=== PATIENT | male | born 1955 | race Caucasian/White ===

== ENCOUNTER 2017-12-22 22:28 | Inpatient (IN) | payer MEDICARE ==
[~2017-12-22] VITALS: Ht 180.3 cm; Wt 85.3 kg
[2017-12-22] MEDS ORDERED: BUSPAR5 MG PO (22:49)
[2017-12-22] MEDS ORDERED: HUMULIN R100 U/ML SC (22:50)
[2017-12-22] MEDS ORDERED: ELIQUIS5 MG PO (22:50)
[2017-12-22] MEDS ORDERED: LASIX40 MG PO (22:50)
[2017-12-22] MEDS ORDERED: PRAVACHOL20 MG PO (22:51)
[2017-12-22] MEDS ORDERED: BETAPACE 80 MG80 MG PO (22:51)
[2017-12-22] MEDS ORDERED: GLUCOPHAGE1000 MG PO (22:51)
[2017-12-22] MEDS ORDERED: LEVOXYL75 MCG PO (22:51)
[2017-12-22] MEDS ORDERED: AMBIEN10 MG PO (22:52)
[2017-12-22] MEDS ORDERED: VITAMIN D250000 UNIT PO (22:52)
[2017-12-23] VITALS (16 sets, daily range): BP systolic 116–152; BP diastolic 49–69; BMI 26.2
[2017-12-23 00:30] LABS: BASOPHILS 0.4 % (0-2); HEMATOCRIT 33.9 % (42.0-54.0); HEMOGLOBIN 11.6 g/dL (13.5-17.5); IMMATURE GRANULOCYTES 0.1 % (0-5); LYMPHOCYTES 27.5 % (15-50); MCH 29.5 pg (26.0-34.0); MCHC 34.2 g/dL (31.0-37.0); MCV 86.3 fL (80.0-100.0); MEAN PLATELET VOLUME 8.5 fL (7.4-10.4); MONOCYTES 11.6 % (2-11); NEUTROPHILS 56.4 % (40-80); PLATELET COUNT 273 10x3/uL (130-400); RBC 3.93 10x6/uL (4.20-6.10); RDW 12.9 % (11.5-14.5); WBC 7.3 10x3/uL (4.8-10.8)
[2017-12-23 00:41] LABS: KETONE - SERUM NEGATIVE (NEGATIVE)
[2017-12-23 00:44] LABS: ALBUMIN 2.4 g/dL (3.4-5.0); ALKALINE PHOSPHATASE 92 U/L (46-116); ALT (SGPT) 18 U/L (10-68); BILIRUBIN - TOTAL 0.17 mg/dL (0.2-1.3); CALC OSMOLALITY 279 mosm/kg (275-300); CALCIUM 8.5 mg/dL (8.5-10.1); CARBON DIOXIDE 25.3 mmol/L (21.0-32.0); CHLORIDE - SERUM 100 mmol/L (98-107); CREATININE - SERUM 1.3 mg/dL (0.6-1.3); GLUCOSE 336 mg/dL (74-106); PROTEIN - SERUM 7.7 g/dL (6.4-8.2); SODIUM 130 mmol/L (136-145); UREA NITROGEN 30 mg/dL (7-18); eGFR NON AFRICAN AMERICAN 60 mL/min (90-120)
[2017-12-23 00:57] LABS: COLOR YELLOW (YELLOW)
[2017-12-23 00:58] LABS: APPEARANCE CLEAR (CLEAR); BILIRUBIN NEGATIVE (NEGATIVE); GLUCOSE 500 mg/dL (NEGATIVE); KETONE NEGATIVE (NEGATIVE); NITRITE NEGATIVE (NEGATIVE); PROTEIN NEGATIVE (NEGATIVE); UROBILINOGEN NORMAL (NORMAL)
[2017-12-23 17:08] LABS: ERYTHROCYTE SEDIMENTATION RATE 114 mm/hr (0-20)
[2017-12-24 01:12] VITALS: BP 112/42
[2017-12-24 05:42] LABS: BASOPHILS 0.5 % (0-2); EOSINOPHILS 5.6 % (0-7); HEMATOCRIT 30.8 % (42.0-54.0); HEMOGLOBIN 10.5 g/dL (13.5-17.5); IMMATURE GRANULOCYTES 0.3 % (0-5); LYMPHOCYTES 31.6 % (15-50); MCH 29.2 pg (26.0-34.0); MCHC 34.1 g/dL (31.0-37.0); MCV 85.6 fL (80.0-100.0); MEAN PLATELET VOLUME 8.5 fL (7.4-10.4); MONOCYTES 8.6 % (2-11); NEUTROPHILS 53.4 % (40-80); PLATELET COUNT 291 10x3/uL (130-400); RDW 12.8 % (11.5-14.5)
[2017-12-24 05:57] VITALS: BP 121/39
[2017-12-24 06:04] LABS: ANION GAP 11.6 mmol/L (8-16); CALCIUM 8.1 mg/dL (8.5-10.1); CARBON DIOXIDE 24.4 mmol/L (21.0-32.0); CREATININE - SERUM 1.1 mg/dL (0.6-1.3)
[2017-12-24 08:58] VITALS: BP 136/68
[2017-12-24 13:01] VITALS: Ht 180.3 cm; Wt 85.3 kg
[2017-12-24 16:16] VITALS: BP 134/68
[2017-12-24 19:58] VITALS: BP 136/64
[2017-12-25 00:39] VITALS: BP 115/64
[2017-12-25 05:20] VITALS: BP 134/64
[2017-12-25 05:54] LABS: BASOPHILS 0.5 % (0-2); HEMATOCRIT 30.6 % (42.0-54.0); HEMOGLOBIN 10.6 g/dL (13.5-17.5); IMMATURE GRANULOCYTES 0.2 % (0-5); LYMPHOCYTES 35.6 % (15-50); MCH 29.2 pg (26.0-34.0); MCHC 34.6 g/dL (31.0-37.0); MCV 84.3 fL (80.0-100.0); MEAN PLATELET VOLUME 8.6 fL (7.4-10.4); MONOCYTES 7.9 % (2-11); NEUTROPHILS 51.8 % (40-80); PLATELET COUNT 267 10x3/uL (130-400); RBC 3.63 10x6/uL (4.20-6.10); RDW 12.8 % (11.5-14.5); WBC 6.2 10x3/uL (4.8-10.8)
[2017-12-25 06:19] LABS: ALBUMIN 1.8 g/dL (3.4-5.0); ALKALINE PHOSPHATASE 85 U/L (46-116); ALT (SGPT) 16 U/L (10-68); BILIRUBIN - TOTAL 0.26 mg/dL (0.2-1.3); CALC OSMOLALITY 277 mosm/kg (275-300); CALCIUM 7.9 mg/dL (8.5-10.1); CARBON DIOXIDE 22.5 mmol/L (21.0-32.0); CHLORIDE - SERUM 104 mmol/L (98-107); CREATININE - SERUM 0.9 mg/dL (0.6-1.3); GLUCOSE 269 mg/dL (74-106); POTASSIUM - SERUM 4.4 mmol/L (3.5-5.1); PROTEIN - SERUM 6.8 g/dL (6.4-8.2); SODIUM 134 mmol/L (136-145); UREA NITROGEN 15 mg/dL (7-18); eGFR NON AFRICAN AMERICAN > 90 mL/min (90-120)
[2017-12-25 12:53] VITALS: BP 129/60
[2017-12-25 16:13] VITALS: BP 135/58
[2017-12-25 20:46] VITALS: BP 150/64
[2017-12-26 01:19] VITALS: BP 132/61
[2017-12-26 05:05] VITALS: BP 122/58
[2017-12-26 05:23] LABS: BASOPHILS 0.1 % (0-2); EOSINOPHILS 1.9 % (0-7); HEMATOCRIT 30.1 % (42.0-54.0); HEMOGLOBIN 10.5 g/dL (13.5-17.5); IMMATURE GRANULOCYTES 0.3 % (0-5); LYMPHOCYTES 23.9 % (15-50); MCH 29.5 pg (26.0-34.0); MCHC 34.9 g/dL (31.0-37.0); MCV 84.6 fL (80.0-100.0); MEAN PLATELET VOLUME 8.3 fL (7.4-10.4); MONOCYTES 8.3 % (2-11); NEUTROPHILS 65.5 % (40-80); PLATELET COUNT 289 10x3/uL (130-400); RBC 3.56 10x6/uL (4.20-6.10); RDW 12.6 % (11.5-14.5); WBC 7.4 10x3/uL (4.8-10.8)
[2017-12-26 05:56] LABS: ALBUMIN 1.9 g/dL (3.4-5.0); BILIRUBIN - TOTAL 0.29 mg/dL (0.2-1.3); CREATININE - SERUM 1.1 mg/dL (0.6-1.3)
[2017-12-26 06:06] LABS: ANION GAP 11.6 mmol/L (8-16); POTASSIUM - SERUM 3.6 mmol/L (3.5-5.1)
[2017-12-26 07:35] VITALS: BP 138/55
[2017-12-26 11:41] VITALS: BP 123/67
[2017-12-26 15:53] VITALS: BP 145/55
[2017-12-26 21:28] VITALS: BP 132/57
[2017-12-27 05:29] VITALS: BP 124/47
[2017-12-27 07:07] LABS: ALBUMIN 1.6 g/dL (3.4-5.0); ALKALINE PHOSPHATASE 80 U/L (46-116); BILIRUBIN - TOTAL 0.21 mg/dL (0.2-1.3); CALC OSMOLALITY 271 mosm/kg (275-300); CALCIUM 8.1 mg/dL (8.5-10.1); CARBON DIOXIDE 23.5 mmol/L (21.0-32.0); CHLORIDE - SERUM 103 mmol/L (98-107); GLUCOSE 197 mg/dL (74-106); POTASSIUM - SERUM 3.3 mmol/L (3.5-5.1); PROTEIN - SERUM 6.2 g/dL (6.4-8.2); SODIUM 133 mmol/L (136-145); UREA NITROGEN 16 mg/dL (7-18); eGFR NON AFRICAN AMERICAN 81 mL/min (90-120)
[2017-12-27 07:08] LABS: ALT (SGPT) 7 U/L (10-68)
[2017-12-27 07:10] LABS: BASOPHILS 0.3 % (0-2); EOSINOPHILS 2.5 % (0-7); HEMATOCRIT 28.2 % (42.0-54.0); HEMOGLOBIN 9.7 g/dL (13.5-17.5); IMMATURE GRANULOCYTES 0.1 % (0-5); LYMPHOCYTES 22.1 % (15-50); MCH 28.7 pg (26.0-34.0); MCHC 34.4 g/dL (31.0-37.0); MCV 83.4 fL (80.0-100.0); MEAN PLATELET VOLUME 8.3 fL (7.4-10.4); MONOCYTES 10.2 % (2-11); NEUTROPHILS 64.8 % (40-80); PLATELET COUNT 271 10x3/uL (130-400); RBC 3.38 10x6/uL (4.20-6.10); RDW 12.6 % (11.5-14.5); WBC 7.6 10x3/uL (4.8-10.8)
[2017-12-27 13:06] VITALS: BP 129/54
[2017-12-27 20:33] VITALS: BP 137/54
[2017-12-28 05:28] LABS: BASOPHILS 0.2 % (0-2); EOSINOPHILS 3.6 % (0-7); HEMATOCRIT 28.7 % (42.0-54.0); IMMATURE GRANULOCYTES 0.3 % (0-5); LYMPHOCYTES 23.5 % (15-50); MCHC 34.8 g/dL (31.0-37.0); MCV 83.2 fL (80.0-100.0); MEAN PLATELET VOLUME 8.3 fL (7.4-10.4); MONOCYTES 9.3 % (2-11); NEUTROPHILS 63.1 % (40-80); PLATELET COUNT 282 10x3/uL (130-400); RBC 3.45 10x6/uL (4.20-6.10); RDW 12.6 % (11.5-14.5); WBC 5.8 10x3/uL (4.8-10.8)
[2017-12-28 05:38] VITALS: BP 145/50
[2017-12-28 05:49] LABS: ALBUMIN 1.6 g/dL (3.4-5.0); ALKALINE PHOSPHATASE 87 U/L (46-116); BILIRUBIN - TOTAL 0.18 mg/dL (0.2-1.3); CALC OSMOLALITY 278 mosm/kg (275-300); CALCIUM 8.2 mg/dL (8.5-10.1); CARBON DIOXIDE 24.4 mmol/L (21.0-32.0); CHLORIDE - SERUM 105 mmol/L (98-107); GLUCOSE 208 mg/dL (74-106); POTASSIUM - SERUM 3.8 mmol/L (3.5-5.1); PROTEIN - SERUM 6.5 g/dL (6.4-8.2); SODIUM 136 mmol/L (136-145); UREA NITROGEN 14 mg/dL (7-18); eGFR NON AFRICAN AMERICAN 81 mL/min (90-120)
[2017-12-28 05:54] LABS: ALT (SGPT) 12 U/L (10-68)
[2017-12-28 21:17] VITALS: BP 134/103
[2017-12-29 05:31] LABS: BASOPHILS 0.2 % (0-2); EOSINOPHILS 2.1 % (0-7); HEMATOCRIT 26.9 % (42.0-54.0); HEMOGLOBIN 9.7 g/dL (13.5-17.5); IMMATURE GRANULOCYTES 0.2 % (0-5); LYMPHOCYTES 24.8 % (15-50); MCH 29.8 pg (26.0-34.0); MCHC 36.1 g/dL (31.0-37.0); MCV 82.8 fL (80.0-100.0); MEAN PLATELET VOLUME 8.2 fL (7.4-10.4); NEUTROPHILS 64.7 % (40-80); PLATELET COUNT 310 10x3/uL (130-400); RBC 3.25 10x6/uL (4.20-6.10); RDW 12.6 % (11.5-14.5); WBC 6.5 10x3/uL (4.8-10.8)
[2017-12-29 05:53] LABS: ALBUMIN 1.6 g/dL (3.4-5.0); ANION GAP 13.1 mmol/L (8-16); BILIRUBIN - TOTAL 0.17 mg/dL (0.2-1.3); CARBON DIOXIDE 23.6 mmol/L (21.0-32.0); CREATININE - SERUM 1.1 mg/dL (0.6-1.3); POTASSIUM - SERUM 3.7 mmol/L (3.5-5.1); PROTEIN - SERUM 6.4 g/dL (6.4-8.2)
[2017-12-29 06:35] VITALS: BP 133/64
[2017-12-29 09:03] VITALS: BP 116/41
[2017-12-29 12:11] VITALS: BP 124/87
[2017-12-29 20:08] LABS: AEROBE ID Final report (())
[2017-12-29 20:40] VITALS: BP 142/75
[2017-12-30 00:05] VITALS: BP 136/58
[2017-12-30 04:40] LABS: BASOPHILS 0.4 % (0-2); EOSINOPHILS 4.9 % (0-7); HEMATOCRIT 30.2 % (42.0-54.0); HEMOGLOBIN 10.4 g/dL (13.5-17.5); IMMATURE GRANULOCYTES 0.4 % (0-5); LYMPHOCYTES 35.7 % (15-50); MCH 29.1 pg (26.0-34.0); MCHC 34.4 g/dL (31.0-37.0); MCV 84.4 fL (80.0-100.0); MEAN PLATELET VOLUME 8.3 fL (7.4-10.4); MONOCYTES 8.5 % (2-11); NEUTROPHILS 50.1 % (40-80); PLATELET COUNT 359 10x3/uL (130-400); RBC 3.58 10x6/uL (4.20-6.10); RDW 12.6 % (11.5-14.5); WBC 5.5 10x3/uL (4.8-10.8)
[2017-12-30 04:52] VITALS: BP 136/65
[2017-12-30 04:56] LABS: CALCIUM 8.1 mg/dL (8.5-10.1); CARBON DIOXIDE 27.7 mmol/L (21.0-32.0); CREATININE - SERUM 1.2 mg/dL (0.6-1.3); POTASSIUM - SERUM 3.7 mmol/L (3.5-5.1)
[2017-12-30] MEDS ORDERED: FLAGYL500 MG PO (12:20)
[2017-12-30] MEDS ORDERED: PROTONIX40 MG PO (12:20)
[2017-12-30] MEDS ORDERED: LEVAQUIN750 MG PO (12:21)
[2017-12-30 12:53] VITALS: BP 116/56
== END 2017-12-30 18:02 | disposition home or self-care (01) | DRG 628 ==
LOC: D.ER 22:28 → D.M2 12-23 01:39 → D.EDHOLD 12-23 01:39 → D.M2 12-23 11:29
PROVIDERS: Family Medicine; Internal Medicine Nephrology; Podiatrist Foot & Ankle Surgery
PROC: 0QBN0ZZ Excision of Right Metatarsal, Open Approach (ICD-10-PCS; principal; 2017-12-25 07:30)
PROC: 0H9MXZZ Drainage of Right Foot Skin, External Approach (ICD-10-PCS; 2017-12-25 07:30)
PROC: 0HQMXZZ Repair Right Foot Skin, External Approach (ICD-10-PCS; 2017-12-28)
DX: E11.69 Type 2 diabetes mellitus with other specified complication (principal); A48.0 Gas gangrene; E43 Unspecified severe protein-calorie malnutrition; E11.52 Type 2 diabetes mellitus with diabetic peripheral angiopathy with gangrene; M86.171 Other acute osteomyelitis, right ankle and foot; E87.1 Hypo-osmolality and hyponatremia; E11.65 Type 2 diabetes mellitus with hyperglycemia; Z79.4 Long term (current) use of insulin; E03.9 Hypothyroidism, unspecified; I10 Essential (primary) hypertension; F41.9 Anxiety disorder, unspecified; I48.91 Unspecified atrial fibrillation; G47.00 Insomnia, unspecified; D64.9 Anemia, unspecified; Z68.26 Body mass index [BMI] 26.0-26.9, adult; G62.9 Polyneuropathy, unspecified

== ENCOUNTER → 2018-02-22 17:26 | Outpatient (CLI) | payer MEDICARE ==
[2017-12-24 13:01] VITALS: BMI 26.2
[~2018-02-22 17:26] MED LIST: AMBIEN10 MG PO; BETAPACE 80 MG80 MG PO; BUSPAR5 MG PO; ELIQUIS5 MG PO; FLAGYL500 MG PO; GLUCOPHAGE1000 MG PO; HUMULIN R100 U/ML SC; LASIX40 MG PO; LEVAQUIN750 MG PO; LEVEMIR IN100 UNITS/ SC; LEVOXYL75 MCG PO; PRAVACHOL20 MG PO; PROTONIX40 MG PO; VITAMIN D250000 UNIT PO
== END | disposition home or self-care (01) ==
LOC: D.LABREF 17:26
DX: L03.115 Cellulitis of right lower limb (principal)

== ENCOUNTER 2018-03-08 10:42 | Inpatient (IN) | payer MEDICARE ==
[~2018-03-08] VITALS: Ht 180.3 cm; Wt 79.4 kg
--- NOTE | ~2018-03-08 | MORECARE ---
CASE MANAGEMENT DISCHARGE SUMMARY PATIENT: CAROLE MCKENNA UNIT: [id number] ADM DATE: 03/08/18 AGE: 63 : 57 SEX: M ROOM/BED: D.2233 AUTHOR: STACI,DOC PHYSICIAN: REFERRING PHYSICIAN: ELEN VIDES DPM DATE OF SERVICE: 03/14/18 Discharge Plan Patient Name: CAROLE MCKENNA Facility: [facility]:[place] : 1955 Planned Disposition: Home with Home Health Anticipated Discharge Date: Discharge Date: 03/13/2018 Expected LOS: Initial Reviewer: [email or web address] Initial Review Date: 03/10/2018 Generated: 03/14/18 9:59 am Comments DCP- Discharge Planning Updated by [email or web address]: Maliha Flores on 03/14/18 7:[address] LATE ENTRY: PATIENT WAS DISCHARGED YESTERDAY EVENING. I CALLED AND SPOKE TO LARA WITH [facility] IN [place] AND SENT CLINICAL. SHE STATES THEY WILL SEE HIM TOMORROW. DCP- Discharge Planning Updated by [email or web address]: Maliha Flores on 03/13/18 11:[address] Patient states he does not want to use Dr. Easley for his PCP. States since he has moved to [place] that [place] or [place] is too far to drive. He would like to be established with Dr. Graham if possible. I called and spoke to Claire at Dr. Graham's office and clinical faxed to her per patient request to try and get him established with a PCP. Faxed clinical to [phone]. Patient states he would like to use [facility] in [place] if possible for dressing changes post hospitalization. CM will continue to follow and assist with discharge planning/needs. DCP- Discharge Planning Updated by [email or web address]: Maliha Flores on 03/10/18 1:[address] Patient Name: CAROLE MCKENNA Admission Status: ER Accout number: [id number] Admission Date: 03-08-2018 : 1955 Admission Diagnosis: Attending: ELEN VIDES Current LOS: 2 Anticipated DC Date: Planned Disposition: Home with Home Health Primary Insurance: MEDICARE A & B Discharge Planning Comments: CM met with patient to discuss discharge planning, he is alone in the room. States he lives alone, is independent with all ADL's and IADL's. States he ambulates with a cane. States he checks his blood sugar twice a day. States he has had [facility] in the past and may need home health again, JENNYFER for [facility] in [place] signed. I did tell the patient he would need a PCP for home health and he does not have a PCP at this time, he has seen Dr. Easley in the past prior to moving to [place]. He states he has no civil engineering design draftsperson and plans on driving himself home on discharge. He denies further need for DME. CM will continue to follow and assist with discharge planning/needs. Service Writer: Maliha Flores [facility] - Discharge Planning Initial Assessment Updated by [id number]: Maliha Flores on 03/10/18 2:15 pm * Is the patient Alert and Oriented? Yes * How many steps to enter\exit or inside your home? 0/0 * PCP No PCP * Pharmacy [facility] in [place] * Preadmission Environment Home Alone * ADLs Partial Dependent * Partial ADLs (Assistance needed) Ambulation * Equipment Cane Glucometer * List name and contact numbers for known caregivers / representatives who currently or will assist patient after discharge: No civil engineering design draftsperson * Verbal permission to speak to the caregivers and representatives has been obtained from the patient. N/A * Community resources currently utilized None * Additional services required to return to the preadmission environment? No * Can the patient safely return to the preadmission environment? Yes * Has this patient been hospitalized within the prior 30 days at any hospital? No Coverage Notice Reviewer: [id number] - Maliha Flores Notice Issued Date-Time: 03/13/2018 12:00 Notice Type: IM Discharge Notice Notice Delivered To: Patient Relationship to Patient: Self Supervisor [employer] Name: Delivery Method: HAND - Hand Delivered Racheal Days: Prior Verbal Notification: Recipient Understood Notice: Yes Recipient Signature: Yes Med Rec Note Co-signed by Attending: Coverage Notice Comment: IMM explained, signed, copy given, original placed in MR Last DP export: 03/14/18 7:52 Patient Name: CAROLE MCKENNA Page [id number] at 0859 All edits/amendments must be made on the electronic document DICTATION DATE: 03/14/18857 WOOD TURNER: ALEJANDRA 03/14/18857 RPT#: [id number] DC DATE:03/13/18 STATUS: DIS IN [facility] [address] [place] [address] END OF REPORT
--- NOTE | ~2018-03-08 | MORECARE ---
CASE MANAGEMENT DISCHARGE SUMMARY PATIENT: CAROLE MCKENNA UNIT: [id number] ADM DATE: 03/08/18 AGE: 63 : 57 SEX: M ROOM/BED: D.2233 AUTHOR: MEGHAN SMALL PHYSICIAN: REFERRING PHYSICIAN: ELEN VIDES DPM DATE OF SERVICE: 03/10/18 Discharge Plan Patient Name: CAROLE MCKENNA [facility] [facility] 1955 Planned Disposition: Home with Home Health Anticipated Discharge Date: Discharge Date: Expected LOS: Initial Reviewer: [id number] Initial Review Date: 03/10/2018 Generated: 03/10/18 3:11 pm Patient Name: CAROLE MCKENNA Page [id number] at 1411 All edits/amendments must be made on the electronic document DICTATION DATE: 03/10/18 1411 DEBT AND BUDGET COUNSELOR: ALEJANDRA 03/10/18 1411 RPT#: [id number] DC DATE: STATUS: ADM IN [facility] [address] [place] [address] END OF REPORT
--- NOTE | ~2018-03-08 | MORECARE ---
CASE MANAGEMENT DISCHARGE SUMMARY PATIENT: CAROLE MCKENNA UNIT: [id number] ADM DATE: 03/08/18 AGE: 63 : 57 SEX: M ROOM/BED: D.2233 AUTHOR: STACI,DOC PHYSICIAN: REFERRING PHYSICIAN: ELEN VIDES DPM DATE OF SERVICE: 03/14/18 Discharge Plan Patient Name: CAROLE MCKENNA Facility: [facility]:[place] : 1955 Planned Disposition: Home with Home Health Anticipated Discharge Date: Discharge Date: 03/13/2018 Expected LOS: Initial Reviewer: [email or web address] Initial Review Date: 03/10/2018 Generated: 03/14/18 9:52 am Comments DCP- Discharge Planning Updated by [email or web address]: Maliha Sandra on 03/13/18 11:[address] Patient states he does not want to use Dr. Easley for his PCP. States since he has moved to [place] that [place] or [place] is too far to drive. He would like to be established with Dr. Graham if possible. I called and spoke to Claire at Dr. Graham's office and clinical faxed to her per patient request to try and get him established with a PCP. Faxed clinical to [phone]. Patient states he would like to use [facility] in [place] if possible for dressing changes post hospitalization. CM will continue to follow and assist with discharge planning/needs. DCP- Discharge Planning Updated by [id number]: Maliha Flores on 03/10/18 1:[address] Patient Name: CAROLE MCKENNA Admission Status: ER Accout number: [id number] Admission Date: 03-08-2018 : 1955 Admission Diagnosis: Attending: ELEN VIDES Current LOS: 2 Anticipated DC Date: Planned Disposition: Home with Home Health Primary Insurance: MEDICARE A & B Discharge Planning Comments: CM met with patient to discuss discharge planning, he is alone in the room. States he lives alone, is independent with all ADL's and IADL's. States he ambulates with a cane. States he checks his blood sugar twice a day. States he has had [facility] in the past and may need home health again, JENNYFER for [facility] in [place] signed. I did tell the patient he would need a PCP for home health and he does not have a PCP at this time, he has seen Dr. Easley in the past prior to moving to [place]. He states he has no contact lens curve grinder and plans on driving himself home on discharge. He denies further need for DME. CM will continue to follow and assist with discharge planning/needs. Sportspersons: Maliha Flores [facility] - Discharge Planning Initial Assessment Updated by [email or web address]: Maliha Flores on 03/10/18 2:15 pm * Is the patient Alert and Oriented? Yes * How many steps to enter\exit or inside your home? 0/0 * PCP No PCP * Pharmacy [facility] in [place] * Preadmission Environment Home Alone * ADLs Partial Dependent * Partial ADLs (Assistance needed) Ambulation * Equipment Cane Glucometer * List name and contact numbers for known caregivers / representatives who currently or will assist patient after discharge: No contact lens curve grinder * Verbal permission to speak to the caregivers and representatives has been obtained from the patient. N/A * Community resources currently utilized None * Additional services required to return to the preadmission environment? No * Can the patient safely return to the preadmission environment? Yes * Has this patient been hospitalized within the prior 30 days at any hospital? No External Providers External Provider: [facility] [facility] Next Contact Date: Service Request Date: Service Type: Resolution: Reviewer: Comments: Coverage Notice Reviewer: [id number] - Maliha Flores Notice Issued Date-Time: 03/13/2018 12:00 Notice Type: IM Discharge Notice Notice Delivered To: Patient Relationship to Patient: Self Pole Tester Name: Delivery Method: HAND - Hand Delivered Racheal Days: Prior Verbal Notification: Recipient Understood Notice: Yes Recipient Signature: Yes Med Rec Note Co-signed by Attending: Coverage Notice Comment: IMM explained, signed, copy given, original placed in MR Last DP export: 03/13/18 11:07 Patient Name: CAROLE MCKENNA Page [id number] at 0852 All edits/amendments must be made on the electronic document DICTATION DATE: 03/14/18 0851 PATENT SEARCHER: ALEJANDRA 03/14/18 0851 RPT#: [id number] DC DATE:03/13/18 STATUS: DIS IN [facility] [address] [place] [address] END OF REPORT
--- NOTE | ~2018-03-08 | MORECARE ---
CASE MANAGEMENT DISCHARGE SUMMARY PATIENT: CAROLE MCKENNA UNIT: [id number] ADM DATE: 03/08/18 AGE: 63 : 57 SEX: M ROOM/BED: D.2233 AUTHOR: STACI,DOC PHYSICIAN: REFERRING PHYSICIAN: ELEN VIDES DPM DATE OF SERVICE: 03/13/18 Discharge Plan Patient Name: CAROLE MCKENNA Facility: [facility]:[place] : 1955 Planned Disposition: Home with Home Health Anticipated Discharge Date: Discharge Date: Expected LOS: Initial Reviewer: [email or web address] Initial Review Date: 03/10/2018 Generated: 03/13/18 1:00 pm Comments DCP- Discharge Planning Updated by [id number]: Maliha Flores on 03/10/18 1:[address] Patient Name: CAROLE MCKENNA Admission Status: ER Accout number: [id number] Admission Date: 03-08-2018 : 1955 Admission Diagnosis: Attending: ELEN VIDES Current LOS: 2 Anticipated DC Date: Planned Disposition: Home with Home Health Primary Insurance: MEDICARE A & B Discharge Planning Comments: CM met with patient to discuss discharge planning, he is alone in the room. States he lives alone, is independent with all ADL's and IADL's. States he ambulates with a cane. States he checks his blood sugar twice a day. States he has had [facility] in the past and may need home health again, JENNYFER for [facility] in [place] signed. I did tell the patient he would need a PCP for home health and he does not have a PCP at this time, he has seen Dr. Easley in the past prior to moving to [place]. He states he has no auto parts counter person and plans on driving himself home on discharge. He denies further need for DME. CM will continue to follow and assist with discharge planning/needs. Automotive Parts Specialist: Maliha Flores [facility] - Discharge Planning Initial Assessment Updated by [id number]: Maliha Flores on 03/10/18 2:15 pm * Is the patient Alert and Oriented? Yes * How many steps to enter\exit or inside your home? 0/0 * PCP No PCP * Pharmacy [facility] in [place] * Preadmission Environment Home Alone * ADLs Partial Dependent * Partial ADLs (Assistance needed) Ambulation * Equipment Cane Glucometer * List name and contact numbers for known caregivers / representatives who currently or will assist patient after discharge: No auto parts counter person * Verbal permission to speak to the caregivers and representatives has been obtained from the patient. N/A * Community resources currently utilized None * Additional services required to return to the preadmission environment? No * Can the patient safely return to the preadmission environment? Yes * Has this patient been hospitalized within the prior 30 days at any hospital? No External Providers External Provider: OTHER-OTHER Next Contact Date: Service Request Date: Service Type: Resolution: Reviewer: Comments: Last DP export: 03/10/18 1:35 p Patient Name: CAROLE MCKENNA Page 84056 at 1200 All edits/amendments must be made on the electronic document DICTATION DATE: 03/13/18 1200 SENIOR BIOSTATISTICIAN/GROUP LEADER: ALEJANDRA 03/13/18 1200 RPT#: [id number] DC DATE: STATUS: ADM IN [facility] [address] [place] [address] END OF REPORT
--- NOTE | ~2018-03-08 | MORECARE ---
CASE MANAGEMENT DISCHARGE SUMMARY PATIENT: CAROLE MCKENNA UNIT: [id number] ADM DATE: 03/08/18 AGE: 63 : 57 SEX: M ROOM/BED: D.2233 AUTHOR: STACI,DOC PHYSICIAN: REFERRING PHYSICIAN: ELEN VIDES DPM DATE OF SERVICE: 03/13/18 Discharge Plan Patient Name: CAROLE MCKENNA Facility: [facility]:[place] : 1955 Planned Disposition: Home with Home Health Anticipated Discharge Date: Discharge Date: Expected LOS: Initial Reviewer: [id number] Initial Review Date: 03/10/2018 Generated: 03/13/18 1:07 pm Comments DCP- Discharge Planning Updated by [email or web address]: Maliha Sandra on 03/13/18 11:[address] Patient states he does not want to use Dr. Easley for his PCP. States since he has moved to [place] that [place] or [place] is too far to drive. He would like to be established with Dr. Graham if possible. I called and spoke to Claire at Dr. Graham's office and clinical faxed to her per patient request to try and get him established with a PCP. Faxed clinical to [phone]. Patient states he would like to use [facility] in [place] if possible for dressing changes post hospitalization. CM will continue to follow and assist with discharge planning/needs. DCP- Discharge Planning Updated by [email or web address]: Maliha Ayalamorgan on 03/10/18 1:[address] Patient Name: CAROLE MCKENNA Admission Status: ER Accout number: [id number] Admission Date: 03-08-2018 : 1955 Admission Diagnosis: Attending: ELEN VIDES Current LOS: 2 Anticipated DC Date: Planned Disposition: Home with Home Health Primary Insurance: MEDICARE A & B Discharge Planning Comments: CM met with patient to discuss discharge planning, he is alone in the room. States he lives alone, is independent with all ADL's and IADL's. States he ambulates with a cane. States he checks his blood sugar twice a day. States he has had [facility] in the past and may need home health again, JENNYFER for [facility] in [place] signed. I did tell the patient he would need a PCP for home health and he does not have a PCP at this time, he has seen Dr. Easley in the past prior to moving to [place]. He states he has no jewelry salesperson and plans on driving himself home on discharge. He denies further need for DME. CM will continue to follow and assist with discharge planning/needs. First Aid Attendant: Maliha Flores [facility] - Discharge Planning Initial Assessment Updated by [email or web address]: Maliha Flores on 03/10/18 2:15 pm * Is the patient Alert and Oriented? Yes * How many steps to enter\exit or inside your home? 0/0 * PCP No PCP * Pharmacy [facility] in [place] * Preadmission Environment Home Alone * ADLs Partial Dependent * Partial ADLs (Assistance needed) Ambulation * Equipment Cane Glucometer * List name and contact numbers for known caregivers / representatives who currently or will assist patient after discharge: No jewelry salesperson * Verbal permission to speak to the caregivers and representatives has been obtained from the patient. N/A * Community resources currently utilized None * Additional services required to return to the preadmission environment? No * Can the patient safely return to the preadmission environment? Yes * Has this patient been hospitalized within the prior 30 days at any hospital? No Coverage Notice Reviewer: [id number] - Maliha Flores Notice Issued Date-Time: 03/13/2018 12:00 Notice Type: IM Discharge Notice Notice Delivered To: Patient Relationship to Patient: Self Pocket Closer Name: Delivery Method: HAND - Hand Delivered Racheal Days: Prior Verbal Notification: Recipient Understood Notice: Yes Recipient Signature: Yes Med Rec Note Co-signed by Attending: Coverage Notice Comment: IMM explained, signed, copy given, original placed in MR Last DP export: 03/13/18 11:00 Patient Name: CAROLE MCKENNA Page 09535 at 1207 All edits/amendments must be made on the electronic document DICTATION DATE: 03/13/187 INSOLE AND OUTSOLE PREPARER: ALEJANDRA 03/13/181206 RPT#: [id number] DC DATE: STATUS: ADM IN [facility] [address] [place] [address] END OF REPORT
--- NOTE | ~2018-03-08 | MORECARE ---
CASE MANAGEMENT DISCHARGE SUMMARY PATIENT: CAROLE MCKENNA UNIT: [id number] ADM DATE: 03/08/18 AGE: 63 : 57 SEX: M ROOM/BED: D.2233 AUTHOR: STACI,DOC PHYSICIAN: REFERRING PHYSICIAN: ELEN VIDES DPM DATE OF SERVICE: 03/14/18 Discharge Plan Patient Name: CAROLE MCKENNA Facility: [facility]:[place] : 1955 Planned Disposition: Home with Home Health Anticipated Discharge Date: Discharge Date: 03/13/2018 Expected LOS: 0 Initial Reviewer: [email or web address] Initial Review Date: 03/10/2018 Generated: 03/14/18 10:27 am Comments DCP- Discharge Planning Updated by [email or web address]: Maliha Flores on 03/14/18 7:[address] LATE ENTRY: PATIENT WAS DISCHARGED YESTERDAY EVENING. I CALLED AND SPOKE TO LARA WITH [facility] IN [place] AND SENT CLINICAL. SHE STATES THEY WILL SEE HIM TOMORROW. DCP- Discharge Planning Updated by [id number]: Maliha Flores on 03/13/18 11:[address] Patient states he does not want to use Dr. Easley for his PCP. States since he has moved to [place] that [place] or [place] is too far to drive. He would like to be established with Dr. Graham if possible. I called and spoke to Claire at Dr. Graham's office and clinical faxed to her per patient request to try and get him established with a PCP. Faxed clinical to [phone]. Patient states he would like to use [facility] in [place] if possible for dressing changes post hospitalization. CM will continue to follow and assist with discharge planning/needs. DCP- Discharge Planning Updated by [email or web address]: Maliha Sandra on 03/10/18 1:[address] Patient Name: CAROLE MCKENNA Admission Status: ER Accout number: [id number] Admission Date: 03-08-2018 : 1955 Admission Diagnosis: Attending: ELEN VIDES Current LOS: 2 Anticipated DC Date: Planned Disposition: Home with Home Health Primary Insurance: MEDICARE A & B Discharge Planning Comments: CM met with patient to discuss discharge planning, he is alone in the room. States he lives alone, is independent with all ADL's and IADL's. States he ambulates with a cane. States he checks his blood sugar twice a day. States he has had [facility] in the past and may need home health again, JENNYFRE for [facility] in [place] signed. I did tell the patient he would need a PCP for home health and he does not have a PCP at this time, he has seen Dr. Easley in the past prior to moving to [place]. He states he has no sales person and plans on driving himself home on discharge. He denies further need for DME. CM will continue to follow and assist with discharge planning/needs. Teller Manager: Maliha Flores [facility] - Discharge Planning Initial Assessment Updated by [id number]: Maliha Flores on 03/10/18 2:15 pm * Is the patient Alert and Oriented? Yes * How many steps to enter\exit or inside your home? 0/0 * PCP No PCP * Pharmacy [facility] in [place] * Preadmission Environment Home Alone * ADLs Partial Dependent * Partial ADLs (Assistance needed) Ambulation * Equipment Cane Glucometer * List name and contact numbers for known caregivers / representatives who currently or will assist patient after discharge: No sales person * Verbal permission to speak to the caregivers and representatives has been obtained from the patient. N/A * Community resources currently utilized None * Additional services required to return to the preadmission environment? No * Can the patient safely return to the preadmission environment? Yes * Has this patient been hospitalized within the prior 30 days at any hospital? No Coverage Notice Reviewer: [id number] - Maliha Flores Notice Issued Date-Time: 03/13/2018 12:00 Notice Type: IM Discharge Notice Notice Delivered To: Patient Relationship to Patient: Self Butter Melter Name: Delivery Method: HAND - Hand Delivered Racheal Days: Prior Verbal Notification: Recipient Understood Notice: Yes Recipient Signature: Yes Med Rec Note Co-signed by Attending: Coverage Notice Comment: IMM explained, signed, copy given, original placed in MR Last DP export: 03/14/18 7:59 Patient Name: CAROLE MCKENNA Page 96686 at 0927 All edits/amendments must be made on the electronic document DICTATION DATE: 03/14/18925 POOL NURSE: ALEJANDRA 03/14/18925 RPT#: [id number] DC DATE:03/13/18 STATUS: DIS IN [facility] [address] [facility] [place] [address] END OF REPORT
--- NOTE | ~2018-03-08 | MORECARE ---
CASE MANAGEMENT DISCHARGE SUMMARY PATIENT: CAROLE MCKENNA UNIT: [id number] ADM DATE: 03/08/18 AGE: 63 : 57 SEX: M ROOM/BED: D.2233 AUTHOR: MEGHAN SMALL PHYSICIAN: REFERRING PHYSICIAN: ELEN VIDES DPM DATE OF SERVICE: 03/10/18 Discharge Plan Patient Name: CAROLE MCKENNA [facility] : 1955 Planned Disposition: Home with Home Health Anticipated Discharge Date: Discharge Date: Expected LOS: Initial Reviewer: [email or web address] Initial Review Date: 03/10/2018 Generated: 03/10/18 3:22 pm [facility] - Discharge Planning Initial Assessment Updated by [email or web address]: Maliha Flores on 03/10/18 2:15 pm * Is the patient Alert and Oriented? Yes * How many steps to enter\exit or inside your home? 0/0 * PCP No PCP * Pharmacy [facility] in [place] * Preadmission Environment Home Alone * ADLs Partial Dependent * Partial ADLs (Assistance needed) Ambulation * Equipment Cane Glucometer * List name and contact numbers for known caregivers / representatives who currently or will assist patient after discharge: No contact center specialist * Verbal permission to speak to the caregivers and representatives has been obtained from the patient. N/A * Community resources currently utilized None * Additional services required to return to the preadmission environment? No * Can the patient safely return to the preadmission environment? Yes * Has this patient been hospitalized within the prior 30 days at any hospital? No Last DP export: 03/10/18 1:11 p Patient Name: CAROLE MCKENNA Page 48907 at 1422 All edits/amendments must be made on the electronic document DICTATION DATE: 03/10/181420 PRODUCTION TESTER: ALEJANDRA 03/10/18 142 RPT#: [id number] DC DATE: STATUS: ADM IN [facility] [address] [place] [address] END OF REPORT
--- NOTE | ~2018-03-08 | MORECARE ---
CASE MANAGEMENT DISCHARGE SUMMARY PATIENT: CAROLE MCKENNA UNIT: [id number] ADM DATE: 03/08/18 AGE: 63 : 57 SEX: M ROOM/BED: D.2233 AUTHOR: TSACI,DOC PHYSICIAN: REFERRING PHYSICIAN: ELEN VIDES DPM DATE OF SERVICE: 03/10/18 Discharge Plan Patient Name: CAROLE MCKENNA Facility: [facility]:[place] : 1955 Planned Disposition: Home with Home Health Anticipated Discharge Date: Discharge Date: Expected LOS: Initial Reviewer: [email or web address] Initial Review Date: 03/10/2018 Generated: 03/10/18 3:35 pm Comments DCP- Discharge Planning Updated by [email or web address]: Maliha Flores on 03/10/18 1:[address] Patient Name: CAROLE MCKENNA Admission Status: ER Accout number: [id number] Admission Date: 03-08-2018 : 1955 Admission Diagnosis: Attending: ELEN VIDES Current LOS: 2 Anticipated DC Date: Planned Disposition: Home with Home Health Primary Insurance: MEDICARE A & B Discharge Planning Comments: CM met with patient to discuss discharge planning, he is alone in the room. States he lives alone, is independent with all ADL's and IADL's. States he ambulates with a cane. States he checks his blood sugar twice a day. States he has had [facility] in the past and may need home health again, JENNYFER for [facility] in [place] signed. I did tell the patient he would need a PCP for home health and he does not have a PCP at this time, he has seen Dr. Easley in the past prior to moving to [place]. He states he has no contact clerk and plans on driving himself home on discharge. He denies further need for DME. CM will continue to follow and assist with discharge planning/needs. Bryologist: Maliha Flores DCPIA - Discharge Planning Initial Assessment Updated by [email or web address]: Maliha Flores on 03/10/18 2:15 pm * Is the patient Alert and Oriented? Yes * How many steps to enter\exit or inside your home? 0/0 * PCP No PCP * Pharmacy [facility] in [place] * Preadmission Environment Home Alone * ADLs Partial Dependent * Partial ADLs (Assistance needed) Ambulation * Equipment Cane Glucometer * List name and contact numbers for known caregivers / representatives who currently or will assist patient after discharge: No contact clerk * Verbal permission to speak to the caregivers and representatives has been obtained from the patient. N/A * Community resources currently utilized None * Additional services required to return to the preadmission environment? No * Can the patient safely return to the preadmission environment? Yes * Has this patient been hospitalized within the prior 30 days at any hospital? No Last DP export: 03/10/18 1:22 p Patient Name: CAROLE MCKENNA Page [id number] at 1435 All edits/amendments must be made on the electronic document DICTATION DATE: 03/10/18 1435 PATIENT RELATIONS LIAISON: ALEJANDRA 03/10/18 143 RPT#: [id number] DC DATE: STATUS: ADM IN [facility] [address] [place] [address] END OF REPORT
[~2018-03-08 10:42] MED LIST changes: -LEVEMIR IN100 UNITS/ SC
[2018-03-08 11:51] LABS: ALBUMIN 1.5 g/dL (3.4-5.0); ALKALINE PHOSPHATASE 107 U/L (46-116); ALT (SGPT) 11 U/L (10-68); BILIRUBIN - TOTAL 0.14 mg/dL (0.2-1.3); CALC OSMOLALITY 278 mosm/kg (275-300); CALCIUM 8.6 mg/dL (8.5-10.1); CARBON DIOXIDE 27.3 mmol/L (21.0-32.0); CHLORIDE - SERUM 103 mmol/L (98-107); POTASSIUM - SERUM 4.1 mmol/L (3.5-5.1); PROTEIN - SERUM 7.4 g/dL (6.4-8.2); SODIUM 136 mmol/L (136-145); UREA NITROGEN 20 mg/dL (7-18); eGFR NON AFRICAN AMERICAN 80 mL/min (90-120)
[2018-03-08 11:53] LABS: GLUCOSE 164 mg/dL (74-106)
[2018-03-08 12:05] LABS: BASOPHILS 0.1 % (0-2); EOSINOPHILS 1.6 % (0-7); HEMATOCRIT 30.2 % (42.0-54.0); HEMOGLOBIN 10.3 g/dL (13.5-17.5); IMMATURE GRANULOCYTES 0.2 % (0-5); LYMPHOCYTES 19.3 % (15-50); MCH 28.5 pg (26.0-34.0); MCHC 34.1 g/dL (31.0-37.0); MCV 83.4 fL (80.0-100.0); MEAN PLATELET VOLUME 8.1 fL (7.4-10.4); MONOCYTES 6.5 % (2-11); NEUTROPHILS 72.3 % (40-80); PLATELET COUNT 426 10x3/uL (130-400); RBC 3.62 10x6/uL (4.20-6.10); RDW 13.1 % (11.5-14.5); WBC 8.6 10x3/uL (4.8-10.8)
[2018-03-08 19:36] VITALS: BP 142/56
[2018-03-08] MEDS ORDERED: LEVEMIR IN100 UNITS/ SC (21:10)
[2018-03-08 23:54] VITALS: BP 144/50; BMI 24.4
[2018-03-09 05:00] VITALS: BP 147/52
[2018-03-09 05:09] LABS: BASOPHILS 0.2 % (0-2); EOSINOPHILS 3.9 % (0-7); HEMATOCRIT 30.6 % (42.0-54.0); HEMOGLOBIN 10.3 g/dL (13.5-17.5); IMMATURE GRANULOCYTES 0.2 % (0-5); LYMPHOCYTES 24.3 % (15-50); MCH 27.9 pg (26.0-34.0); MCHC 33.7 g/dL (31.0-37.0); MCV 82.9 fL (80.0-100.0); MONOCYTES 10.1 % (2-11); NEUTROPHILS 61.3 % (40-80); PLATELET COUNT 399 10x3/uL (130-400); RBC 3.69 10x6/uL (4.20-6.10); RDW 13.1 % (11.5-14.5)
[2018-03-09 05:14] LABS: WBC 5.3 10x3/uL (4.8-10.8)
[2018-03-09 05:18] LABS: CALC OSMOLALITY 277 mosm/kg (275-300); CALCIUM 8.6 mg/dL (8.5-10.1); CARBON DIOXIDE 24.9 mmol/L (21.0-32.0); CHLORIDE - SERUM 102 mmol/L (98-107); CREATININE - SERUM 0.8 mg/dL (0.6-1.3); POTASSIUM - SERUM 4.1 mmol/L (3.5-5.1); SODIUM 134 mmol/L (136-145); UREA NITROGEN 16 mg/dL (7-18); eGFR NON AFRICAN AMERICAN > 90 mL/min (90-120)
[2018-03-09 05:28] LABS: GLUCOSE 266 mg/dL (74-106)
[2018-03-09 08:35] VITALS: BP 149/53
[2018-03-09 11:41] VITALS: Ht 180.3 cm; Wt 79.4 kg
[2018-03-09 13:48] VITALS: BP 150/55
[2018-03-09 17:04] LABS: % SATURATION 19 % (15-55); IRON 27 ug/dl (35-150); TOTAL IRON BIND CAPACITY 140 ug/dl (260-445); UNSAT IRON BIND CAPACITY 113 ug/dl (150-375)
[2018-03-09 17:53] VITALS: BP 161/65
[2018-03-09 20:00] VITALS: BP 123/48
[2018-03-10 04:00] VITALS: BP 146/62
[2018-03-10 07:31] LABS: FOLATE (FOLIC ACID) - SERUM 8.6 ng/mL (>3.0)
[2018-03-10 08:34] VITALS: BP 160/67
[2018-03-10 10:01] LABS: CREATININE - URINE 77.4 mg/dL (30-125)
[2018-03-10 10:02] LABS: PROTEIN - URINE 481.1 mg/dL (0.0-11.9)
[2018-03-10 10:09] LABS: APPEARANCE CLEAR (CLEAR); BILIRUBIN NEGATIVE (NEGATIVE); COLOR YELLOW (YELLOW); GLUCOSE 250 mg/dL (NEGATIVE); KETONE NEGATIVE (NEGATIVE); NITRITE NEGATIVE (NEGATIVE); PROTEIN 3+ mg/dL (NEGATIVE); SPECIFIC GRAVITY 1.015 (1.005-1.020); UROBILINOGEN NORMAL (NORMAL)
[2018-03-10 10:10] LABS: BACTERIA FEW /hpf (NONE SEEN); EPITHELIAL CELLS NSEEN /hpf (0-5); RED CELLS - URINE 0-5 /hpf (0-5); WHITE CELLS - URINE RARE /hpf (0-5)
[2018-03-10 10:13] LABS: BASOPHILS 0.2 % (0-2); EOSINOPHILS 3.6 % (0-7); HEMATOCRIT 27.8 % (42.0-54.0); HEMOGLOBIN 9.5 g/dL (13.5-17.5); MCH 28.1 pg (26.0-34.0); MCHC 34.2 g/dL (31.0-37.0); MCV 82.2 fL (80.0-100.0); MEAN PLATELET VOLUME 7.7 fL (7.4-10.4); MONOCYTES 6.5 % (2-11); NEUTROPHILS 60.7 % (40-80); RBC 3.38 10x6/uL (4.20-6.10); RDW 12.9 % (11.5-14.5); WBC 4.5 10x3/uL (4.8-10.8)
[2018-03-10 10:14] LABS: PLATELET COUNT 302 10x3/uL (130-400)
[2018-03-10 10:22] LABS: CALC OSMOLALITY 281 mosm/kg (275-300); CALCIUM 7.8 mg/dL (8.5-10.1); CARBON DIOXIDE 22.5 mmol/L (21.0-32.0); CHLORIDE - SERUM 103 mmol/L (98-107); POTASSIUM - SERUM 4.2 mmol/L (3.5-5.1); SODIUM 134 mmol/L (136-145); UREA NITROGEN 14 mg/dL (7-18); eGFR NON AFRICAN AMERICAN 80 mL/min (90-120)
[2018-03-10 10:25] LABS: GLUCOSE 330 mg/dL (74-106)
[2018-03-10 12:22] VITALS: BP 111/97
[2018-03-10 16:35] VITALS: BP 158/77
[2018-03-10 21:16] VITALS: BP 147/47
[2018-03-11 04:17] VITALS: BP 162/71
[2018-03-11 06:44] LABS: BASOPHILS 0.2 % (0-2); EOSINOPHILS 2.9 % (0-7); HEMATOCRIT 28.5 % (42.0-54.0); HEMOGLOBIN 9.5 g/dL (13.5-17.5); IMMATURE GRANULOCYTES 0.2 % (0-5); LYMPHOCYTES 22.8 % (15-50); MCH 27.5 pg (26.0-34.0); MCHC 33.3 g/dL (31.0-37.0); MCV 82.4 fL (80.0-100.0); MEAN PLATELET VOLUME 8.1 fL (7.4-10.4); MONOCYTES 6.8 % (2-11); NEUTROPHILS 67.1 % (40-80); RBC 3.46 10x6/uL (4.20-6.10); RDW 13.1 % (11.5-14.5)
[2018-03-11 06:48] LABS: PLATELET COUNT 392 10x3/uL (130-400); WBC 6.6 10x3/uL (4.8-10.8)
[2018-03-11 07:03] LABS: CALC OSMOLALITY 285 mosm/kg (275-300); CALCIUM 7.8 mg/dL (8.5-10.1); CARBON DIOXIDE 23.9 mmol/L (21.0-32.0); CHLORIDE - SERUM 106 mmol/L (98-107); CREATININE - SERUM 0.8 mg/dL (0.6-1.3); POTASSIUM - SERUM 3.9 mmol/L (3.5-5.1); SODIUM 139 mmol/L (136-145); UREA NITROGEN 16 mg/dL (7-18); eGFR NON AFRICAN AMERICAN > 90 mL/min (90-120)
[2018-03-11 07:07] LABS: GLUCOSE 219 mg/dL (74-106)
[2018-03-11 08:43] VITALS: BP 160/67
[2018-03-11 12:00] VITALS: BP 153/66
[2018-03-11 15:00] VITALS: BP 140/67
[2018-03-11 21:31] VITALS: BP 130/48
[2018-03-12 05:59] LABS: BASOPHILS 0.1 % (0-2); EOSINOPHILS 3.9 % (0-7); HEMATOCRIT 28.4 % (42.0-54.0); HEMOGLOBIN 9.8 g/dL (13.5-17.5); IMMATURE GRANULOCYTES 0.1 % (0-5); LYMPHOCYTES 24.1 % (15-50); MCH 28.2 pg (26.0-34.0); MCHC 34.5 g/dL (31.0-37.0); MCV 81.6 fL (80.0-100.0); MEAN PLATELET VOLUME 8.1 fL (7.4-10.4); MONOCYTES 8.6 % (2-11); NEUTROPHILS 63.2 % (40-80); PLATELET COUNT 388 10x3/uL (130-400); RBC 3.48 10x6/uL (4.20-6.10); RDW 13.2 % (11.5-14.5)
[2018-03-12 06:03] VITALS: BP 149/62
[2018-03-12 06:11] LABS: CALC OSMOLALITY 279 mosm/kg (275-300); CALCIUM 8.1 mg/dL (8.5-10.1); CARBON DIOXIDE 23.5 mmol/L (21.0-32.0); CHLORIDE - SERUM 106 mmol/L (98-107); CREATININE - SERUM 0.7 mg/dL (0.6-1.3); GLUCOSE 202 mg/dL (74-106); POTASSIUM - SERUM 3.7 mmol/L (3.5-5.1); SODIUM 137 mmol/L (136-145); UREA NITROGEN 13 mg/dL (7-18); eGFR NON AFRICAN AMERICAN > 90 mL/min (90-120)
[2018-03-12 14:11] VITALS: BP 166/69
[2018-03-12 20:00] VITALS: BP 159/65
[2018-03-13 05:00] VITALS: BP 172/67
[2018-03-13 06:05] LABS: BASOPHILS 0.2 % (0-2); EOSINOPHILS 4.7 % (0-7); HEMATOCRIT 27.1 % (42.0-54.0); HEMOGLOBIN 9.2 g/dL (13.5-17.5); IMMATURE GRANULOCYTES 0.2 % (0-5); LYMPHOCYTES 23.9 % (15-50); MCH 27.7 pg (26.0-34.0); MCHC 33.9 g/dL (31.0-37.0); MCV 81.6 fL (80.0-100.0); MEAN PLATELET VOLUME 7.9 fL (7.4-10.4); MONOCYTES 8.6 % (2-11); NEUTROPHILS 62.4 % (40-80); PLATELET COUNT 365 10x3/uL (130-400); RBC 3.32 10x6/uL (4.20-6.10); RDW 13.2 % (11.5-14.5); WBC 5.9 10x3/uL (4.8-10.8)
[2018-03-13 06:26] LABS: CALC OSMOLALITY 281 mosm/kg (275-300); CALCIUM 7.5 mg/dL (8.5-10.1); CARBON DIOXIDE 23.1 mmol/L (21.0-32.0); CHLORIDE - SERUM 107 mmol/L (98-107); CREATININE - SERUM 0.7 mg/dL (0.6-1.3); GLUCOSE 176 mg/dL (74-106); POTASSIUM - SERUM 3.8 mmol/L (3.5-5.1); SODIUM 139 mmol/L (136-145); UREA NITROGEN 13 mg/dL (7-18); eGFR NON AFRICAN AMERICAN > 90 mL/min (90-120)
[2018-03-13 08:21] VITALS: BP 163/72
[2018-03-13 12:38] VITALS: BP 159/65
[2018-03-13] MEDS ORDERED: CIPRO500 MG PO (17:26)
== END 2018-03-13 18:30 | disposition home or self-care (01) | DRG 540 ==
LOC: D.ER 10:42 → D.MS 17:22
PROVIDERS: Family Medicine; Internal Medicine Nephrology
DX: M86.271 Subacute osteomyelitis, right ankle and foot (principal); E44.0 Moderate protein-calorie malnutrition; E11.9 Type 2 diabetes mellitus without complications; I10 Essential (primary) hypertension; I48.91 Unspecified atrial fibrillation; E10.21 Type 1 diabetes mellitus with diabetic nephropathy

== ENCOUNTER 2018-09-14 20:23 | Inpatient (IN) | payer MEDICARE ==
--- NOTE | ~2018-09-14 | HEMODYNAMI ---
PATIENT:CAROLE MCKENNA MEDICAL RECORD: [id number] : 57 LOCATION:[facility] D.2112 ADMISSION DATE: 09/15/18 Generatedon:09/28/201815:05 Patient name: CAROLE MCKENNA Patient #: [id number] SSN: : 1 Date of study: 09/28/2018 Page: Of Hemodynamic Procedure Report Patient Data Patient Demographics Procedure consent was obtained First Name: CAROLE Gender: Male Last Name: CLARISA : 1955 Middle Initial: YAMINI Age: 63 year(s) Patient #: [id number] Race: Unknown Additional ID: [id number] Contact details Address: [place] [address] State: [place] City: [place] Zip code: [address] Past Medical History Allergies Allergen Reaction Date Comments Reported Penicillins 09/28/2018 Admission Admission Data Admission Date: 09/15/2018 Admission Time: 1:12 Room #: [facility] Procedure Procedure Types Cath Procedure Peripheral Cath Diagnostic Procedure Abscess Abcess Abdomen Drain Procedure Description Procedure Date Procedure Date: 09/28/2018 Procedure Start Time: 14:49 Procedure Staff Name Function Hector Waller MD Performing Physician Pratik Witt RT Monitor Mone Barbour RN Nurse MARINA ARREGUIN RT Scrub Procedure Medications Medication Administration Route Dosage Lidocaine 1% added to field 20 Heparin Flush Bag added to field 1 bags (1000units/500ml NS) Hemodynamics Rest Heart Rate: 60 (bpm) Snapshots Pre Cath Intra NCS Post Cath Vital Signs Time Heart Resp SPO2 etCO2 NIBP (mmHg) Rhythm Pain Sedation Rate (ipm) (%) (mmHg) Status Level (bpm) 14:36:22 60 2 98 0 168/81(139) NSR 0 (11) 10(A) , No pain 14:40:48 59 19 99 0 171/75(136) NSR 0 (11) 10(A) , No pain 14:45:16 61 19 99 0 174/74(142) NSR 0 (11) 10(A) , No pain 14:49:46 59 15 99 0 171/74(143) NSR 0 (11) 10(A) , No pain 14:54:13 59 19 99 0 171/76(134) NSR 0 (11) 10(A) , No pain 14:58:41 60 17 98 0 173/73(141) NSR 0 (11) 10(A) , No pain 15:03:09 60 15 98 0 170/75(136) NSR 0 (11) 10(A) , No pain Medications Time Medication Route Dose Verified Delivered Reason Notes Effec tiveness by by 14:31:16 Lidocaine 1% added 20ml M J Long M J Long used for to vial MD WRIGHT procedure field 14:31:28 Heparin Flush added 1 M J Long M J Long used for Bag to bags MD WRIGHT procedure (1000units/500ml field NS) Procedure Log Time Note 14:17:56 Pratik Witt RT (R) (CV) sent for patient. Start room use. 14:17:58 Time tracking: Regular hours (M-F 7:00 - 5:00) 14:18:17 Patient received from [employer] to IR Alert and oriented. Tansferred to table in Supine position. 14:18:20 Warm blankets applied, and geovanna hugger turned on for patient comfort. 14:18:25 Correct patient and procedure confirmed by team. 14:18:28 Signed procedure consent form obtained from patient. 14:19:05 - 14:19:10 Pre-procedure instructions explained to patient. 14:21:11 Patient allergic to Penicillins 14:21:20 Is the patient allergic to Iodine/contrast media? No. 14:22:39 Was the patient premedicated? No 14:23:17 If diabetic: On Metformin? Yes 14:23:20 If on Metformin: Last Dose? 09/28/2018 14:23:40 Patient diabetic? Yes. 14:25:08 Is patient on blood thinner?No 14:28:59 Snore? Yes 14:29:02 Sleep apnea? No 14:29:04 Deviated septum? No 14:29:07 Opens mouth fully? Yes 14:29:10 Sticks out tongue? Yes 14:29:21 Airway obstruction? No ? 14:29:50 Patient pain scale 0/10 ?. 14:30:05 Patient pain scale 0/10 none at this time. 14:30:51 IV patent on arrival in Right upper arm with 0.45%NaCl at [facility]. 14:31:16 Lidocaine 1% 20ml vial added to field was administered by Hector Waller MD; used for procedure; 14:31:28 Heparin Flush Bag (1000units/500ml NS) 1 bags added to field was administered by Hector Waller MD; used for procedure; 14:35:06 Vital chart was started 14:35:11 ECG and BP/O2 sat monitors applied to patient. 14:35:14 Baseline sample Acquired. 14:40:11 H&P Date Dictated: 09/28/2018 Within 30 days and on chart.. 14:40:14 Alarms reviewed by R. N. 14:40:14 Sharps counted by scrub and verified by R.N. 14:40:24 Right groin area was prepped with chlora-prep and draped in sterile fashion 14:48:15 Physician arrived 14:48:15 --------ALL STOP TIME OUT------ 14:48:16 Final Timeout: patient, procedure, and site verified with staff and physician. All members of the team are in agreement. 14:48:18 Right groin site verified by team. 14:48:25 Fire Safety Assessment: A--An alcohol-based skin anteseptic being used preoperatively., C--Open oxygen or nitrous oxide is being used. 14:48:29 Sedation plan: Local Anesthetic Medication:Lidocaine 14:48:52 Procedure started. 14:48:52 Full Disclosure recording started 14:49:04 Local anesthetic to right groin with Lidocaine 1% by Hector Waller MD.INITIAL ACCESS ONLY 14:50:09 YUCH needle opened to sterile field. 14:50:48 DOC .035 wire ([id number]) opened to sterile field. 14:51:31 Abscession 8Fr drainage catheter ([id number]) opened to sterile field. 14:51:31 BAG, DRAINAGE EMPTY 600ML W/TATIANA (MOP015) opened to sterile field. 14:53:59 STOPCOCK 3-Way Large Bore ([id number]) opened to sterile field. 15:00:45 SUTURE ETHILON 2-0 BLK MONO FS opened to sterile field. 15:01:38 Tegaderm 6 x 8 (1628) opened to sterile field. 15:03:46 Procedure ended.(Physican Out) 15:04:11 Sharps counted by scrub and verified by R.N. 15:04:13 Insertion/operative site no bleeding no hematoma. 15:04:24 Post-op/insertion site Right groin dressed using a 4 x 4 ,statlock and Tegaderm. 15:04:55 Post groin :stable 15:05:19 Post procedure instruction explained to patient.Patient verbalizes understanding. 15:05:21 Procedure and supply charges have been captured, reviewed, submitted an d are correct. 15:05:26 Report given to [facility] II. 15:05:30 Patient transfered to [facility] II with Bed. 15:05:56 Vital chart was stopped Device Usage Item Name Manufacture Quantity Catalog Hospital Part Current Minimal Lo t# / Number Charge Number Stock Stock Serial# Code [facility] [id number] [id number] 5 82 22955 needle DOC .035 Ponder Medical 1 [id number] 209396 [id number] 5 wire (D75318) Abscession Angiodynamics 1 [id number] 577625 522740 504336 5 8Fr drainage catheter (07144538) BAG, [facility] 1 [id number] 455808 917749 197869 5 DRAINAGE EMPTY 600ML W/TATIANA (MNL724) [facility] D58091 856880 5653 026060 5 [address] Large Bore (Q72920) SUTURE Ethicon 1 664H 426040 372952 5 ETHILON 2-0 BLK MONO FS Tegaderm 6 3M 1 1628 [id number] 093323 5 x 8 (1628) Signature Audit [place] Stage Time Signature Unsigned Intra-Procedure 09/28/2018 Pratik 3:05:51 PM Shuffield RT (R) (CV) Signatures Monitor : Pratik Signature : Shuffield RT Date : Time : [address] [place] [address]
--- NOTE | ~2018-09-14 | HEMODYNAMI ---
PATIENT:CAROLE MCKENNA MEDICAL RECORD: [id number] : 57 LOCATION:[facility] D.2 ADMISSION DATE: 09/15/18 Generatedon:10/19/201810:17 Patient name: CAROLE MCKENNA Patient #: [id number] SSN: : 1 Date of study: 10/19/2018 Page: Of Hemodynamic Procedure Report Patient Data Patient Demographics Procedure consent was obtained First Name: CAROLE Gender: Male Last Name: CLARISA : 1955 [facility] Initial: YAMINI Age: 63 year(s) Patient #: [id number] Race: Unknown Additional ID: [id number] Contact details Address: [place] [address] State: [place] City: [place] Zip code: [address] Past Medical History Allergies Allergen Reaction Date Comments Reported Penicillins 09/28/2018 Penicillins 10/03/2018 Penicillins 10/10/2018 Penicillins 10/16/2018 Penicillins 10/19/2018 Admission Admission Data Admission Date: 09/15/2018 Admission Time: 1:12 Room #: D.2112 Height (in.): 71 BSA: 2.08 (m2) Height (cm.): 180.34 BMI: 26.92 (kg/m2) Weight (lbs.): 193 Weight (kg.): 87.54 Procedure Procedure Types Cath Procedure Peripheral Cath Diagnostic Procedure Appraiser Land Peripheral Procedures Abscess Abscess Drain Injection Sclerotherapy w/Imaging Procedure Description Procedure Date Procedure Date: 10/19/2018 Procedure Start Time: 9:58 Procedure Staff Name Function Kiko Silveira MD Performing Physician Sofiya Mckeon RT Display Fabricator Mone Barbour RN Nurse MARINA ARREGUIN RT Scrub Procedure Data Cath Procedure Fluoroscopy Diagnostic fluoroscopy Total fluoroscopy Time: 0.6 time: 0.6 min min Diagnostic fluoroscopy Total fluoroscopy dose: 4 dose: 4 mGy mGy Contrast Material Contrast Material Type Amount (ml) Isovue 300 5 Procedure Medications Medication Administration Route Dosage Heparin Flush Bag added to field 1 bags (1000units/500ml NS) Hemodynamics Rest BSA: 2.08 (m2) O2 Consumption: Estimated: 242.08 (ml/min) O2 Consumption indexed : Estimated:116.38 (ml/min/m) Heart Rate: 68 (bpm) Snapshots Pre Cath Intra NCS Post Cath Vital Signs Time Heart Resp SPO2 etCO2 NIBP (mmHg) Rhythm Pain Sedation Rate (ipm) (%) (mmHg) Status Level (bpm) 9:44:44 74 10 100 0 159/72(130) NSR 0 (11) 10(A) , No pain 9:49:10 66 14 100 0 166/72(134) NSR 0 (11) 10(A) , No pain 9:53:40 63 12 100 0 171/69(126) NSR 0 (11) 10(A) , No pain 9:58:13 63 13 100 0 166/66(119) NSR 0 (11) 10(A) , No pain 10:02:33 69 12 100 0 119/103(112) NSR 0 (11) 10(A) , No pain 10:07:32 64 11 99 0 Measuring NSR 0 (11) 10(A) , No pain 10:07:44 62 9 100 0 164/68(119) NSR 0 (11) 10(A) , No pain 10:12:11 62 14 99 0 175/71(124) NSR 0 (11) 10(A) , No pain 10:16:47 65 13 99 0 166/62(126) NSR 0 (11) 10(A) , No pain Medications Time Medication Route Dose Verified Delivered Reason Notes Effect iveness by by 9:58:21 Heparin Flush added 1 Kiko Hoover used for Bag to bags Silveira Silveira procedure (1000units/500ml field MD WRIGHT NS) Procedure Log Time Note 9:25:11 Patient Height : 71 inches 9:25:11 Patient Weight : 193 lbs 9:26:08 Use device set IR Diagnostic 9:26:12 Tegaderm 4 x 4 (1626W) opened to sterile field. 9:26:13 Sterile Angiographic Pack opened to sterile field. 9:26:14 Bag Decanter () opened to sterile field. 9:29:53 - 9:41:47 Time tracking: Regular hours (M-F 7:00 - 5:00) 9:42:13 Patient received from [employer] to IR Alert and oriented. Tansferred to table in Supine position. 9:42:25 Signed procedure consent form obtained from patient. 9:42:30 H&P Date Dictated: 10/19/2018 Within 30 days and on chart.. 9:42:34 Pre-procedure instructions explained to patient. 9:42:35 Pre-op teaching completed and patient verbalized understanding. 9:42:47 Family unavailable. 9:42:52 Patient NPO since Midnight. 9:43:04 Patient allergic to Penicillins 9:43:20 Is the patient allergic to Iodine/contrast media? No. 9:43:24 - 9:43:31 ECG and BP/O2 sat monitors applied to patient. 9:43:32 Vital chart was started 9:44:32 Baseline sample Acquired. 9:44:40 - 9:44:56 ----Pre-sedation anethsthesia assessment.---- 9:45:03 Previous problem with sedation/anesthesia? No ? 9:45:06 Snore? Yes 9:45:09 Sleep apnea? No 9:45:15 Deviated septum? No 9:45:19 Opens mouth fully? Yes 9:45:22 Sticks out tongue? Yes 9:45:35 Airway obstruction? No ? 9:45:42 Dentures? No ? 9:45:54 IV patent on arrival in right forearm with D5/.45%NaCl at KVO. 9:46:24 Right thigh was prepped with chlora-prep and draped in sterile fashion. 9:57:58 Physician arrived 9:58:00 --------ALL STOP TIME OUT------ 9:58:01 Final Timeout: patient, procedure, and site verified with staff and physician. All members of the team are in agreement. 9:58:16 Procedure started. 9:58:16 Full Disclosure recording started 9:58:21 Heparin Flush Bag (1000units/500ml NS) 1 bags added to field was administered by Kiko Silveira MD; used for procedure; 10:01:13 5cc'sof contrast injected into abscess then followed with dehydrated alcohol 10:15:06 Tegaderm 6 x 8 (3284) opened to sterile field. 10:15:22 Procedure ended.(Physican Out) 10:15:59 Fluoroscopy time 00.60 minutes. 10:16:03 Fluoroscopy dose: 4 mGy 10:16:03 Flurop Dose total: 4 10:16:08 Contrast amount:Isovue 300 5ml. 10:17:07 Procedure and supply charges have been captured, reviewed, submitted an d are correct. 10:17:13 Report given to Med II. 10:17:46 Vital chart was stopped Device Usage Item Name Manufacture Quantity Catalog Hospital Part Current Minimal Lot# / Number Charge Number Stock Stock Serial# Code Tegaderm 4 x 3M 1 [id number] 5 4 (1626W) Sterile Cardinal 1 [id number] 5 Angiographic Health Pack Bag Decanter Microtek 1 2001S 637514 30909 545907 5 (2001S) Medical Inc[employer] Tegaderm 6 x 3M 1 1628 [id number] 723068 5 8 (1628) Signature Audit [place] Stage Time Signature Unsigned Intra-Procedure 10/19/2018 Sofiya Mckeon 10:17:42 AM RT(R) [facility] [address] [place] [address]
--- NOTE | ~2018-09-14 | HEMODYNAMI ---
PATIENT:CAROLE MCKENNA MEDICAL RECORD: [id number] : 57 LOCATION:[facility] D.2 ADMISSION DATE: 09/15/18 Generatedon:10/16/201811:26 Patient name: CAROLE MCKENNA Patient #: [id number] SSN: : 1 Date of study: 10/16/2018 Page: Of Hemodynamic Procedure Report Patient Data Patient Demographics Procedure consent was obtained First Name: CAROLE Gender: Male Last Name: CLARISA : 1955 [facility] Initial: YAMINI Age: 63 year(s) Patient #: [id number] Race: Unknown Additional ID: [id number] Contact details Address: [place] [address] State: [place] City: [place] Zip code: [address] Past Medical History Allergies Allergen Reaction Date Comments Reported Penicillins 09/28/2018 Penicillins 10/03/2018 Penicillins 10/10/2018 Penicillins 10/16/2018 Admission Admission Data Admission Date: 09/15/2018 Admission Time: 1:12 Room #: D.2112 Height (in.): 71 BSA: 2.08 (m2) Height (cm.): 180.34 BMI: 26.92 (kg/m2) Weight (lbs.): 193 Weight (kg.): 87.54 Procedure Procedure Types Cath Procedure Peripheral Cath Diagnostic Procedure Vc++ Developer Peripheral Procedures Abscess Abscessogram W Exchange Procedure Description Procedure Date Procedure Date: 10/16/2018 Procedure Start Time: 11:11 Procedure Staff Name Function Kiko Silveira MD Performing Physician Sofiya Mckeon RT Sueding And Buffing Machine Operator Blanca Shroe RN Nurse Mone Barbour RN Nurse MARINA ARREGUIN RT Scrub Procedure Data Cath Procedure Fluoroscopy Diagnostic fluoroscopy Total fluoroscopy Time: 0.1 time: 0.1 min min Diagnostic fluoroscopy Total fluoroscopy dose: 1 dose: 1 mGy mGy Contrast Material Contrast Material Type Amount (ml) Isovue 300 5 Procedure Medications Medication Administration Route Dosage Heparin Flush Bag added to field 1 bags (1000units/500ml NS) Lidocaine 1% added to field 20 Hemodynamics Rest BSA: 2.08 (m2) O2 Consumption: Estimated: 234.84 (ml/min) O2 Consumption indexed : Estimated:112.9 (ml/min/m) Heart Rate: 59 (bpm) Snapshots Pre Cath Intra NCS Post Cath Vital Signs Time Heart Resp SPO2 etCO2 NIBP (mmHg) Rhythm Pain Sedation Rate (ipm) (%) (mmHg) Status Level (bpm) 11:06:11 61 13 100 0 134/67(117) NSR 0 (11) 10(A) , No pain 11:10:23 62 9 98 0 144/74(119) NSR 0 (11) 10(A) , No pain 11:14:39 57 9 100 0 151/70(124) NSR 0 (11) 10(A) , No pain 11:18:59 58 10 99 0 150/69(124) NSR 0 (11) 10(A) , No pain 11:23:17 58 14 99 0 140/70(124) NSR 0 (11) 10(A) , No pain Medications Time Medication Route Dose Verified Delivered Reason Notes Effec tiveness by by 11:09:40 Heparin Flush added 1 Kiko Hoover used for Bag to bags Silveira Silveira procedure (1000units/500ml field MD WRIGHT NS) 11:09:54 Lidocaine 1% added 20ml Kiko Hoover used for to vial Silveira Silveira procedure field MD WRIGHT Procedure Log Time Note 11:03:38 Patient Height : 71 inches 11:03:44 Patient Weight : 193 lbs 11:04:16 Time tracking: Regular hours (M-F 7:00 - 5:00) 11:04:58 Patient received from [employer] to IR Alert and oriented. Tansferred to table in Supine position. 11:05:01 Signed procedure consent form obtained from patient. 11:05:03 ECG and BP/O2 sat monitors applied to patient. 11:05:13 Vital chart was started 11:05:16 Baseline sample Acquired. 11:05:17 Baseline sample Acquired. 11:05:20 Full Disclosure recording started 11:05:21 - 11:05:26 H&P Date Dictated: 10/16/2018 Within 30 days and on chart.. 11:05:28 Pre-procedure instructions explained to patient. 11:05:29 Pre-op teaching completed and patient verbalized understanding. 11:05:38 Family unavailable. 11:05:41 Patient NPO since Midnight. 11:05:52 Patient allergic to Penicillins 11:05:56 Is the patient allergic to Iodine/contrast media? No. 11:06:00 - 11:06:02 ----Pre-sedation anethsthesia assessment.----no sedation given, local anesthetic only 11:06:25 - 11:06:37 IV patent on arrival in right forearm with D5/.45%NaCl at KVO. 11:07:01 Right Hip/thigh area was prepped with chlora-prep and draped in sterile fashion. 11:08:32 Use device set IR Diagnostic 11:08:34 Sterile Angiographic Pack opened to sterile field. 11:08:34 Bag Decanter () opened to sterile field. 11:09:40 Heparin Flush Bag (1000units/500ml NS) 1 bags added to field was administered by Kiko Silveira MD; used for procedure; 11:09:54 Lidocaine 1% 20ml vial added to field was administered by Kiko Silveira MD; used for procedure; 11:10:28 Physician arrived 11:10:48 --------ALL STOP TIME OUT------ 11:10:49 Final Timeout: patient, procedure, and site verified with staff and physician. All members of the team are in agreement. 11:11:05 Procedure started. 11:21:43 Tegaderm 6 x 8 (7968) opened to sterile field. 11:21:53 abscess injected with 5ml of dehydrated alcohol 11:22:01 Procedure ended.(Physican Out) 11:22:12 Fluoroscopy time 00.10 minutes. 11:22:18 Flurop Dose total: 1 11:22:18 Fluoroscopy dose: 1 mGy 11:22:23 Contrast amount:Isovue 300 5ml. 11:24:52 Procedure and supply charges have been captured, reviewed, submitted an d are correct. 11:25:06 Report given to [facility] II. 11:25:15 Vital chart was stopped 11:25:21 Patient transfered to [facility] II with Bed. Device Usage Item Name Manufacture Quantity Catalog Hospital Part Current Minimal Lot# / Number Charge Number Stock Stock Serial# Code Sterile Cardinal 1 [id number] 5 Angiographic Health Pack Bag Decanter Microtek 1 [id number] [id number] 5 () Medical Inc. Tegaderm 6 x 3M 1 1628 067595 [id number] 5 8 (1628) Signature Audit [place] Stage Time Signature Unsigned Intra-Procedure 10/16/2018 Sofiya Mckeon 11:25:59 AM RT(R) [facility] [address] [place] [address]
--- NOTE | ~2018-09-14 | HEMODYNAMI ---
PATIENT:CAROLE MCKENNA MEDICAL RECORD: [id number] : 57 [facility] AD[facility]ION DATE: 09/15/18 Generatedon:10/03/20189:20 Patient name: CAROLE MCKENNA Patient #: [id number] SSN: : 1 Date of study: 10/03/2018 Page: Of Hemodynamic Procedure Report Patient Data Patient Demographics Procedure consent was obtained First Name: CAROLE Gender: Male Last Name: CLARISA : 1955 [facility] Initial: YAMINI Age: 63 year(s) Patient #: [id number] Race: Unknown Additional ID: [id number] Contact details Address: [place] [address] State: [place] City: [place] Zip code: [address] Past Medical History Allergies Allergen Reaction Date Comments Reported Penicillins 09/28/2018 Penicillins 10/03/2018 Admission Admission Data Admission Date: 09/15/2018 Admission Time: 1:12 Room #: [facility] Procedure Procedure Types Cath Procedure Peripheral Cath Diagnostic Procedure Abscess Sclerotherapy w/Imaging Procedure Description Procedure Date Procedure Date: 10/03/2018 Procedure Start Time: 9:07 Procedure Staff Name Function Kiko Silveira MD Performing Physician Pratik Witt RT Monitor MARINA ARREGUIN RT Scrub Blanca Shore RN Nurse Procedure Data Cath Procedure Fluoroscopy Diagnostic fluoroscopy Total fluoroscopy Time: 0.7 time: 0.7 min min Diagnostic fluoroscopy Total fluoroscopy dose: 2 dose: 2 mGy mGy Contrast Material Contrast Material Type Amount (ml) Isovue 300 20 Procedure Medications Medication Administration Route Dosage Heparin Flush Bag added to field 1 bags (1000units/500ml NS) Lidocaine 1% added to field 20 Hemodynamics Rest Heart Rate: 60 (bpm) Snapshots Pre Cath Intra NCS Post Cath Vital Signs Time Heart Resp SPO2 etCO2 NIBP (mmHg) Rhythm Pain Sedation Rate (ipm) (%) (mmHg) Status Level (bpm) 8:58:29 62 19 98 26.2 175/71(137) NSR 0 (11) 10(A) , No pain 9:02:55 59 24 23.2 177/70(134) NSR 0 (11) 10(A) , No pain 9:07:22 60 22 99 25.5 174/73(135) NSR 0 (11) 10(A) , No pain 9:11:48 60 22 99 24.8 173/72(134) NSR 0 (11) 10(A) , No pain 9:16:14 58 19 99 24.7 173/72(130) NSR 0 (11) 10(A) , No pain Medications Time Medication Route Dose Verified Delivered Reason Notes Effect iveness by by 9:04:20 Heparin Flush added 1 Kiko Hoover used for Bag to bags Silveira Silveira procedure (1000units/500ml field MD WRIGHT NS) 9:04:36 Lidocaine 1% added 20ml Kiko Hoover used for to vial Silveira Silveira procedure field MD WRIGHT Procedure Log Time Note 8:49:31 Pratik Witt RT (R) (CV) sent for patient. Start room use. 8:49:32 Time tracking: Regular hours (M-F 7:00 - 5:00) 8:49:37 Plan of Care:Hemodynamics will remain stable., Cardiac rhythm will remain stable., Comfort level will be maintained., Respiratory function will remain adequate., Patient/ family verbilizes understanding of procedure., Procedure tolerated without complication., Recovers from procedure without complications.. 8:49:57 Patient received from Med II to IR Alert and oriented. Tansferred to table in Supine position. 8:49:58 Correct patient and procedure confirmed by team. 8:50:00 Signed procedure consent form obtained from patient. 8:50:01 ECG and BP/O2 sat monitors applied to patient. 8:50:02 Full Disclosure recording started 8:50:04 8:50:11 H&P Date Dictated: 10/03/2018 Greater than 30 days; new H&P dictated by physician. Or brief H&P completed., Emergent; H&P N/A, Within 30 days and on chart., H&P Addendum completed by physician on day of procedure. (MUST COMPLETE FOR ALL OUTPATIENTS), ER History on chart., New H&P dictated by physician.. 8:50:12 Pre-procedure instructions explained to patient. 8:50:12 Pre-op teaching completed and patient verbalized understanding. 8:52:49 Family in waiting room. 8:52:51 Patient NPO since Midnight. 8:52:57 Is patient on blood thinner?No 8:52:58 Patient diabetic? Yes. 8:52:59 If diabetic: On Metformin? No 8:53:01 8:53:02 ----Pre-sedation anethsthesia assessment.---- 8:53:58 Previous problem with sedation/anesthesia? No no 8:53:59 Snore? Yes 8:54:00 Sleep apnea? No 8:54:02 Deviated septum? No 8:54:03 Opens mouth fully? Yes 8:54:05 Sticks out tongue? Yes 8:54:09 Airway obstruction? No ? 8:54:30 Dentures? Yes out 8:56:19 Patient pain scale 0/10 no pain. 8:56:26 IV patent on arrival in right forearm with 0.9% NaCl at O. 8:56:30 Use device set IR Diagnostic 8:56:33 Bag Decanter (2002S) opened to sterile field. 8:56:47 Sterile Angiographic Pack opened to sterile field. 8:56:48 Tegaderm 4 x 4 (1626W) opened to sterile field. 8:57:01 Sharps counted by scrub and verified by R.N. 8:57:02 Alarms reviewed by R. N. 8:57:08 Right groin area was prepped with chlora-prep and draped in sterile fashion 8:57:14 Vital chart was started 8:57:15 Baseline sample Acquired. 9:04:20 Heparin Flush Bag (1000units/500ml NS) 1 bags added to field was administered by Kiko Silveira MD; used for procedure; 9::25 Patient allergic to Penicillins 9::36 Lidocaine 1% 20ml vial added to field was administered by Kiko Silveira MD; used for procedure; :: Physician arrived 9:: --------ALL STOP TIME OUT------ ::32 Final Timeout: patient, procedure, and site verified with staff and physician. All members of the team are in agreement. 9:06:34 Right groin site verified by team. 9:06:38 Maximum allowable Isovue 300 dose 300ml. Physician notified. (300ml for normal creatinines. For patients with creatinine of 1.7 or higher multiply weight(kg) x 5 divided by creatinine.) 9:06:42 Fire Safety Assessment: A--An alcohol-based skin anteseptic being used preoperatively., C--Open oxygen or nitrous oxide is being used. 9:06:46 Sedation plan: IV Moderate Sedation Medication:Versed, Fentanyl 9:06:57 Procedure started. 9:07:02 Local anesthetic to right groin with Lidocaine 1% by Kiko Silveira MD.INITIAL ACCESS ONLY 9:13:04 Procedure ended.(Physican Out) 9:14:15 BAG, DRAINAGE EMPTY 600ML W/TATIANA ([id number]) opened to sterile field. 9:14:28 Fluoroscopy time 00.70 minutes. 9:14:32 Fluoroscopy dose: 2 mGy 9:14:32 Flurop Dose total: 2 9:14:48 Contrast amount:Isovue 300 20ml. 9:14:49 Sharps counted by scrub and verified by R.N. 9:14:51 Insertion/operative site no bleeding no hematoma. 9:14:58 Post-op/insertion site Right groin dressed using a 4 x 4 and Tegaderm and statlock 9:17:45 Post right groin stable 9:18:20 Post procedure instruction explained to patient.Patient verbalizes understanding. 9:18:21 Procedure and supply charges have been captured, reviewed, submitted and are correct. 9:18:24 Report given to [facility]. 9:18:27 Patient transfered to Med II with Bed. 9:20:38 Vital chart was stopped Device Usage Item Name Manufacture Quantity Catalog Hospital Part Current Minimal Lot# / Number Charge Number Stock Stock Serial# Code Bag Decanter Microtek 1 [id number] 5 () Medical Inc. Sterile Cardinal 1 [id number] 5 Angiographic Health Pack Tegaderm 4 x 3M 1 [id number] 370686 [id number] 5 4 (1626W) BAG, Merit 1 [id number] 5 DRAINAGE Medical EMPTY 600ML W/TATIANA ([id number]) Signature Audit [place] Stage Time Signature Unsigned Intra-Procedure 10/03/2018 Pratik 9:20:32 AM Eduar RT (R) (CV) Signatures Monitor : Pratki Signature : Eduar RT Date : Time : [address] [address]
--- NOTE | ~2018-09-14 | HEMODYNAMI ---
PATIENT:CAROLE MCKENNA MEDICAL RECORD: [id number] : 57 LOCATION:[facility] D.2112 ADMISSION DATE: 09/15/18 Generatedon:10/06/20189:45 Patient name: CAROLE MCKENNA Patient #: [id number] SSN: : 1 Date of study: 10/06/2018 Page: Of Hemodynamic Procedure Report Patient Data Patient Demographics Procedure consent was obtained First Name: CAROLE Gender: Male Last Name: CLARISA : 1955 [facility] Initial: YAMINI Age: 63 year(s) Patient #: [id number] Race: Unknown Additional ID: [id number] Contact details Address: [place] [address] State: [place] City: [place] Zip code: [address] Past Medical History Allergies Allergen Reaction Date Comments Reported Penicillins 09/28/2018 Penicillins 10/03/2018 Admission Admission Data Admission Date: 09/15/2018 Admission Time: 1:12 Room #: [facility] Procedure Procedure Types Cath Procedure Peripheral Cath Diagnostic Procedure Abscess Sclerotherapy w/Imaging Procedure Description Procedure Date Procedure Date: 10/06/2018 Procedure Start Time: 9:30 Procedure Staff Name Function Kiko Silveira MD Performing Physician Pratik Witt RT Monitor MARINA ARREGUIN RT Scrub Blanca Shore RN Nurse Procedure Data Cath Procedure Fluoroscopy Diagnostic fluoroscopy Total fluoroscopy Time: 0.2 time: 0.2 min min Diagnostic fluoroscopy Total fluoroscopy dose: 2 dose: 2 mGy mGy Contrast Material Contrast Material Type Amount (ml) Isovue 300 10 Procedure Medications Medication Administration Route Dosage Heparin Flush Bag added to field 1 bags (1000units/500ml NS) Lidocaine 1% added to field 20 Fentanyl I.V. 25 mcg Versed I.V. 0.5 mg Hemodynamics Rest Heart Rate: 67 (bpm) Snapshots Pre Cath Intra NCS Post Cath Vital Signs Time Heart Resp SPO2 etCO2 NIBP (mmHg) Rhythm Pain Sedation Rate (ipm) (%) (mmHg) Status Level (bpm) 9:24:07 67 8 99 27.5 172/86(143) NSR 0 (11) 10(A) , No pain 9:29:02 69 14 85 28.2 164/75(137) NSR 0 (11) 10(A) , No pain 9:33:20 63 11 99 29 167/78(138) NSR 0 (11) 10(A) , No pain 9:37:41 63 17 99 28.2 164/74(139) NSR 0 (11) 10(A) , No pain 9:41:59 64 15 99 21.5 171/76(135) NSR 0 (11) 10(A) , No pain Medications Time Medication Route Dose Verified Delivered Reason Notes Effect iveness by by 9:23:27 Heparin Flush added 1 Kiko Hoover used for Bag to bags Silveira Silveira procedure (1000units/500ml field MD WRIGHT NS) 9:23:42 Lidocaine 1% added 20ml Kiko Hoover used for to vial Silveira Silveira procedure field MD WRIGHT 9:32:13 Fentanyl I.V. 25 Kiko Rios for mcg Silveiraroberta Shore RN sedation 9:32:24 Versed I.V. 0.5 Kiko Rios for mg Jordana Shore RN sedation Procedure Log Time Note 9:11:03 Blanca Shore RN sent for patient. Start room use. 9:11:09 Time tracking: Regular hours (M-F 7:00 - 5:00) 9:11:15 Plan of Care:Hemodynamics will remain stable., Cardiac rhythm will remain stable., Comfort level will be maintained., Respiratory function will remain adequate., Patient/ family verbilizes understanding of procedure., Procedure tolerated without complication., Recovers from procedure without complications.. 9:11:21 Patient received from [employer] II to IR Alert and oriented. Tansferred to table in Supine position. 9:11:24 Signed procedure consent form obtained from patient. 9:11:24 Correct patient and procedure confirmed by team. 9:11:25 ECG and BP/O2 sat monitors applied to patient. 9:11:27 9:11:30 H&P Date Dictated: 10/06/2018 Within 30 days and on chart.. 9:11:31 Pre-procedure instructions explained to patient. 9:11:31 Pre-op teaching completed and patient verbalized understanding. 9:11:33 Family in waiting room. 9:11:34 Patient NPO since Midnight. 9:12:19 Is the patient allergic to Iodine/contrast media? No. 9:12:21 Is patient on blood thinner?No 9:12:23 Patient diabetic? Yes. 9:12:25 If diabetic: On Metformin? No 9:12:26 9:12:27 9:12:27 ----Pre-sedation anethsthesia assessment.---- 9:12:36 Previous problem with sedation/anesthesia? No ? 9:12:37 Snore? Yes 9:12:39 Sleep apnea? No 9:12:42 Deviated septum? No 9:12:44 Opens mouth fully? Yes 9:12:46 Sticks out tongue? Yes 9:12:50 Airway obstruction? No ? 9:12:56 Dentures? Yes ? 9:13:05 Use device set IR Diagnostic 9:13:06 Bag Decanter (2002) opened to sterile field. 9:13:06 Sterile Angiographic Pack opened to sterile field. 9:13:07 Tegaderm 4 x 4 (1626W) opened to sterile field. 9:18:52 Patient pain scale 0/10 no pain. 9:19:11 Sharps counted by scrub and verified by R.N. 9:19: Alarms reviewed by R. N. 9:: Right groin area was prepped with chlora-prep and draped in sterile fashion 9:: Heparin Flush Bag (1000units/500ml NS) 1 bags added to field was administered by Kiko Silveira MD; used for procedure; :: Lidocaine 1% 20ml vial added to field was administered by Kiko Silveira MD; used for procedure; : Baseline sample Acquired. :: Vital chart was started 9:: Physician arrived 9:: --------ALL STOP TIME OUT------ :: Final Timeout: patient, procedure, and site verified with staff and physician. All members of the team are in agreement. 9:: Right groin site verified by team. 9:29:16 Maximum allowable Isovue 300 dose 300ml. Physician notified. (300ml for normal creatinines. For patients with creatinine of 1.7 or higher multiply weight(kg) x 5 divided by creatinine.) 9:29:21 Fire Safety Assessment: A--An alcohol-based skin anteseptic being used preoperatively., C--Open oxygen or nitrous oxide is being used. 9:29:32 Sedation plan: IV Moderate Sedation Medication:Versed, Fentanyl 9:30:05 Procedure started. 9:30:06 Full Disclosure recording started 9:32:13 Fentanyl 25 mcg I.V. was administered by Blanca Shore RN; for sedation; 9:32:24 Versed 0.5 mg I.V. was administered by Blanca Shore RN; for sedation; 9:34:09 STOPCOCK 3-Way Large Bore ([id number]) opened to sterile field. 9:40:02 BAG, DRAINAGE EMPTY 600ML W/TATIANA (KFI274) opened to sterile field. 9:40:30 Procedure ended.(Physican Out) 9:40:54 Fluoroscopy time 00.20 minutes. 9:40:57 Fluoroscopy dose: 2 mGy 9:40:57 Flurop Dose total: 2 9:41:00 Contrast amount:Isovue 300 10ml. 9:41:02 Sharps counted by scrub and verified by R.N. 9:41:03 Insertion/operative site no bleeding no hematoma. 9:41:38 Post-op/insertion site Right groin dressed using a 4 x 4 and Tegaderm and statlock 9:42:18 Post right groin stable 9:43:33 Post procedure instruction explained to patient.Patient verbalizes understanding. 9:43:43 Procedure and supply charges have been captured, reviewed, submitted and are correct. 9:44:56 Report given to [facility] II. 9:45:00 Patient transfered to [facility] with Bed. 9:45:26 Vital chart was stopped Device Usage Item Name Manufacture Quantity Catalog Hospital Part Current Minimal Lot# / Number Charge Number Stock Stock Serial# Code Bag Decanter Microtek 1 [id number] 5 (2001S) Medical Inc. Sterile Cardinal 1 [id number] 405654 5 Angiographic Health Pack Tegaderm 4 x 3M 1 1626W [id number] [id number] [id number] 5 4 (1626W) STOPCOCK [employer] 1 [id number] [id number] 3-Way Large Bore ([id number]) BAG, Merit 1 [id number] 5 DRAINAGE Medical EMPTY 600ML W/TATIANA ([id number]) Signature Audit [place] Stage Time Signature Unsigned Intra-Procedure 10/06/2018 Pratik 9:45:22 AM Eduar RT (R) (CV) Signatures Monitor : Pratik Signature : Eduar RT Date : Time : [address] [address]
--- NOTE | ~2018-09-14 | HEMODYNAMI ---
PATIENT:CAROLE MCKENNA MEDICAL RECORD: [id number] : 57 [facility] AD[facility] DATE: 09/15/18 Generatedon:10/10/201812:15 Patient name: CAROLE MCKENNA Patient #: [id number] SSN: : 1 Date of study: 10/10/2018 Page: Of Hemodynamic Procedure Report Patient Data Patient Demographics Procedure consent was obtained First Name: CAROLE Gender: Male Last Name: CLARISA : 1955 [facility] Initial: YAMINI Age: 63 year(s) Patient #: [id number] Race: Unknown Additional ID: [id number] Contact details Address: [place] [address] State: [place] City: [place] Zip code: [address] Past Medical History Allergies Allergen Reaction Date Comments Reported Penicillins 09/28/2018 Penicillins 10/03/2018 Penicillins 10/10/2018 Admission Admission Data Admission Date: 09/15/2018 Admission Time: 1:12 Room #: D.2112 Procedure Procedure Types Cath Procedure Peripheral Cath Diagnostic Procedure Abscess Procedure Description Procedure Date Procedure Date: 10/10/2018 Procedure Start Time: 11:55 Procedure Staff Name Function Giovanni Tamayo MD Performing Physician Pratik Witt RT Monitor MARINA ARREGUIN RT Scrub Blanca Shore RN Nurse Procedure Data Cath Procedure Fluoroscopy Diagnostic fluoroscopy Total fluoroscopy Time: 0.3 time: 0.3 min min Diagnostic fluoroscopy Total fluoroscopy dose: 2 dose: 2 mGy mGy Contrast Material Contrast Material Type Amount (ml) Isovue 300 5 Procedure Medications Medication Administration Route Dosage Heparin Flush Bag added to field 1 bags (1000units/500ml NS) Lidocaine 1% added to field 20 Fentanyl I.V. 25 mcg Hemodynamics Rest Heart Rate: 51 (bpm) Snapshots Pre Cath Intra NCS Post Cath Vital Signs Time Heart Resp SPO2 etCO2 NIBP (mmHg) Rhythm Pain Sedation Rate (ipm) (%) (mmHg) Status Level (bpm) 11:22:04 61 22 95 25.6 166/68(138) NSR 0 (11) 10(A) , No pain 11:26:28 63 19 93 25.6 157/74(128) NSR 0 (11) 10(A) , No pain 11:30:48 61 13 98 26.4 161/72(99) NSR 0 (11) 10(A) , No pain 11:35:12 61 24 98 27.9 164/68(133) NSR 0 (11) 10(A) , No pain 11:39:41 57 13 98 28.7 153/69(126) NSR 0 (11) 10(A) , No pain 11:44:01 60 13 98 27.2 170/73(138) NSR 0 (11) 10(A) , No pain 11:48:26 61 9 98 27.9 160/78(139) NSR 0 (11) 10(A) , No pain 11:52:49 60 24 98 27.2 163/66(134) NSR 0 (11) 10(A) , No pain 11:57:11 60 17 98 24.9 156/72(137) NSR 0 (11) 10(A) , No pain 12:01:31 98 27.9 142/71(131) NSR 0 (11) 10(A) , No pain 12:06:31 59 12 98 30.9 Measuring NSR 0 (11) 10(A) , No pain 12:06:57 61 17 97 27.9 170/76(91) NSR 0 (11) 10(A) , No pain 12:11:21 58 15 98 19.6 163/73(146) NSR 0 (11) 10(A) , No pain Medications Time Medication Route Dose Verified Delivered Reason Notes Effec tiveness by by 11:30:13 Lidocaine 1% added 20ml Giovanni Davila used for to vial Roni Tamayo procedure field MD WRIGHT 11:30:27 Heparin Flush added 1 Giovanni Davila used for Bag to bags Roni Tamayo procedure (1000units/500ml field MD WRIGHT NS) 12:13:52 Fentanyl I.V. 25 Giovanni Rios for [facility] Roni Shore RN sedation Procedure Log Time Note 10:59:05 Pratik Witt RT (R) (CV) sent for patient. Start room use. 10:59:07 Time tracking: Regular hours (M-F 7:00 - 5:00) 11:05:22 Plan of Care:Hemodynamics will remain stable., Cardiac rhythm will remain stable., Comfort level will be maintained., Respiratory function will remain adequate., Patient/ family verbilizes understanding of procedure., Procedure tolerated without complication., Recovers from procedure without complications.. 11:05:29 Patient received from Med II to IR Alert and oriented. Tansferred to table in Supine position. 11:05:32 Correct patient and procedure confirmed by team. 11:05:34 Signed procedure consent form obtained from patient. 11:05:36 ECG and BP/O2 sat monitors applied to patient. 11:05:41 Full Disclosure recording started 11:05:42 - 11:05:45 H&P Date Dictated: 10/10/2018 Within 30 days and on chart.. 11:05:46 Pre-procedure instructions explained to patient. 11:05:47 Pre-op teaching completed and patient verbalized understanding. 11:05:54 Use device set IR Diagnostic 11:05:56 Sterile Angiographic Pack opened to sterile field. 11:05:58 Bag Decanter (2002S) opened to sterile field. 11:05:59 Tegaderm 4 x 4 (1626W) opened to sterile field. 11:10:14 Family unavailable. 11:10:34 Patient allergic to Penicillins 11:10:37 Is the patient allergic to Iodine/contrast media? No. 11:10:38 Is patient on blood thinner?No 11:10:48 Patient diabetic? Yes. 11:10:51 If diabetic: On Metformin? No 11:10:52 - 11:10:53 ----Pre-sedation anethsthesia assessment.---- 11:10:56 Previous problem with sedation/anesthesia? No ? 11:11:00 Snore? Yes 11:11:03 Sleep apnea? No 11:11:07 Deviated septum? No 11:11:09 Opens mouth fully? Yes 11:11:13 Sticks out tongue? Yes 11:11:16 Airway obstruction? No ? 11:11:32 Dentures? Yes out 11:11:38 Patient pain scale 0/10 no. 11:11:44 IV patent on arrival in right hand with 0.9% NaCl at [facility]. 11:20:45 Vital chart was started 11:20:48 Baseline sample Acquired. 11:30:13 Lidocaine 1% 20ml vial added to field was administered by Giovanni saul MD; used for procedure; 11:30:27 Heparin Flush Bag (1000units/500ml NS) 1 bags added to field was administered by Giovanni Tamayo MD; used for procedure; 11:53:26 Right groin area was prepped with chlora-prep and draped in sterile fashion 11:53:28 Alarms reviewed by R. N. 11:53:28 Sharps counted by scrub and verified by R.N. 11:53:30 Physician arrived 11:53:30 --------ALL STOP TIME OUT------ 11:53:31 Final Timeout: patient, procedure, and site verified with staff and physician. All members of the team are in agreement. 11:53:37 Right groin site verified by team. 11:53:42 Fire Safety Assessment: A--An alcohol-based skin anteseptic being used preoperatively., C--Open oxygen or nitrous oxide is being used. 11:53:50 Sedation plan: Local Anesthetic Medication:Lidocaine 11:54:41 Maximum allowable Isovue 300 dose 300ml. Physician notified. (300ml for normal creatinines. For patients with creatinine of 1.7 or higher multiply weight(kg) x 5 divided by creatinine.) 11:55:22 Procedure started. 11:55:24 BAG, DRAINAGE EMPTY 600ML W/TATIANA ([id number]) opened to sterile field. 12:06:58 Tegaderm 6 x 8 (1628) opened to sterile field. 12:10:41 Procedure ended.(Physican Out) 12:11:19 Fluoroscopy time 00.30 minutes. 12:11:21 Fluoroscopy dose: 2 mGy 12:11:21 Flurop Dose total: 2 12:11:29 Sharps counted by scrub and verified by R.N. 12:11:37 Contrast amount:Isovue 300 5ml. 12:11:39 Insertion/operative site no bleeding no hematoma. 12:11:46 Post-op/insertion site Right groin dressed using a 4 x 4,statlock and tegaderm. 12:12:29 Procedure and supply charges have been captured, reviewed, submitted an d are correct. 12:13:52 Fentanyl 25 mcg I.V. was administered by Blanca Shore RN; for sedation; 12:15:02 Report given to Med II. 12:15:05 Patient transfered to Med II with Bed. 12:15:33 Vital chart was stopped Device Usage Item Name Manufacture Quantity Catalog Hospital Part Current Minimal Lot# / Number Charge Number Stock Stock Serial# Code Sterile Cardinal 1 [id number] 5 Angiographic Health Pack Bag Decanter Microtek 1 2002S [id number] 5 (2002S) Medical Inc. Tegaderm 4 x 3M 1 1626W [id number] [id number] [id number] 5 4 (1626W) BAG, Merit 1 [id number] [id number] [id number] 5 DRAINAGE Medical EMPTY 600ML W/TATIANA ([id number]) Tegaderm 6 x 3M 1 1628 [id number] 5 8 (1628) Signature Audit [place] Stage Time Signature Unsigned Intra-Procedure 10/10/2018 Pratik 12:15:28 PM Eduar RT (R) (CV) Signatures Monitor : Pratik Signature : Eduar RT Date : Time : [facility] [address] [place] [address]
[~2018-09-14 20:23] MED LIST changes: +CIPRO500 MG PO; +LEVEMIR IN100 UNITS/ SC
[2018-09-14 20:41] LABS: BASOPHILS 0.5 % (0-2); EOSINOPHILS 2.7 % (0-7); HEMATOCRIT 34.1 % (42.0-54.0); HEMOGLOBIN 11.7 g/dL (13.5-17.5); IMMATURE GRANULOCYTES 0.2 % (0-5); LYMPHOCYTES 34.9 % (15-50); MCH 29.6 pg (26.0-34.0); MCHC 34.3 g/dL (31.0-37.0); MCV 86.3 fL (80.0-100.0); MEAN PLATELET VOLUME 8.1 fL (7.4-10.4); MONOCYTES 7.3 % (2-11); NEUTROPHILS 54.4 % (40-80); RBC 3.95 10x6/uL (4.20-6.10); RDW 14.5 % (11.5-14.5); WBC 6.6 10x3/uL (4.8-10.8)
[2018-09-14 20:49] LABS: PLATELET COUNT 258 10x3/uL (130-400)
[2018-09-14 20:58] LABS: APTT 25.4 SECONDS (22.8-39.4); PROTIME 12.7 SECONDS (11.6-15.0)
[2018-09-14 21:18] LABS: ALBUMIN 1.1 g/dL (3.4-5.0); ALKALINE PHOSPHATASE 92 U/L (46-116); ALT (SGPT) 19 U/L (10-68); CALC OSMOLALITY 285 mosm/kg (275-300); CALCIUM 7.5 mg/dL (8.5-10.1); CARBON DIOXIDE 20.2 mmol/L (21.0-32.0); CHLORIDE - SERUM 110 mmol/L (98-107); CREATININE - SERUM 1.3 mg/dL (0.6-1.3); GLUCOSE 193 mg/dL (74-106); PROTEIN - SERUM 5.2 g/dL (6.4-8.2); SODIUM 140 mmol/L (136-145); UREA NITROGEN 19 mg/dL (7-18); eGFR NON AFRICAN AMERICAN 59 mL/min (90-120)
[2018-09-14 21:19] LABS: BILIRUBIN - TOTAL 0.08 mg/dL (0.2-1.3)
[2018-09-14 21:34] LABS: AMYLASE - SERUM 31 U/L (25-115); CKMB 2.7 U/L (0.0-3.6); CREATINE KINASE 481 UL (21-232); LIPASE 65 U/L (73-393)
[2018-09-14 21:35] LABS: TROPONIN-I < 0.017 ng/mL (0.000-0.060)
[2018-09-14 22:02] LABS: APPEARANCE CLEAR (CLEAR); BILIRUBIN NEGATIVE (NEGATIVE); COLOR YELLOW (YELLOW); GLUCOSE 100 mg/dL (NEGATIVE); KETONE NEGATIVE (NEGATIVE); NITRITE NEGATIVE (NEGATIVE); PROTEIN 3+ mg/dL (NEGATIVE); UROBILINOGEN NORMAL (NORMAL)
[2018-09-14 22:03] LABS: BACTERIA FEW /hpf (NONE SEEN); EPITHELIAL CELLS NSEEN /hpf (0-5); RED CELLS - URINE 0-5 /hpf (0-5); WHITE CELLS - URINE 0-5 /hpf (0-5)
--- NOTE | 2018-09-15 01:50 | NUR ---
RECIEVED TO ROOM 2111 FROM ER VIA . PT A&O. RESPERATIONS EVEN ON RA. IV TO [facility], SITE CLEAN AND DRY. ABD DISTENDED BUT SOFT. 2+ PITTING EDMA NOTED TO BILATERAL LOWER EXTREMITIES. PT STATES THAT HE USUALLY TAKES LASIX AT HOME BUT THOUGHT THAT HE WAS TAKING TOO MUCH AND HASNT TAKEN IT IN A WHILE. RIGHT GREAT TOE AMPUTEE. PT CURRENTLY MICHELLE PAIN OR NEEDS. HISTORY AND MED REC OBTAINED. BED LOW, CL IN REACH.
[2018-09-15] MEDS ORDERED: MAGNESIUM OXID250 MG PO (01:53)
[2018-09-15 04:00] VITALS: BP 153/81
[2018-09-15 04:47] VITALS: BP 153/81; BMI 28.8
[2018-09-15 07:46] VITALS: BP 147/78
--- NOTE | 2018-09-15 09:52 | NUR ---
PT LAYING FLAT IN BED ALERT AND ORIENTED. PT DENIES AND NEEDS OR PAIN AT THIS TIME. BED LOW CALL LIGHT WITHIN REACH. WILL CONTINUE TO MONITOR.
[2018-09-15 10:22] VITALS: BMI 28.7
[2018-09-15 11:33] VITALS: BP 146/76
[2018-09-15 13:33] LABS: COMPLEMENT C4 29.9 mg/dL (17.4-52.2)
[2018-09-15 13:35] VITALS: BMI 28.7
[2018-09-15 13:37] LABS: T4 THYROXIN - FREE 0.91 ng/dL (0.76-1.46); THYROID STIMULATING HORMONE 6.75 uIU/mL (0.36-3.74)
[2018-09-15 15:10] VITALS: BP 148/69
--- NOTE | 2018-09-15 15:11 | NUR ---
OFFERED SCDS. PT REFUSED.
[2018-09-15 15:58] LABS: CREATININE - URINE 83.5 mg/dL (30-125)
[2018-09-15 16:30] LABS: PROTEIN - URINE 4955.8 mg/dL (0.0-11.9)
--- NOTE | 2018-09-15 19:27 | NUR ---
PT IN BED. PROVIDED BLACK COFFEE PER REQUEST. EDUCATED PT ON 24HR URINE COLLECTION. PT BVERBALIZED UNDERSTANDING. DENIES NEEDS AT THIS TIME.
[2018-09-15 20:00] VITALS: BP 142/60
[2018-09-16 00:30] VITALS: BP 148/69
[2018-09-16 04:25] VITALS: BP 137/56
[2018-09-16 04:52] LABS: BASOPHILS 0.5 % (0-2); EOSINOPHILS 4.7 % (0-7); HEMOGLOBIN 10.7 g/dL (13.5-17.5); IMMATURE GRANULOCYTES 0.2 % (0-5); MCH 29.5 pg (26.0-34.0); MCHC 34.5 g/dL (31.0-37.0); MCV 85.4 fL (80.0-100.0); MONOCYTES 10.4 % (2-11); NEUTROPHILS 47.2 % (40-80); PLATELET COUNT 243 10x3/uL (130-400); RBC 3.63 10x6/uL (4.20-6.10); WBC 5.6 10x3/uL (4.8-10.8)
[2018-09-16 05:34] LABS: ALBUMIN 0.9 g/dL (3.4-5.0); ALKALINE PHOSPHATASE 79 U/L (46-116); BILIRUBIN - TOTAL 0.14 mg/dL (0.2-1.3); CALCIUM 7.5 mg/dL (8.5-10.1); CARBON DIOXIDE 23.9 mmol/L (21.0-32.0); CHLORIDE - SERUM 111 mmol/L (98-107); PHOSPHOROUS 3.7 mg/dL (2.5-4.9); POTASSIUM - SERUM 3.4 mmol/L (3.5-5.1); PROTEIN - SERUM 4.6 g/dL (6.4-8.2); SODIUM 142 mmol/L (136-145); UREA NITROGEN 17 mg/dL (7-18); eGFR NON AFRICAN AMERICAN 80 mL/min (90-120)
[2018-09-16 05:36] LABS: ALT (SGPT) 14 U/L (10-68); CALC OSMOLALITY 285 mosm/kg (275-300); GLUCOSE 109 mg/dL (74-106)
--- NOTE | 2018-09-16 07:00 | NUR ---
RECEIVED REPORT. ASSUMED CARE OF PATIENT. PATIENT RESTING IN BED WITH EYES OPEN. REPORTS NO BOWEL MOVEMENT FOR 2 DAYS. ABD DISTENDED. PATIENT REPORTS DISCOMFORT TO ABDOMEN. CALL LIGHT WITHIN REACH. NO DISTRESS.
[2018-09-16 08:53] VITALS: BP 141/68
--- NOTE | 2018-09-16 10:00 | NUR ---
PATIENT AMBULATING IN HALLWAY. NO DISTRESS.
--- NOTE | 2018-09-16 12:14 | NUR ---
SITTING AT BEDSIDE CONSUMING NOON MEAL. NO DISTRESS.
--- NOTE | 2018-09-16 12:26 | NUR ---
ICE REPLACED ON 24 HOUR URINE COLLECTION.
[2018-09-16 13:11] VITALS: BP 151/65
[2018-09-16 16:45] VITALS: BP 140/59
[2018-09-16 18:06] LABS: HEPATITIS C ANTIBODY <0.1 S/CO RAT (0.0-0.9)
--- NOTE | 2018-09-16 18:22 | NUR ---
PATIENT LYING IN BED WITH ATTENTION TOWARD TELEVISION. NO DISTRESS. CALL LIGHT WITHIN REACH.
--- NOTE | 2018-09-16 19:25 | NUR ---
PT IN BED RESTING WITH EYES CLOSED. EVEN AND UNALBORED RESPIRATIONS NOTED AT TIHS TIME.
[2018-09-16 20:00] VITALS: BP 153/71
[2018-09-17 00:30] VITALS: BP 129/54
[2018-09-17 04:30] VITALS: BP 132/60
--- NOTE | 2018-09-17 07:00 | NUR ---
RECEIVED REPORT. ASSUMED CARE OF PATIENT. PATIENT RESTING ON LEFT LATERAL SIDE WITHE EYES CLOSED. RESP EVEN AND UNLABORED. NO DISTRESS. CALL LIGHT WITHIN REACH.
[2018-09-17 08:07] VITALS: BP 146/73
[2018-09-17 10:31] LABS: BASOPHILS 0.3 % (0-2); EOSINOPHILS 3.1 % (0-7); HEMATOCRIT 33.1 % (42.0-54.0); HEMOGLOBIN 11.6 g/dL (13.5-17.5); IMMATURE GRANULOCYTES 0.2 % (0-5); MCH 29.9 pg (26.0-34.0); MCV 85.3 fL (80.0-100.0); MEAN PLATELET VOLUME 8.1 fL (7.4-10.4); MONOCYTES 5.9 % (2-11); NEUTROPHILS 61.5 % (40-80); PLATELET COUNT 257 10x3/uL (130-400); RBC 3.88 10x6/uL (4.20-6.10); WBC 5.7 10x3/uL (4.8-10.8)
[2018-09-17 10:42] LABS: % SATURATION 46 % (15-55); IRON 59 ug/dl (35-150); TOTAL IRON BIND CAPACITY 127 ug/dl (260-445); UNSAT IRON BIND CAPACITY 68 ug/dl (150-375)
[2018-09-17 10:58] LABS: ANION GAP 6.9 mmol/L (8-16); BILIRUBIN - TOTAL 0.11 mg/dL (0.2-1.3); CALCIUM 7.4 mg/dL (8.5-10.1); CARBON DIOXIDE 27.7 mmol/L (21.0-32.0); CREATININE - SERUM 1.1 mg/dL (0.6-1.3); POTASSIUM - SERUM 3.6 mmol/L (3.5-5.1); PROTEIN - SERUM 5.1 g/dL (6.4-8.2)
--- NOTE | 2018-09-17 11:15 | NUR ---
SITTING TO SIDE OF BED. BETAPACE INITIATED AT THIS TIME. NO DISTRESS. CALL LIGHT WITHIN REACH.
[2018-09-17 11:24] LABS: PROTEIN - URINE 1471.8 mg/dL (0.0-11.9)
[2018-09-17 11:47] VITALS: BP 134/77
--- NOTE | 2018-09-17 14:00 | NUR ---
PATIENT LYING IN BED WITH ATTENTION TOWARD TELEVISION. HOT CHOCOLATE PROVIDED UPON REQUEST. CALL LIGHT WITHIN REACH. NO DISTRESS.
[2018-09-17 15:42] VITALS: BP 135/66
--- NOTE | 2018-09-17 16:45 | NUR ---
SPOKE WITH ABOUT THE ORDERS TO D/C THE BIOPSIES WITH IR AND INFORMED HIM THERE WERE 2 BIOPSIES, ONE FOR THE KIDNEY AND ONE FOR THE LYMPH NODE. STATES GO AHEAD AND DO THE BIOPSY RENAL ORDERED ON THE KIDNEY.
--- NOTE | 2018-09-17 17:15 | NUR ---
AT BEDSIDE FOR ROUNDS. RECIEVED ORDER TO RESTART PRIMIDONE FOR TREMORS. ORDER INPUTTED INTO SYSTEM
--- NOTE | 2018-09-17 17:42 | NUR ---
CONSENTS SIGNED AND ON THE CHART FOR INGUINAL LYMPH NODE BIOPSY ON 09/18/18
--- NOTE | 2018-09-17 19:50 | NUR ---
PT LAYING IN BED ALERT AND ORIENTED X4. LAYING IN BED WATCHING TV. PT DENIES ANY PAIN OR NEEDS AT THIS TIME. VITALS STABLE. PT DENIES ANY PAIN OR NEEDS AT THIS TIME. BED LOW CALL LIGHT WITHIN REACH. WILL CONTINUE TO MONITOR.
[2018-09-17 20:00] VITALS: BP 146/67
--- NOTE | 2018-09-17 20:54 | NUR ---
CALLED TEJAL MARIEE TO PULL NEW MED MYSOLINE.
[2018-09-18] VITALS: BP 145/58
--- NOTE | 2018-09-18 01:55 | NUR ---
PT RESING IN BED ALERT AND ORIENTED X4. PT DENIES ANY NEEDS OR PAIN AT THIS TIME. VITALS STABLE. BED LOW CALL LIGHT WITHIN REACH. WILL CONTINUE TO MONITOR.
--- NOTE | 2018-09-18 02:59 | NUR ---
I have reviewed this patient and I concur with the Shift Assessment completed by the Licensed Practical Nurse today this shift.
[2018-09-18 04:00] VITALS: BP 158/70
[2018-09-18 04:46] LABS: BASOPHILS 0.4 % (0-2); EOSINOPHILS 3.3 % (0-7); HEMATOCRIT 32.7 % (42.0-54.0); HEMOGLOBIN 11.3 g/dL (13.5-17.5); IMMATURE GRANULOCYTES 0.1 % (0-5); LYMPHOCYTES 35.1 % (15-50); MCH 29.7 pg (26.0-34.0); MCHC 34.6 g/dL (31.0-37.0); MCV 86.1 fL (80.0-100.0); MEAN PLATELET VOLUME 8.2 fL (7.4-10.4); MONOCYTES 10.4 % (2-11); NEUTROPHILS 50.7 % (40-80); PLATELET COUNT 266 10x3/uL (130-400); RDW 14.3 % (11.5-14.5); WBC 6.7 10x3/uL (4.8-10.8)
[2018-09-18 04:54] LABS: INR 0.96 (0.85-1.17); PROTIME 12.3 SECONDS (11.6-15.0)
[2018-09-18 05:05] LABS: ANION GAP 6.7 mmol/L (8-16); BILIRUBIN - TOTAL 0.13 mg/dL (0.2-1.3); CALCIUM 7.6 mg/dL (8.5-10.1); CARBON DIOXIDE 27.5 mmol/L (21.0-32.0); CREATININE - SERUM 1.2 mg/dL (0.6-1.3); POTASSIUM - SERUM 3.2 mmol/L (3.5-5.1); PROTEIN - SERUM 5.1 g/dL (6.4-8.2)
[2018-09-18 08:01] VITALS: BP 133/68
--- NOTE | 2018-09-18 09:09 | NUR ---
PATIENT SIGNED CONSENTS AND WILL BE GOING TO ULTRASOUND AND TO HAVE BIOPSY THIS MORNING. HE HAS BEEN NOP SINCE MIDNIGHT. WILL HOLD THE METFORMIN AND GIVE HIS OTHER MORNING MEDICATIONS WITH A SIP OF WATER. PATIENT IS AWAKE AND ALERT. DENIES ANY OTHER NEEDS AT THIS TIME.
[2018-09-18 11:35] VITALS: BP 156/71
--- NOTE | 2018-09-18 13:43 | NUR ---
PATIENT HAS BEEN PREOPED AND IS GOING TO IR. TELEMETRY IS OFF , HE IS WEARING A GOWN AND HAS BEEN NPO SINCE MIDNIGHT. CONSENTS ARE SIGNED AND IN THE CHART. EKG HAS BEEN DONE.
--- NOTE | 2018-09-18 16:21 | NUR ---
PATIENT HAS RETURNED FROM IR, HIS VITAL SIGNS ARE STABLE. B/P IS 142/68 HIS TEMP IS 97.2, HEART RATE IS 96 AND RESPIRATIONS ARE 16. HE IS VERY LETHARGIC AT THIS TIME. CONNECTED TELEMETRY BACK UP. HE HAS A INCISION ON HIS RIGHT GROIN AND HAD A BIOPSY TAKEN. HE REPORTS THAT IT HURT MORE THEN HE THOUGH IT WOULD BUT DENIES ANY NEEDS AT THIS TIME. THERE ARE 6 STERI STRIPS OVER THE INCISION SITE AND IT IS CLEAN DRY AND INTACT. THERE IS A IRON DRAIN IN PLACE AND HAS 20 ML OF SEROSANGUNINOUS FLUID IN IT. PATIENT IS RESTING QUIETLY AT THIS TIME.
--- NOTE | 2018-09-18 16:42 | NUR ---
I have reviewed this patient and I concur with the Shift Assessment completed by the Licensed Practical Nurse today this shift.
--- NOTE | 2018-09-18 17:24 | OP ---
PATIENT NAME: CAROLE MCKENNA MEDICAL RECORD: [id number] :57 LOCATION:D.M2 D.2112 ADMISSION DATE:09/15/18 SURGEON: LEATHA COCHRAN MD DATE OF OPERATION: 09/18/2018 SURGEON: Leatha Cochran MD (JJ) PREOPERATIVE DIAGNOSIS: Inguinal lymphadenopathy. POSTOPERATIVE DIAGNOSIS: Inguinal lymphadenopathy. PROCEDURE PERFORMED: Right inguinal superficial lymph node excisional biopsy. ANESTHESIA: General. COMPLICATIONS: None. SPECIMENS: Superficial right inguinal lymph node. Case was clean. COMPLICATIONS: None. ESTIMATED BLOOD LOSS: 20 cc. OPERATIVE COURSE: After consent was obtained, the patient was taken to the operating room and placed in the supine position on the operating table. Next, general anesthesia was given. The right groin was prepped and draped in typical sterile fashion. A 10 cc of local anesthetic was injected just above the palpable lymphadenopathy. A curvilinear incision was made with a #10 blade scalpel. Dissection was continued with electrocautery. A self-retaining retractor was placed. Circumferential dissection of the lymph node was performed. The lymphatic vessels were clipped using a clip deicer inspector pneumatic. This continued until the lymph node was circumferentially dissected in its entirety. The lymph node was approximately 8 mm in length, 4 mm in width, and 4 mm in height. It was sent for permanent pathology. The operative field was copiously irrigated. Careful attention was paid to hemostasis using electrocautery. The wound bed was copiously irrigated. A 10-Azeri J-P drain was placed in the surgical field. The wound was closed in multiple layers. Deep subcutaneous tissue was closed with 3-0 Vicryl suture. Skin was closed with 4-0 Stratafix. At the end of the case, all needle and instrument counts were correct. No complications occurred. The patient was extubated and transferred to PACU in stable condition. TRANSINT:[id number] Voice Confirmation ID: [id number] DOCUMENT ID: [id number] OPERATIVE REPORT [id number] CAROLE MCKENNA LEATHA MCELROY MD at 1725 CC: [id number] DICTATION DATE: 09/18/18 1522 EMERGENCY ROOM SPECIALIST: 09/18/18 1719 [place] [address]
[2018-09-18 20:00] VITALS: BP 151/73
[2018-09-19] VITALS: BP 141/73
[2018-09-19 04:00] VITALS: BP 126/60
--- NOTE | 2018-09-19 04:45 | NUR ---
IRON DRAIN EMPTIED. 80ML OF SEROUS DRAINAGE COLLECTED. AMOUNT DOCUMENTED IN I&O. IRON DRAIN BULB SQUEEZED FLAT TO CREATE SUCTION. PATIENT HAS NO COMPLAINTS AT THIS TIME. NO DISTRESS NOTED.
--- NOTE | 2018-09-19 05:25 | NUR ---
I have reviewed this patient and I concur with the Shift Assessment completed by the Licensed Practical Nurse today this shift.
[2018-09-19 05:47] LABS: BASOPHILS 0.4 % (0-2); EOSINOPHILS 0.6 % (0-7); HEMATOCRIT 30.4 % (42.0-54.0); HEMOGLOBIN 10.8 g/dL (13.5-17.5); IMMATURE GRANULOCYTES 0.1 % (0-5); LYMPHOCYTES 23.5 % (15-50); MCH 30.2 pg (26.0-34.0); MCHC 35.5 g/dL (31.0-37.0); MCV 84.9 fL (80.0-100.0); MEAN PLATELET VOLUME 8.2 fL (7.4-10.4); MONOCYTES 6.7 % (2-11); NEUTROPHILS 68.7 % (40-80); PLATELET COUNT 236 10x3/uL (130-400); RBC 3.58 10x6/uL (4.20-6.10); RDW 14.3 % (11.5-14.5)
[2018-09-19 06:24] LABS: ALKALINE PHOSPHATASE 78 U/L (46-116); ALT (SGPT) 13 U/L (10-68); BILIRUBIN - TOTAL 0.27 mg/dL (0.2-1.3); CALCIUM 7.5 mg/dL (8.5-10.1); CARBON DIOXIDE 22.3 mmol/L (21.0-32.0); CHLORIDE - SERUM 109 mmol/L (98-107); POTASSIUM - SERUM 3.5 mmol/L (3.5-5.1); PROTEIN - SERUM 5.1 g/dL (6.4-8.2); SODIUM 142 mmol/L (136-145); UREA NITROGEN 24 mg/dL (7-18); eGFR NON AFRICAN AMERICAN 80 mL/min (90-120)
[2018-09-19 06:27] LABS: ALBUMIN 1.5 g/dL (3.4-5.0); CALC OSMOLALITY 289 mosm/kg (275-300); GLUCOSE 150 mg/dL (74-106)
--- NOTE | 2018-09-19 06:34 | NUR ---
PATIENT TOOK MEDICATIONS WITHOUT DIFFICULTY. NO COMPLAINTS AT THIS TIME. NO DISTRESS NOTED.
--- NOTE | 2018-09-19 06:40 | NUR ---
IRON DRAIN EMPTIED. 90 ML OF SEROUS FLUID COLLECTED. DOCUMENTED IN I&O. IRON DRAIN SQUEEZED FLAT TO CREATE A SUCTION. PATIENT HAS NO COMPLAINTS AT THIS TIME. NO DISTRESS NOTED.
[2018-09-19 08:01] VITALS: BP 119/65
[2018-09-19 09:13] LABS: ANTI-GLOMERULAR BASMENT MEMBRN 13 units (0-20)
[2018-09-19 10:27] LABS: INR 1.01 (0.85-1.17); PROTIME 13.2 SECONDS (11.6-15.0)
[2018-09-19 13:11] LABS: UPE RAND - ALBUMIN 59.5 % (()); UPE RAND - ALPHA 1 GLOBULIN 6.3 % (()); UPE RAND - GAMMA GLOBULIN 12.2 % (())
--- NOTE | 2018-09-19 16:02 | MORECARE ---
CASE MANAGEMENT DISCHARGE SUMMARY PATIENT: CAROLE MCKENNA UNIT: [id number] ADM DATE: 09/15/18 AGE: 63 : 57 SEX: M ROOM/BED: D.2112 AUTHOR: MEGHAN SMALL PHYSICIAN: REFERRING PHYSICIAN: GILLIAN WILSON MD DATE OF SERVICE: 09/19/18 Discharge Plan Patient Name: CAROLE MCKENNA [facility] : 1955 Planned Disposition: Home Anticipated Discharge Date: 09/20/18 Discharge Date: Expected LOS: 5 Initial Reviewer: [email or web address] Initial Review Date: 09/15/2018 Generated: 09/19/18 5:02 pm DCPIA - Discharge Planning Initial Assessment Updated by [email or web address]: Javier Vincent on 09/19/18 4:02 pm * Is the patient Alert and Oriented? Yes * How many steps to enter\exit or inside your home? NONE * PCP DR[facility] ELLE MORALES IN [facility] * Pharmacy [facility] IN [facility] * Preadmission Environment Homeless * Other Environment LIVING IN CAR * Facility Name NONE * ADLs Independent * Equipment Cane * Other Equipment NO MEDICAL EQUIPMENT PROVIDER PREFERENCE * List name and contact numbers for known caregivers / representatives who currently or will assist patient after discharge: LAYLA MITCHELL, SISTER, * Verbal permission to speak to the caregivers and representatives has been obtained from the patient. N/A * Community resources currently utilized None * Please name any agencies selected above. NONE * Additional services required to return to the preadmission environment? No * Can the patient safely return to the preadmission environment? Yes * Has this patient been hospitalized within the prior 30 days at any hospital? No Patient Name: CAROLE MCKENNA Page [phone] at 1602 All edits/amendments must be made on the electronic document DICTATION DATE: 09/19/181601 MANAGER PET: ALEJANDRA 09/19/18 160 RPT#: [id number] DC DATE: STATUS: ADM IN [facility] [address] [phone] END OF REPORT
[2018-09-19 16:08] VITALS: BP 138/63
[2018-09-19 16:09] LABS: ANCA - ANTIMYELOPEROXIDASE <9.0 U/mL (0.0-9.0); ANCA - ANTIPROTEINASE 3 <3.5 U/mL (0.0-3.5); ANCA - ATYPICAL <1:20 titer (Neg:<1:20); ANCA - CYTOPLASMIC <1:20 titer (Neg:<1:20); ANCA - PERINUCLEAR <1:20 titer (Neg:<1:20)
--- NOTE | 2018-09-19 16:12 | MORECARE ---
CASE MANAGEMENT DISCHARGE SUMMARY PATIENT: CAROLE MCKENNA UNIT: [id number] ADM DATE: 09/15/18 AGE: 63 : 57 SEX: M ROOM/BED: D.2028 AUTHOR: MEGHAN SMALL PHYSICIAN: REFERRING PHYSICIAN: GILLIAN WILSON MD DATE OF SERVICE: 09/19/18 Discharge Plan Patient Name: CAROLE MCKENNA Facility: [facility]:[place] : 1955 Planned Disposition: Home Anticipated Discharge Date: 09/20/18 Discharge Date: Expected LOS: 5 Initial Reviewer: [email or web address] Initial Review Date: 09/15/2018 Generated: 09/19/18 5:11 pm Comments DCP- Discharge Planning Updated by [email or web address]: Javier Vincent on 09/19/18 3:[address] Patient Name: CAROLE MCKENNA Admission Status: ER Accout number: [id number] Admission Date: 09-15-2018 : 1955 Admission Diagnosis:EDEMA, UNSPECIFIED Attending: SINTIA WILSON Current LOS: 4 Anticipated DC Date: 09-20-2018 Planned Disposition: Home Primary Insurance: MEDICARE A & B Discharge Planning Comments: CM MET WITH PT IN ROOM TO DISCUSS DISCHARGE PLANNING AND NEEDS. PT REPORTS BEING HOMELESS AND LIVING IN HIS CAR, INDEPENDENTLY AND ALONE. PT HAS A CANE WITH NO MEDICAL EQUIPMENT PROVIDER PREFERENCE. PT HAS NO OUTSIDE SERVICES ASSISTING IN THE HOME. CM DISCUSSED AVAILABILITY OF HOME HEALTH, REHAB SERVICES AND MEDICAL EQUIPMENT. PT DENIES DISCHARGE NEEDS, REPORTS HIS CAR IS IN THE PARKING LOT FOR DISCHARGE PT DROVE HIMSELF TO THE HOSPITAL. PT IS SAVING TO RENT A PLACE IN THE FUTURE AND THINKS THAT $400 FOR SUBSUDIZED APARTMENT WITH GOVERNMENT HOUSING IS "TOO MUCH TO PAY". PT REPORTS BEING ON THE GOVERNMENT HOUSING WAITING LIST. PT BUYS BOTTLED WATER AND USES [facility] FOR SHOWER AND BATHROOM. PT DENIES DISCHARGE NEEDS AT THIS TIME. PT IS DISCHARGING HOMELESS AND LIVES IN HIS CARE, DENIES DISCHARGE NEEDS AT THIS TIME. CM TO FOLLOW AND ASSIST IF NEEDED. Fresh Food Manager: Jvaier Vincent DCPIA - Discharge Planning Initial Assessment Updated by [id number]: Javier Vincent on 09/19/18 4:02 pm * Is the patient Alert and Oriented? Yes * How many steps to enter\\exit or inside your home? NONE * PCP DR[facility] ELLE MORALES IN [facility] * Pharmacy [facility] * Preadmission Environment Homeless * Other Environment LIVING IN CAR * Facility Name NONE * ADLs Independent * Equipment Cane * Other Equipment NO MEDICAL EQUIPMENT PROVIDER PREFERENCE * List name and contact numbers for known caregivers / representatives who currently or will assist patient after discharge: LAYLA MITCHELL, SISTER, * Verbal permission to speak to the caregivers and representatives has been obtained from the patient. N/A * Community resources currently utilized None * Please name any agencies selected above. NONE * Additional services required to return to the preadmission environment? No * Can the patient safely return to the preadmission environment? Yes * Has this patient been hospitalized within the prior 30 days at any hospital? No Last DP export: 09/19/18 3:02 p Patient Name: CAROLE MCKENNA Page [phone] at 1612 All edits/amendments must be made on the electronic document DICTATION DATE: 09/19/18 161 SERVER CASHIER: ALEJANDRA 09/19/18 161 RPT#: [id number] DC DATE: STATUS: ADM IN [facility] [address] [place] [address] END OF REPORT
--- NOTE | 2018-09-19 19:52 | NUR ---
PATIENTS EYES CLOSED, CHEST RISING AND FALLING. EASY TO AROUSE. NO DISTRESS NOTED.
[2018-09-19 20:00] VITALS: BP 129/61
--- NOTE | 2018-09-19 22:20 | NUR ---
IV TO RIGHT WRIST INFILTRATED. IV REMOVED WITH TIP INTACT. IV FLUIDS PAUSED. NEW 20G IV TO RIGHT FOREARM INSERTED FIRST ATTEMPT. IV FLUIDS RESTARTED WITH NO COMPLAINTS OR INFILTRATION.
[2018-09-20 00:09] VITALS: BP 117/54
--- NOTE | 2018-09-20 00:26 | NUR ---
PATIENT LAYING IN BED. EYES CLOSED, CHEST RISING AND FALLING. NO DISTRESS NOTED.
[2018-09-20 04:00] VITALS: BP 128/57
[2018-09-20 06:06] LABS: BASOPHILS 0.2 % (0-2); EOSINOPHILS 3.7 % (0-7); HEMATOCRIT 29.4 % (42.0-54.0); HEMOGLOBIN 10.2 g/dL (13.5-17.5); IMMATURE GRANULOCYTES 0.2 % (0-5); LYMPHOCYTES 31.9 % (15-50); MCH 29.7 pg (26.0-34.0); MCHC 34.7 g/dL (31.0-37.0); MCV 85.7 fL (80.0-100.0); MEAN PLATELET VOLUME 8.5 fL (7.4-10.4); MONOCYTES 9.3 % (2-11); NEUTROPHILS 54.7 % (40-80); PLATELET COUNT 242 10x3/uL (130-400); RBC 3.43 10x6/uL (4.20-6.10); RDW 14.3 % (11.5-14.5); WBC 5.6 10x3/uL (4.8-10.8)
[2018-09-20 06:18] LABS: ALBUMIN 1.8 g/dL (3.4-5.0); BILIRUBIN - TOTAL 0.22 mg/dL (0.2-1.3); CALCIUM 7.5 mg/dL (8.5-10.1); CREATININE - SERUM 1.2 mg/dL (0.6-1.3); PROTEIN - SERUM 5.1 g/dL (6.4-8.2)
--- NOTE | 2018-09-20 06:32 | NUR ---
PATIENT SITTING UP ON SIDE OF BED. NO COMPLAINTS AT THIS TIME. NO DISTRESS NOTED.
--- NOTE | 2018-09-20 07:41 | NUR ---
RESUMING PT CARE, PT LAYING IN BED ALERT AND ORIENTED X3, CALL LIGHT IN REACH, WILL CONTINUE TO MONITOR AND FOLLOW PLAN OF CARE.
[2018-09-20 08:48] VITALS: BP 139/68
[2018-09-20 10:16] LABS: FOLATE (FOLIC ACID) - SERUM 6.4 ng/mL (>3.0)
[2018-09-20 11:59] VITALS: BP 143/66
--- NOTE | 2018-09-20 12:40 | NUR ---
I have reviewed this patient and I concur with the Shift Assessment completed by the Licensed Practical Nurse today this shift.
[2018-09-20 16:17] VITALS: BP 138/64
[2018-09-20 17:08] LABS: SPE - A/G RATIO 0.5 (0.7-1.7); SPE - ALBUMIN 1.4 g/dL (2.9-4.4); SPE - ALPHA-1 GLOBULIN 0.2 g/dL (0.0-0.4); SPE - ALPHA-2 GLOBULIN 1.1 g/dL (0.4-1.0); SPE - GAMMA GLOBULIN 0.6 g/dL (0.4-1.8); SPE - M-SPIKE Not Observed g/dL (Not Observed); SPE - TOTAL PROTEIN 4.2 g/dL (6.0-8.5)
[2018-09-20 17:08] LABS: UPE - ALPHA 1 GLOBULIN 10.7 % (NOT ESTAB.); UPE - ALPHA 2 GLOBULIN 11.3 % (NOT ESTAB.); UPE - BETA GLOBULIN 21.6 % (NOT ESTAB.); UPE - GAMMA GLOBULIN 16.1 % (NOT ESTAB.)
[2018-09-20 20:00] VITALS: BP 136/63
--- NOTE | 2018-09-20 21:00 | NUR ---
IRON DRAIN EMPTIED. 100 ML OF SEROUS FLUID REMOVED. IRON DRAIN CLOSED WITH SUCTION.
--- NOTE | 2018-09-20 21:54 | NUR ---
PATIENT SITTING UP ON SIDE OF BED. NO COMPLAINTS AT THIS TIME. NO DISTRESS NOTED.
--- NOTE | 2018-09-20 22:15 | NUR ---
DRESSING TO RIGHT LOWER BACK REMOVED PER PHYSICIAN. AREA OF INCISION WITHOUT REDNESS, DRAINING OR SWELLING. BANDAGE TO RIGHT UPPER BACK REMOVED. AREA HAS SMALL SORE WITH SCAB. NO REDNESS, SWELLING OR DRAINING. PATIENT HAS NO COMPLAINTS AT THIS TIME. NO DISTRESS NOTED.
--- NOTE | 2018-09-20 22:48 | NUR ---
IRON DRAIN EMPTIED. 100 ML OF SEROUS FLUID COLLECTED. IRON DRAIN CLOSED WITH SUCTION.
--- NOTE | 2018-09-20 23:22 | NUR ---
IRON DRAIN EMPTIED. 70ML OF SEROUS FLUID COLLECTED. IRON DRAIN CLOSED WITH SUCTION.
[2018-09-21] VITALS: BP 133/64
--- NOTE | 2018-09-21 01:15 | NUR ---
IRON DRAIN EMPTIED. 100ML OF SEROUS FLUID COLLECTED. IRON DRAIN CLOSED WITH SUCTION.
[2018-09-21 04:00] VITALS: BP 143/78
--- NOTE | 2018-09-21 04:40 | NUR ---
PATIENT LAYING IN BED. EYES CLOSED, CHEST RISING AND FALLING. NO DISTRESS NOTED.
--- NOTE | 2018-09-21 05:36 | NUR ---
I have reviewed this patient and I concur with the Shift Assessment completed by the Licensed Practical Nurse today this shift.
[2018-09-21 06:22] LABS: BASOPHILS 0.2 % (0-2); EOSINOPHILS 3.8 % (0-7); HEMOGLOBIN 9.7 g/dL (13.5-17.5); IMMATURE GRANULOCYTES 0.2 % (0-5); LYMPHOCYTES 32.9 % (15-50); MCH 29.5 pg (26.0-34.0); MCHC 34.6 g/dL (31.0-37.0); MCV 85.1 fL (80.0-100.0); MEAN PLATELET VOLUME 8.6 fL (7.4-10.4); MONOCYTES 10.6 % (2-11); NEUTROPHILS 52.3 % (40-80); PLATELET COUNT 234 10x3/uL (130-400); RBC 3.29 10x6/uL (4.20-6.10); RDW 13.9 % (11.5-14.5); WBC 5.6 10x3/uL (4.8-10.8)
[2018-09-21 06:42] LABS: ANION GAP 10.9 mmol/L (8-16); BILIRUBIN - TOTAL 0.2 mg/dL (0.2-1.3); CALCIUM 7.2 mg/dL (8.5-10.1); CARBON DIOXIDE 25.9 mmol/L (21.0-32.0); CREATININE - SERUM 1.1 mg/dL (0.6-1.3); MAGNESIUM - SERUM 1.4 mg/dL (1.8-2.4); PHOSPHOROUS 3.7 mg/dL (2.5-4.9); PROTEIN - SERUM 5.2 g/dL (6.4-8.2)
[2018-09-21 06:52] LABS: POTASSIUM - SERUM 2.8 mmol/L (3.5-5.1)
[2018-09-21 07:50] VITALS: BP 158/67
[2018-09-21 10:15] LABS: ANA REFLEX - DIRECT Negative (Negative)
[2018-09-21 11:30] VITALS: BP 146/59
[2018-09-21 15:39] VITALS: BP 132/64
--- NOTE | 2018-09-21 17:22 | NUR ---
I have reviewed this patient and I concur with the Shift Assessment completed by the Licensed Practical Nurse today this shift.
--- NOTE | 2018-09-21 18:58 | NUR ---
IV IN RIGHT WRIST INFILTRATED, I REMOVED IT AND WILL ATTEMPT TO RESTART ANOTHER. CALL LIGHT IN REACH. WILL CONTINUE TO MONITOR.
[2018-09-21 20:00] VITALS: BP 165/85
--- NOTE | 2018-09-21 21:01 | NUR ---
STARTED IV WITH 20 GAUGE TO LEFT FOREARM TIMES ONE TRY AND COVERED WITYH OPSITE AND SECURED WITH TAPE
[2018-09-22] VITALS: BP 166/68
[2018-09-22 06:21] LABS: BASOPHILS 0.2 % (0-2); EOSINOPHILS 2.1 % (0-7); HEMATOCRIT 27.7 % (42.0-54.0); HEMOGLOBIN 9.8 g/dL (13.5-17.5); IMMATURE GRANULOCYTES 0.2 % (0-5); LYMPHOCYTES 23.9 % (15-50); MCH 29.9 pg (26.0-34.0); MCHC 35.4 g/dL (31.0-37.0); MCV 84.5 fL (80.0-100.0); MEAN PLATELET VOLUME 8.4 fL (7.4-10.4); NEUTROPHILS 65.6 % (40-80); PLATELET COUNT 218 10x3/uL (130-400); RBC 3.28 10x6/uL (4.20-6.10); RDW 13.5 % (11.5-14.5); WBC 5.6 10x3/uL (4.8-10.8)
[2018-09-22 06:46] LABS: ANION GAP 9.7 mmol/L (8-16); BILIRUBIN - TOTAL 0.24 mg/dL (0.2-1.3); CALCIUM 7.5 mg/dL (8.5-10.1); CARBON DIOXIDE 24.4 mmol/L (21.0-32.0); CREATININE - SERUM 1.3 mg/dL (0.6-1.3); POTASSIUM - SERUM 3.1 mmol/L (3.5-5.1); PROTEIN - SERUM 5.2 g/dL (6.4-8.2)
[2018-09-22 09:38] VITALS: BP 145/65
--- NOTE | 2018-09-22 12:26 | NUR ---
PT COMPLAING OF VOMITING AND DRY HEAVING. PT STATES, iT'S CLEAR WHEN IT COMES UP." PT SITTING ON SIDE OF BED EATING LUNCH AT THIS TIME. PT ALERT AND ORIENTED. VITALTS STABLE. BED LOW CALL LIGHT WITHIN REACH. WILL CONTINUE TO MONITOR.
[2018-09-22 12:43] VITALS: BP 136/71
--- NOTE | 2018-09-22 14:10 | NUR ---
Nutrition follow-up: Diet: ADA consistent CHO PO intake has been 100% of meals; however, pt is not feeling well today Labs reviewed Wt: 209# +BM RDN following.
--- NOTE | 2018-09-22 17:32 | NUR ---
PT STATES HE VOMITED AGIAN. PRN ZOFRAN GIVEN. WILL CONTINUE TO MONITOR.
[2018-09-22 17:57] VITALS: BP 137/68
--- NOTE | 2018-09-22 19:19 | NUR ---
CALLED DELL ABOUT N AND V. PRN ORDER PUT IN. SEE MAR. WILL CONTINUE TO MONITOR.
[2018-09-22 20:00] VITALS: BP 163/63
--- NOTE | 2018-09-22 20:05 | NUR ---
RESUMING PT CARE. PT IS ALERT LAYING IN BED. NO S/S OF DISTRESS NOTED. BED IN LOW POSITION WITH CALL LIGHT IN REACH. SIDE RAILS UP X 2. WILL CONTINUE TO MONITOR PT AND FOLLOW PLAN OF CARE.
[2018-09-23] VITALS: BP 142/64
--- NOTE | 2018-09-23 01:26 | NUR ---
I have reviewed this patient and I concur with the Shift Assessment completed by the Licensed Practical Nurse today this shift.
[2018-09-23 04:00] VITALS: BP 134/54
[2018-09-23 04:29] LABS: BASOPHILS 0.2 % (0-2); HEMATOCRIT 26.7 % (42.0-54.0); HEMOGLOBIN 9.2 g/dL (13.5-17.5); IMMATURE GRANULOCYTES 0.2 % (0-5); LYMPHOCYTES 37.7 % (15-50); MCH 29.3 pg (26.0-34.0); MCHC 34.5 g/dL (31.0-37.0); MEAN PLATELET VOLUME 8.4 fL (7.4-10.4); MONOCYTES 9.3 % (2-11); NEUTROPHILS 49.6 % (40-80); PLATELET COUNT 211 10x3/uL (130-400); RBC 3.14 10x6/uL (4.20-6.10); RDW 14.1 % (11.5-14.5)
[2018-09-23 04:48] LABS: ALBUMIN 2.2 g/dL (3.4-5.0); BILIRUBIN - TOTAL 0.21 mg/dL (0.2-1.3); CALCIUM 7.7 mg/dL (8.5-10.1); CARBON DIOXIDE 24.1 mmol/L (21.0-32.0); CREATININE - SERUM 1.4 mg/dL (0.6-1.3); POTASSIUM - SERUM 3.1 mmol/L (3.5-5.1); PROTEIN - SERUM 5.2 g/dL (6.4-8.2)
--- NOTE | 2018-09-23 07:30 | NUR ---
REPORT RECIEVED AND MORNING ROUNDING COMPLETE. PT LAYING IN BED ON RIGHT SIDE, EYES CLOSED AND BREATHING EVEN AND UNLABORED. PT IS SHOWING NO S/SX OF DISTRESS AT THIS TIME CALL LIGHT WITHIN REACH AND BED IN LOWEST POSITION.
[2018-09-23 08:54] VITALS: BP 140/62
[2018-09-23 11:41] VITALS: BP 146/65
--- NOTE | 2018-09-23 11:52 | NUR ---
I have reviewed this patient and I concur with the Shift Assessment completed by the Licensed Practical Nurse today this shift.
[2018-09-23 20:00] VITALS: BP 168/74
--- NOTE | 2018-09-23 21:55 | NUR ---
INITIAL ROUNDS COMPLETED AT 1910 HRS. PT DENIED ANY DISCOMFORT. ASSESSMENT COMPLETED AT 1954 HRS. VSS. PT ALERT AND ORIENTED TO PERSON, PLACE AND TIME. HARRELL. LUNGS CTA. ABD SOFT WITH ACTIVE BS NOTED. SUTURES COVERED WITH STERI STRIPS TO R GROIN AREA. SITE CLEAN AND SRY. IRON DRAIN TO R GROIN DRAINING CLEAR FLUID. 3+ BILAT PEDAL EDEMA NOTED. R GREAT TOE MISSING. SCAB NOTED TO BALL OF R FOOT. IV TO LFA INTACT. PM MEDS GIVEN. PT CURRENTLY RESTING WITH EYES CLOSED. RESP EVEN AND REGULAR. SR UP X2, CALL LIGHT WITHIN REACH.
[2018-09-24] VITALS: BP 160/71
--- NOTE | 2018-09-24 00:03 | NUR ---
PT WATCHING TV; NO DISTRESS NOTED. CALL LIGHT WITHIN REACH.
--- NOTE | 2018-09-24 02:10 | NUR ---
PT RESTING WITH EYES CLOSED. RESP EVEN AND REGULAR. SR UP X2,CALL LIGHT WITHIN REACH.
[2018-09-24 03:41] LABS: BASOPHILS 0.5 % (0-2); EOSINOPHILS 4.3 % (0-7); HEMATOCRIT 30.4 % (42.0-54.0); HEMOGLOBIN 10.5 g/dL (13.5-17.5); IMMATURE GRANULOCYTES 0.3 % (0-5); LYMPHOCYTES 34.3 % (15-50); MCH 29.3 pg (26.0-34.0); MCHC 34.5 g/dL (31.0-37.0); MCV 84.9 fL (80.0-100.0); MEAN PLATELET VOLUME 8.5 fL (7.4-10.4); MONOCYTES 9.6 % (2-11); PLATELET COUNT 228 10x3/uL (130-400); RBC 3.58 10x6/uL (4.20-6.10); RDW 13.9 % (11.5-14.5); WBC 6.2 10x3/uL (4.8-10.8)
[2018-09-24 04:00] VITALS: BP 158/70
[2018-09-24 04:01] LABS: ALBUMIN 1.8 g/dL (3.4-5.0); ANION GAP 12.3 mmol/L (8-16); BILIRUBIN - TOTAL 0.2 mg/dL (0.2-1.3); CALCIUM 7.5 mg/dL (8.5-10.1); CREATININE - SERUM 1.2 mg/dL (0.6-1.3); POTASSIUM - SERUM 3.3 mmol/L (3.5-5.1); PROTEIN - SERUM 5.1 g/dL (6.4-8.2)
--- NOTE | 2018-09-24 04:09 | NUR ---
PT RESTING WITH EYES CLOSED. RESP EVEN AND REGULAR. SR UP X2, CALL LIGHT WITHIN REACH.
--- NOTE | 2018-09-24 06:37 | NUR ---
VSS THROUGHOUT NIGHT. PT DENIED ANY DISCOMFORT. AM K+ 3.3. KCL 40 MEQ PO GIVEN WITH AM MED PER ELECTROLYTE PROTOCOL. NEEDS ,MET; WILL CONTINUE TO MONITIOR.
--- NOTE | 2018-09-24 07:25 | NUR ---
RPEORT RECIEVED AND PT LAYING IN BED EYES OPEN. PT REPORTS HE DIDNT SLEEP WELL LAST NIGHT. HOING TO GET SOME SLEEP TODAY. PT STATES NO OTHER NEEDS AT THIS TIME CALL LIGHT WITHIN REACH.
[2018-09-24 07:57] VITALS: BP 146/57
--- NOTE | 2018-09-24 11:21 | NUR ---
PT'S PIV IN LEFT FOREARM LEAKING. REMOVED PT'S PIV FROM LEFT FA. NO BLEEDING NOTED. PLACE 20M GAUGE PIV IN RIGHT HAND 1 STICK PT TOLERATED WELL. PT REQUESTED ZOFRAN FOR N/V. NO OTHER NEEDS AT THIS TIME .
[2018-09-24 11:57] VITALS: BP 169/73
--- NOTE | 2018-09-24 15:43 | NUR ---
I have reviewed this patient and I concur with the Shift Assessment completed by the Licensed Practical Nurse today this shift.
[2018-09-24 15:57] VITALS: BP 162/70
--- NOTE | 2018-09-24 16:27 | NUR ---
PT LAYING IN BED WATCHING TV. NO NEEDS AT THIS TIME CALL LIGTH WITHIN REACH.
--- NOTE | 2018-09-24 20:19 | NUR ---
INITIAL ROUNDS COMPLETED AT 1910 HRS. PT TALKING ON THE PHONE. NO DISTRESS NOTED. ASSESSMENT COMPLETED AT 1950 HRS. VSS. ALERT AND ORIENTED TO PERSON, PLACE AND TIME. HARRELL. IV TO R HAND SL. 2+ L PEDAL EDEMA. 4+ R PEDAL EDEMA. OLD R GREAT TOE AMPUTATION NOTED. SUTURES/STERI STRIPS TO R GROIN CLEAN,DRY AND INTACT. IRON DRAIN TO R GROIN WITH SMALL AMOUNTS OF CLEAR FLUID NOTED. WILL CONTINUE TO MONITOR. SR UP X2,CALL LIGHT WITHIN REACH.
[2018-09-24 20:35] VITALS: BP 152/57
--- NOTE | 2018-09-24 21:31 | NUR ---
PM MEDS GIVEN. PT DENIES ANY DISCOMFORT. CALL LIGHT WITHIN REACH.
--- NOTE | 2018-09-25 00:30 | NUR ---
ZOFRAN 4MG SIVP GIVEN FOR C/O NAUSEA. IRON DRAIN COMPRESSED WITH SCANT DRAINAGE NOTED. CALL LIGHT WITHIN REACH.
[2018-09-25 01:13] VITALS: BP 177/71
--- NOTE | 2018-09-25 03:00 | NUR ---
PT RESTING WITH EYES CLOSED. RESP EVEN AND REGULAR. SR UP X2, CALL LIGHT WITHIN REACH.
[2018-09-25 04:28] LABS: BASOPHILS 0.2 % (0-2); EOSINOPHILS 2.1 % (0-7); HEMATOCRIT 29.5 % (42.0-54.0); HEMOGLOBIN 10.5 g/dL (13.5-17.5); LYMPHOCYTES 29.6 % (15-50); MCHC 35.6 g/dL (31.0-37.0); MCV 84.3 fL (80.0-100.0); MEAN PLATELET VOLUME 8.1 fL (7.4-10.4); MONOCYTES 5.4 % (2-11); NEUTROPHILS 62.7 % (40-80); PLATELET COUNT 207 10x3/uL (130-400); RDW 13.9 % (11.5-14.5); WBC 6.2 10x3/uL (4.8-10.8)
[2018-09-25 04:43] LABS: ALBUMIN 1.6 g/dL (3.4-5.0); ANION GAP 10.7 mmol/L (8-16); BILIRUBIN - TOTAL 0.24 mg/dL (0.2-1.3); CALCIUM 7.7 mg/dL (8.5-10.1); CARBON DIOXIDE 24.9 mmol/L (21.0-32.0); CREATININE - SERUM 1.2 mg/dL (0.6-1.3); POTASSIUM - SERUM 3.6 mmol/L (3.5-5.1); PROTEIN - SERUM 5.1 g/dL (6.4-8.2)
--- NOTE | 2018-09-25 04:52 | NUR ---
25 CC OUT OF IRON DRAIN. PT STATED HESLEPT SOME DURING NIGHT. NEW DRESSING APPLIED OVER IRON SITE. CALL LIGHT WITHIN REACH.
[2018-09-25 05:26] VITALS: BP 172/72
--- NOTE | 2018-09-25 06:29 | NUR ---
VSS THROUGHOUT NIGHT. PT DENIED ANY DISCOMFORT. NEEDS MET; WILL CONTINUE TO MONITOR.
--- NOTE | 2018-09-25 07:16 | NUR ---
ASSESSMENT DONE. DENIES NEEDS.
--- NOTE | 2018-09-25 10:04 | NUR ---
I have reviewed this patient and I concur with the Shift Assessment completed by the Licensed Practical Nurse today this shift.
[2018-09-25 11:36] VITALS: BP 149/60
[2018-09-25 15:40] VITALS: BP 155/66
--- NOTE | 2018-09-25 17:21 | NUR ---
WITHOUT CHANGES OR DISTRESS NOTED AT THIS TIME. DENIES NEEDS
[2018-09-25 20:00] VITALS: BP 163/67
--- NOTE | 2018-09-25 21:10 | NUR ---
EVENING ROUNDS COMPLETED. VSS, WITH SPB 160'S. BP MEDS GIVEN ALONGSIDE EVENING MEDS. NO S/S OF DISTRESS NOTED. PT DENIES ANY FURTHER NEEDS AT THIS TIME. WILL CPOC.
[2018-09-26] VITALS: BP 154/71
[2018-09-26 04:00] VITALS: BP 151/65
[2018-09-26 04:42] LABS: BASOPHILS 0.2 % (0-2); EOSINOPHILS 1.6 % (0-7); HEMATOCRIT 30.1 % (42.0-54.0); HEMOGLOBIN 10.6 g/dL (13.5-17.5); IMMATURE GRANULOCYTES 0.1 % (0-5); LYMPHOCYTES 24.8 % (15-50); MCH 29.5 pg (26.0-34.0); MCHC 35.2 g/dL (31.0-37.0); MCV 83.8 fL (80.0-100.0); MEAN PLATELET VOLUME 8.2 fL (7.4-10.4); MONOCYTES 6.2 % (2-11); NEUTROPHILS 67.1 % (40-80); PLATELET COUNT 236 10x3/uL (130-400); RBC 3.59 10x6/uL (4.20-6.10); RDW 13.6 % (11.5-14.5)
[2018-09-26 04:52] LABS: WBC 8.2 10x3/uL (4.8-10.8)
[2018-09-26 05:00] LABS: ALBUMIN 1.7 g/dL (3.4-5.0); ANION GAP 11.3 mmol/L (8-16); BILIRUBIN - TOTAL 0.23 mg/dL (0.2-1.3); CALCIUM 7.3 mg/dL (8.5-10.1); CARBON DIOXIDE 24.8 mmol/L (21.0-32.0); CREATININE - SERUM 1.2 mg/dL (0.6-1.3); POTASSIUM - SERUM 3.1 mmol/L (3.5-5.1); PROTEIN - SERUM 4.5 g/dL (6.4-8.2)
--- NOTE | 2018-09-26 06:26 | NUR ---
EMPTIED PT IRON DRAIN. PT PUT OUT A TOTAL 170CC. PT K+ 3.1 40MEQ [employer]PER[employer] PER ELECTROLYTE PROTOCOL. WILL CPOC.
[2018-09-26 08:13] VITALS: BP 132/71
--- NOTE | 2018-09-26 08:35 | NUR ---
PT RESTING ON SIDE OF BED EATING BREAKFAST. AM MEDICATIONS GIVEN ORDERED, SHIFT ASSESSMENT PERFORMED. DENIES ANY NEEDS AT THIS TIME, WILL CONT TO FOLLOW POC
--- NOTE | 2018-09-26 11:23 | NUR ---
SPOKE WITH MICHAEL ESTRADA REGARDING PT STILL HAVING MODERATE AMOUNT OF DRAINAGE. MICHAEL SAID MOST LIKELY PT WILL NEED TO HAVE HH SET UP AND GO HOME WITH THE DRAIN BUT SHE WOULD TALK TO AND LET ME KNOW AN ANSWER FOR SURE
[2018-09-26 11:41] VITALS: BP 126/68
--- NOTE | 2018-09-26 12:35 | NUR ---
Nutrition follow-up: Diet: ADA consisten tCHO PO Intake 75-100% of meals Labs reviewed no BM charted Wt: 194# PO intake good at this time RDN following.
--- NOTE | 2018-09-26 12:51 | NUR ---
MICHAEL ESTRADA CALLED BACK AND STATES THAT IS OK WITH THE DRAIN TO COME OUT TODAY. NOTIFIED ATTENDING JEZ ESTRADA
--- NOTE | 2018-09-26 14:06 | NUR ---
DRAIN REMOVED WITH TIP INTACT, CLEAR LIQUID STARTED POURING OUT OF DRAIN HOLE, SATURATED AN ENTIRE PACKAGE OF 4X4 GAUZE. APPLIED 2 FOLDED UP ABD PADS AND APPLIED TO HOLE. ASKED PT IF HE HAS MONEY TO BUY THE ABD PADS ONCE HE GOES HOME, PT STATES NO, ASKED PT IF HE WOULD BE WILLING TO HAVE HH SO THAT THEY COULD ORDER THE SUPPLIES AND PT AGREES BUT STATES HE LIVES OUT OF HIS CAR. NOTIFIED MICHAEL ESTRADA AND SHE STATES THE DRAINAGE SHOULD SLOW DOWN. NOTIFIED JEZ ESTRADA AND SHE STATES TO GET CM INVOLVED SINCE THE PT IS HOMELESS AND THAT SHE WILL WAIT TO DISCHARGE PT. SPOKE WITH CM AND PER ULISES, PT IS NOT A CANIDATE FOR HH SINCE HE IS HOMELESS. PT CAN HAVE OUTPATIENT WOUND CARE THOUGH.
[2018-09-26 17:20] VITALS: BP 180/54
--- NOTE | 2018-09-26 19:55 | NUR ---
PT RESTING ON SIDE OF BED. RIGHT GROIN DRSG CHANGED AND IS NOW CLEAN AND DRY. CHANGED GOWN AND PADDING ON BED. PT DENIES ANY OTHER NEEDS. UP WITH MINIMAL ASSIST. PT WILL CALL FOR ASSIST WHEN NEEDED.WILL CPOC
[2018-09-26 20:00] VITALS: BP 157/56
--- NOTE | 2018-09-26 21:00 | NUR ---
ROUNDS COMPLETED VSS WTH SBP IN 150'S. AAOX4, NO S/S OF RESP DISTRESS. ABD DRESSING ON RIGHT GROIN C/D/I. BILAT HAND TREMORS NOTED. NO S/S OF DISTRESS @ THIS TIME WILL CPOC.
[2018-09-27] VITALS (7 sets, daily range): BP systolic 140–162; BP diastolic 58–68
--- NOTE | 2018-09-27 02:39 | NUR ---
FOUND PT ABD PADS TO RIGHT GROIN AREA SUPERSATURATED. DRESSING REMOVED, REPLACED WITH NEW ADB DRESSING AND TAPED. PT VOICED THANKS. WILL CTM. CL IN REACH.
[2018-09-27 05:47] LABS: BASOPHILS 0.3 % (0-2); EOSINOPHILS 1.6 % (0-7); HEMATOCRIT 29.6 % (42.0-54.0); HEMOGLOBIN 10.5 g/dL (13.5-17.5); IMMATURE GRANULOCYTES 0.2 % (0-5); LYMPHOCYTES 30.9 % (15-50); MCH 29.9 pg (26.0-34.0); MCHC 35.5 g/dL (31.0-37.0); MCV 84.3 fL (80.0-100.0); MEAN PLATELET VOLUME 8.4 fL (7.4-10.4); MONOCYTES 9.7 % (2-11); NEUTROPHILS 57.3 % (40-80); PLATELET COUNT 245 10x3/uL (130-400); RBC 3.51 10x6/uL (4.20-6.10); RDW 13.9 % (11.5-14.5); WBC 6.4 10x3/uL (4.8-10.8)
[2018-09-27 06:25] LABS: ALBUMIN 1.6 g/dL (3.4-5.0); ANION GAP 11.7 mmol/L (8-16); BILIRUBIN - TOTAL 0.19 mg/dL (0.2-1.3); CALCIUM 7.7 mg/dL (8.5-10.1); CARBON DIOXIDE 24.5 mmol/L (21.0-32.0); CREATININE - SERUM 1.4 mg/dL (0.6-1.3); POTASSIUM - SERUM 3.2 mmol/L (3.5-5.1); PROTEIN - SERUM 5.1 g/dL (6.4-8.2)
[2018-09-27 08:14] LABS: F. TULARENSIS - IGG Negative (Negative); F. TULARENSIS - IGM Negative (Negative)
--- NOTE | 2018-09-27 09:30 | NUR ---
PT SITTING ON SIDE OF BED EATING BREAKFAST. SHIFT ASSESSMENT PERFORMED. DENIES ANY NEEDS AT THIS TIME, AM MEDICATIONS GIVEN ORDERED, WILL CONT TO FOLLOW POC
--- NOTE | 2018-09-27 10:15 | NUR ---
PT REQUEST LINENS SO THAT HE CAN TAKE A SHOWER. LINENS PROVIDED AND COMPLETE BED CHANGE PROVIDED. DENIES ANY FURTHER NEEDS AT THIS TIME, WILL CONT TO FOLLOW POC
--- NOTE | 2018-09-27 12:30 | NUR ---
PT RESTING IN BED, CALL LIGHT WITHIN REACH, DENIES ANY NEEDS AT THIS TIME, WILL CONT TO FOLLOW POC
--- NOTE | 2018-09-27 14:24 | MORECARE ---
CASE MANAGEMENT DISCHARGE SUMMARY PATIENT: CAROLE MCKENNA UNIT: [id number] ADM DATE: 09/15/18 AGE: 63 : 57 SEX: M ROOM/BED: D.2112 AUTHOR: MEGHAN SMALL PHYSICIAN: REFERRING PHYSICIAN: GILLIAN WILSON MD DATE OF SERVICE: 09/27/18 Discharge Plan Patient Name: CAROLE MCKENNA Facility: [facility]:[place] : 1955 Planned Disposition: Home with Home Health Anticipated Discharge Date: 09/27/18 Discharge Date: Expected LOS: 12 Initial Reviewer: [email or web address] Initial Review Date: 09/15/2018 Generated: 09/27/18 3:24 pm Comments DCP- Discharge Planning Updated by [id number]: Javier Vincent on 09/27/18 1:[address] Patient Name: CAROLE MCKENNA Encounter No: [id number] : 1955 Primary Insurance: MEDICARE A & B Anticipated DC Date: 09-27-2018 Planned Disposition: Home with Home Health External Planned Provider: [facility] DCP follow-up note: CM, RECEIVED ORDER FOR "HOMELESS". CM MET WITH PT IN ROOM TO DISCUSS DISCHARGE NEEDS AND PLANNING. CM DISCUSSED AVAILABILITY OF HOME HEALTH, REHAB SERVICES AND MEDICAL EQUIPMENT. PT STATES THAT IF HE NEEDS HOME HEALTH, HE WANTS HOME HEALTH WITH [facility] OUT OF [place]. HE HAS USED THEM IN THE PAST. PT REPORTS HE WILL BE STAYING WITH HIS EX AT: [address] [place] [id number]. [id number], PHONE [phone]. PT DRIVING HOME AT DISCHARGE. IMPORTANT MESSAGE FROM MEDICARE PROVIDED AND EXPLAINED. CHOICE FOR [facility] SIGNED. CM TO FOLLOW AND ASSIST NEEDED. CM TO ARRANGE HOME HEALTH WITH [facility] IN [place] IF PHYSICIAN AGREES AND PROVIDES HOME HEALTH ORDERS. MARSHALL Valadez DCP- Discharge Planning Updated by [id number]: Javier Vincent on 09/19/18 3:[address] Patient Name: CAROLE MCKENNA Admission Status: ER Accout number: [id number] Admission Date: 09-15-2018 : 1955 Admission Diagnosis:EDEMA, UNSPECIFIED Attending: SINTIA WILSON Current LOS: 4 Anticipated DC Date: 09-20-2018 Planned Disposition: Home Primary Insurance: MEDICARE A & B Discharge Planning Comments: CM MET WITH PT IN ROOM TO DISCUSS DISCHARGE PLANNING AND NEEDS. PT REPORTS BEING HOMELESS AND LIVING IN HIS CAR, INDEPENDENTLY AND ALONE. PT HAS A CANE WITH NO MEDICAL EQUIPMENT PROVIDER PREFERENCE. PT HAS NO OUTSIDE SERVICES ASSISTING IN THE HOME. CM DISCUSSED AVAILABILITY OF HOME HEALTH, REHAB SERVICES AND MEDICAL EQUIPMENT. PT DENIES DISCHARGE NEEDS, REPORTS HIS CAR IS IN THE PARKING LOT FOR DISCHARGE PT DROVE HIMSELF TO THE HOSPITAL. PT IS SAVING TO RENT A PLACE IN THE FUTURE AND THINKS THAT $400 FOR SUBSUDIZED APARTMENT WITH GOVERNMENT HOUSING IS "TOO MUCH TO PAY". PT REPORTS BEING ON THE GOVERNMENT HOUSING WAITING LIST. PT BUYS BOTTLED WATER AND USES [employer] [facility] FOR SHOWER AND BATHROOM. PT DENIES DISCHARGE NEEDS AT THIS TIME. PT IS DISCHARGING HOMELESS AND LIVES IN HIS CARE, DENIES DISCHARGE NEEDS AT THIS TIME. CM TO FOLLOW AND ASSIST IF NEEDED. Asset Protection Assistant: Javier Vincent [facility] - Discharge Planning Initial Assessment Updated by [id number]: Javier Vincent on 09/19/18 4:02 pm * Is the patient Alert and Oriented? Yes * How many steps to enter\\exit or inside your home? NONE * PCP DR[facility] MORALES IN [facility] * [facility] IN [facility] * Preadmission Environment Homeless * Other Environment LIVING IN CAR * Facility Name NONE * ADLs Independent * Equipment Cane * Other Equipment NO MEDICAL EQUIPMENT PROVIDER PREFERENCE * List name and contact numbers for known caregivers / representatives who currently or will assist patient after discharge: LAYLA MITCHELL, SISTER, * Verbal permission to speak to the caregivers and representatives has been obtained from the patient. N/A * Community resources currently utilized None * Please name any agencies selected above. NONE * Additional services required to return to the preadmission environment? No * Can the patient safely return to the preadmission environment? Yes * Has this patient been hospitalized within the prior 30 days at any hospital? No External Providers External Provider: [facility] Next Contact Date: 09/27/2018 Service Request Date: Service Type: Resolution: Reviewer: Comments: Coverage Notice Reviewer: [email or web address] - Javier Vincent Notice Issued Date-Time: 09/27/2018 12:40 Notice Type: IM Discharge Notice Notice Delivered To: Patient Relationship to Patient: Reimbursement Auditor Name: Delivery Method: HAND - Hand Delivered Racheal Days: Prior Verbal Notification: Recipient Understood Notice: Yes Recipient Signature: Yes Med Rec Note Co-signed by Attending: Coverage Notice Comment: Last DP export: 09/19/18 3:12 p Patient Name: CAROLE MCKENNA Page [id number] at 1424 All edits/amendments must be made on the electronic document DICTATION DATE: 09/27/181423 LEAD JAVASCRIPT DEVELOPER: ALEJANDRA 09/27/181423 RPT#: [id number] DC DATE: STATUS: ADM IN [facility] [address] [place] [address] END OF REPORT
--- NOTE | 2018-09-27 15:44 | NUR ---
PATIENT SATURATED THROUGH ONE ABD PAD WITHIN 6HRS. CLEANSED RIGHT GROIN WITH SALINE AND CLEAN ABD PAD APPLIED TO RIGHT GROIN
--- NOTE | 2018-09-27 18:12 | NUR ---
PIV TO PT RIGHT HAND INFILTRATED, PIV REMOVED WITH CATHETER TIP INTACT. 22G PIV INSERTED TO RIGHT UPPER ARM X2 ATTEMPTS, PT TOLERATED WELL. CALL LIGHT WITHIN REACH, DENIES ANY NEEDS AT THIS TIME. WILL CONT TO FOLLOW POC
--- NOTE | 2018-09-27 19:48 | NUR ---
ROUNDS COMPLETED. VSS, AAOX4 NO S/S OF RESP DISTRESS. ABD PADS ON RIGHT GROIN C/D/I. BILAT ARM TREMORS NOTED. PT STATES HE DID NOT GET MUCH CLEEP DURING THE DAY, THAT HE WOULD LIKE TO SLEEP TONIGHT. PT CURRENTLY RESTING IN BED WITH EYES OPEN. WILL CPOC. CL WITHIN REACH.
--- NOTE | 2018-09-28 03:57 | NUR ---
FOUND PT DRESSING TO RIGHT GROIN SOAKED AND PT BED WET. REMOVED OLD DRESSING. APPLY ABD PADS AND TAPED. PT TOLERATE WELL. CHANGED PT'S LINENS, AND PROVIDED A NEW GOWN. PT VOICED THANKS. MILK PROVIDED PER PT REQUEST. WILL CPOC.
[2018-09-28 04:30] VITALS: BP 164/66
--- NOTE | 2018-09-28 07:30 | NUR ---
A/A/OX4. DENIES ANY PAIN OR DISCOMFORT AND NO REQUESTS VOICED. ASSESSMENT COMPLETED AND WILL CONTINUE POC. DRESSING TO RIGHT GROIN CHANGED.
[2018-09-28 07:35] VITALS: BP 155/64
[2018-09-28 08:51] LABS: ANION GAP 10.6 mmol/L (8-16); CALCIUM 7.9 mg/dL (8.5-10.1); CARBON DIOXIDE 26.9 mmol/L (21.0-32.0); CREATININE - SERUM 1.4 mg/dL (0.6-1.3); MAGNESIUM - SERUM 1.4 mg/dL (1.8-2.4); POTASSIUM - SERUM 3.5 mmol/L (3.5-5.1)
[2018-09-28 11:21] VITALS: BP 134/67
--- NOTE | 2018-09-28 11:43 | NUR ---
I have reviewed this patient and I concur with the Shift Assessment completed by the Licensed Practical Nurse today this shift.
[2018-09-28 14:11] LABS: EHRLICHIA CHAFF IGG Negative (Neg:<1:64); EHRLICHIA CHAFF IGM Negative (Neg:<1:20); HGE IGG TITER Negative (Neg:<1:64); HGE IGM TITER Negative (Neg:<1:20)
--- NOTE | 2018-09-28 14:14 | NUR ---
TO RADIOLOGY FOR DRAIN PLACEMENT TO LYMPHOCELE.
[2018-09-28 15:38] VITALS: BP 169/67
--- NOTE | 2018-09-28 19:30 | NUR ---
PATIENT SITTING UP ON SIDE OF THE BED. 8 GERMAN APD DRAINAGE CATH DRESSING C/D/I. PATIENT COMPLAINS OF NAUSEA. PATIENT GIVEN PRN DOSE OF ZOFRAN. NO OTHER COMPLAINTS AT THIS TIME. NO DISTRESS NOTED. WILL CONTINUE TO MONITOR.
[2018-09-28 20:00] VITALS: BP 164/57
--- NOTE | 2018-09-28 22:33 | NUR ---
PATIENT SITTING UP IN BED. NO COMPLAINTS AT THIS TIME. NO DISTRESS NOTED.
--- NOTE | 2018-09-28 23:10 | NUR ---
I have reviewed this patient and I concur with the Shift Assessment completed by the Licensed Practical Nurse today this shift.
[2018-09-29 00:30] VITALS: BP 151/57
[2018-09-29 04:21] LABS: BASOPHILS 0.5 % (0-2); EOSINOPHILS 2.8 % (0-7); HEMATOCRIT 29.3 % (42.0-54.0); HEMOGLOBIN 10.3 g/dL (13.5-17.5); IMMATURE GRANULOCYTES 0.2 % (0-5); LYMPHOCYTES 32.7 % (15-50); MCH 29.7 pg (26.0-34.0); MCHC 35.2 g/dL (31.0-37.0); MCV 84.4 fL (80.0-100.0); MEAN PLATELET VOLUME 8.4 fL (7.4-10.4); NEUTROPHILS 55.8 % (40-80); PLATELET COUNT 215 10x3/uL (130-400); RBC 3.47 10x6/uL (4.20-6.10); RDW 13.6 % (11.5-14.5); WBC 5.8 10x3/uL (4.8-10.8)
[2018-09-29 04:32] LABS: ALBUMIN 1.4 g/dL (3.4-5.0); ANION GAP 9.4 mmol/L (8-16); BILIRUBIN - TOTAL 0.13 mg/dL (0.2-1.3); CALCIUM 7.3 mg/dL (8.5-10.1); CARBON DIOXIDE 27.2 mmol/L (21.0-32.0); CREATININE - SERUM 1.5 mg/dL (0.6-1.3); MAGNESIUM - SERUM 1.3 mg/dL (1.8-2.4); POTASSIUM - SERUM 3.6 mmol/L (3.5-5.1); PROTEIN - SERUM 4.8 g/dL (6.4-8.2)
[2018-09-29 05:30] VITALS: BP 161/74
--- NOTE | 2018-09-29 08:10 | NUR ---
RESUMING PT CARE, PT SITTING UP ON SIDE OF BED, ALERT AND ORIENTED X3, CALL LIGHT IN REACH. WILL CONTINUE TO MONITOR AND FOLLOW PLAN OF CARE.
[2018-09-29 08:52] VITALS: BP 149/62
--- NOTE | 2018-09-29 12:21 | NUR ---
Nutrition Follow Up: Chart reviewed Diet: Regular PO Intake: 94% meal avg BM: 09/28/18 Labs reviewed - Glucose elevated Meds noted including Lasix Rec consider changing diet to regular to aid in controlling glucose. RD following.
[2018-09-29 12:29] VITALS: BP 142/72
--- NOTE | 2018-09-29 12:34 | NUR ---
I have reviewed this patient and I concur with the Shift Assessment completed by the Licensed Practical Nurse today this shift.
[2018-09-29 16:09] LABS: RMSF IGM 0.57 index (0.00-0.89)
[2018-09-29 18:00] VITALS: BP 134/62
[2018-09-29 20:00] VITALS: BP 165/67
--- NOTE | 2018-09-29 20:02 | NUR ---
EVENING ROUNDS COMPLETED. REPORT RECEIVED. PT SITTING UP IN BED WITH EYES OPEN, RR EVEN AND UNLABORED. BED IN LOW POSITION. NO S/S OF DISTRESS NOTED. INTRODUCED SELF TO PT. PT DENIES FURTHER NEEDS AT THIS TIME. CALL LIGHT IN REACH. WILL CTM.
--- NOTE | 2018-09-30 03:24 | NUR ---
I have reviewed this patient and I concur with the Shift Assessment completed by the Licensed Practical Nurse today this shift.
[2018-09-30 04:30] VITALS: BP 146/62
[2018-09-30 05:46] LABS: BASOPHILS 0.3 % (0-2); EOSINOPHILS 2.7 % (0-7); HEMOGLOBIN 10.7 g/dL (13.5-17.5); IMMATURE GRANULOCYTES 0.1 % (0-5); LYMPHOCYTES 31.8 % (15-50); MCH 30.1 pg (26.0-34.0); MCHC 35.7 g/dL (31.0-37.0); MCV 84.3 fL (80.0-100.0); MEAN PLATELET VOLUME 8.3 fL (7.4-10.4); MONOCYTES 7.2 % (2-11); NEUTROPHILS 57.9 % (40-80); PLATELET COUNT 249 10x3/uL (130-400); RBC 3.56 10x6/uL (4.20-6.10); RDW 13.3 % (11.5-14.5); WBC 6.7 10x3/uL (4.8-10.8)
[2018-09-30 06:11] LABS: ALBUMIN 1.4 g/dL (3.4-5.0); ANION GAP 11.6 mmol/L (8-16); BILIRUBIN - TOTAL 0.16 mg/dL (0.2-1.3); CALCIUM 7.3 mg/dL (8.5-10.1); CARBON DIOXIDE 24.8 mmol/L (21.0-32.0); CREATININE - SERUM 1.3 mg/dL (0.6-1.3); POTASSIUM - SERUM 3.4 mmol/L (3.5-5.1)
--- NOTE | 2018-09-30 06:29 | NUR ---
3.4 SERUM POTASSIUM AND 1.3 SERUM MAGNESIUM TREATED ORDERED
--- NOTE | 2018-09-30 07:05 | NUR ---
RECEIVED REPORT. ASSUMED CARE OF PATIENT. CALL LIGHT WITHIN REACH. PATIENT RESTING ON RIGHT LATERAL SIDE. RESP EVEN AND UNLABORED. EASILY AROUSED. COMPLAIN OF NAUSEA THIS AM. NO DISTRESS.
--- NOTE | 2018-09-30 07:26 | NUR ---
MEDICATED FOR NAUSEA AT THIS TIME.
[2018-09-30 09:33] VITALS: BP 143/64
--- NOTE | 2018-09-30 11:30 | NUR ---
PATIENT SITTING AT BEDSIDE. CALL LIGHT WITHIN REACH. 2% MILK PROVIDED UPON REQUEST. NO DISTRESS.
[2018-09-30 13:00] VITALS: BP 147/75
--- NOTE | 2018-09-30 14:38 | NUR ---
RESTING IN BED WITH EYES OPEN, ATTENTION TOWARD TELEVISION. DENIES NEEDS. NO DISTRESS. CALL LIGHT WITHIN REACH.
[2018-09-30 15:30] VITALS: BP 142/68
--- NOTE | 2018-09-30 17:11 | NUR ---
SITTING AT BEDSIDE CONSUMING PM MEAL. DENIES ANY NEEDS. NO DISTRESS. CALL LIGHT WITHIN REACH. 50CC IN DRAIN. PATIENT STATES TRAINING DEVELOPMENT DIRECTOR EMPTYED A LITTLE BIT AGO. WILL CONTINUE TO MONITOR.
--- NOTE | 2018-09-30 19:35 | NUR ---
EVENING ROUNDS COMPLETED. REPORT RECEIVED. PT LYING ON RIGHT SIDE IN BED WITH EYES CLOSED, RR EVEN AND UNLABORED. NO S/S OF DISTRESS NOTED. WHITE BOARD UPDATED. CALL LIGHT IN REACH. WILL CTM.
[2018-10-01 00:30] VITALS: BP 146/60
--- NOTE | 2018-10-01 03:37 | NUR ---
I have reviewed this patient and I concur with the Shift Assessment completed by the Licensed Practical Nurse today this shift
[2018-10-01 05:18] LABS: BASOPHILS 0.3 % (0-2); EOSINOPHILS 3.2 % (0-7); HEMOGLOBIN 10.5 g/dL (13.5-17.5); IMMATURE GRANULOCYTES 0.1 % (0-5); LYMPHOCYTES 34.3 % (15-50); MCH 29.6 pg (26.0-34.0); MCV 84.5 fL (80.0-100.0); MEAN PLATELET VOLUME 8.2 fL (7.4-10.4); MONOCYTES 8.7 % (2-11); NEUTROPHILS 53.4 % (40-80); PLATELET COUNT 244 10x3/uL (130-400); RBC 3.55 10x6/uL (4.20-6.10); RDW 13.3 % (11.5-14.5); WBC 7.1 10x3/uL (4.8-10.8)
[2018-10-01 05:30] VITALS: BP 142/64
[2018-10-01 05:37] LABS: ALBUMIN 1.3 g/dL (3.4-5.0); ANION GAP 10.6 mmol/L (8-16); BILIRUBIN - TOTAL 0.11 mg/dL (0.2-1.3); CALCIUM 7.4 mg/dL (8.5-10.1); CARBON DIOXIDE 25.9 mmol/L (21.0-32.0); CREATININE - SERUM 1.4 mg/dL (0.6-1.3); POTASSIUM - SERUM 3.5 mmol/L (3.5-5.1); PROTEIN - SERUM 4.7 g/dL (6.4-8.2)
--- NOTE | 2018-10-01 07:00 | NUR ---
RECEIVED REPORT. ASSUMED CARE OF PATIENT. PATIENT SITTING UP TO SIDE OF BED. HOT COFFEE PROVIDED. PATIENT DENIES ANY NEEDS AT THIS TIME. RESP EVEN AND UNLABORED. 100 CC TO COLLECTION BAG VIA GRAVITY FROM RIGHT GROIN DRAIN. NO DISTRESS. CALL LIGHT WITHIN REACH.
[2018-10-01 08:14] VITALS: BP 160/48
--- NOTE | 2018-10-01 09:30 | NUR ---
COMPLETE LINEN CHANGE PROVIDED.
--- NOTE | 2018-10-01 11:30 | NUR ---
SITTING TO SIDE OF BED. NO DISTRESS. DENIES NEEDS. WAITING ON NOON MEAL.
[2018-10-01 13:06] VITALS: BP 153/60
--- NOTE | 2018-10-01 15:00 | NUR ---
RESTING IN BED WITH EYES CLOSED. CALL LIGHT WITHIN REACH. NO DISTRESS.
--- NOTE | 2018-10-01 18:36 | NUR ---
RESTING IN BED WITH EYES OPEN. ATTENTION TOWARD TELEVISION AT THIS TIME. DENIES NEEDS. NO DISTRESS.
[2018-10-01 20:00] VITALS: BP 150/72
[2018-10-02 00:27] VITALS: BP 150/69
--- NOTE | 2018-10-02 04:00 | NUR ---
I have reviewed this patient and I concur with the Shift Assessment completed by the Licensed Practical Nurse today this shift.
[2018-10-02 04:25] VITALS: BP 147/68
[2018-10-02 05:21] LABS: BASOPHILS 0.3 % (0-2); HEMATOCRIT 29.2 % (42.0-54.0); HEMOGLOBIN 10.2 g/dL (13.5-17.5); IMMATURE GRANULOCYTES 0.1 % (0-5); LYMPHOCYTES 35.2 % (15-50); MCH 29.6 pg (26.0-34.0); MCHC 34.9 g/dL (31.0-37.0); MCV 84.6 fL (80.0-100.0); MEAN PLATELET VOLUME 8.4 fL (7.4-10.4); MONOCYTES 9.1 % (2-11); NEUTROPHILS 51.3 % (40-80); PLATELET COUNT 290 10x3/uL (130-400); RBC 3.45 10x6/uL (4.20-6.10); RDW 13.5 % (11.5-14.5); WBC 6.7 10x3/uL (4.8-10.8)
[2018-10-02 05:26] LABS: APTT 25.9 SECONDS (22.8-39.4); INR 0.99 (0.85-1.17); PROTIME 12.6 SECONDS (11.6-15.0)
[2018-10-02 05:53] LABS: ALBUMIN 1.4 g/dL (3.4-5.0); ANION GAP 10.4 mmol/L (8-16); BILIRUBIN - TOTAL 0.09 mg/dL (0.2-1.3); CALCIUM 7.5 mg/dL (8.5-10.1); CREATININE - SERUM 1.4 mg/dL (0.6-1.3); POTASSIUM - SERUM 3.4 mmol/L (3.5-5.1); PROTEIN - SERUM 4.9 g/dL (6.4-8.2)
[2018-10-02 07:40] VITALS: BP 157/78
--- NOTE | 2018-10-02 08:00 | NUR ---
PT RESTING IN BED, SHIFT ASSESSMENT PERFORMED. DENIES ANY NEEDS AT THIS TIME, WILL CONT TO FOLLOW POC
[2018-10-02 11:45] VITALS: BP 152/70
--- NOTE | 2018-10-02 11:48 | NUR ---
PT RESTING ON SIDE OF BED, DENIES ANY NEEDS AT THIS TIME, WILL CONT TO FOLLOW POC
--- NOTE | 2018-10-02 13:07 | NUR ---
Nutrition follow-up; Pt NPO for procedure today PO intake has been 100% of most meals Labs reviewed Wt: 190# Last BM charted 09/28N following.
[2018-10-02 16:08] VITALS: BP 140/76
--- NOTE | 2018-10-02 17:40 | NUR ---
PT SITTING ON SIDE OF BED EATING SUPPER, DENIES ANY NEEDS AT THIS TIME, WILL CONT TO FOLLOW POC
--- NOTE | 2018-10-02 19:46 | NUR ---
EVENING ROUNDS COMPLETED. REPORT RECEIVED. PT SITTING UP ON SIDE OF BED WITH EYES OPEN, RR EVEN AND UNLABORED. NO S/S OF DISTRESS NOTED. INTRODUCED SELF TO PT. PROVIDED PT WATER PER PT REQUEST. PT DENIES FURTHER NEEDS AT THIS TIME. BED IN LOW POSITION. CALL LIGHT IN REACH. WILL CTM.
[2018-10-02 20:00] VITALS: BP 128/53
[2018-10-03 04:00] VITALS: BP 127/57
[2018-10-03 05:55] LABS: BASOPHILS 0.2 % (0-2); HEMATOCRIT 30.9 % (42.0-54.0); HEMOGLOBIN 10.8 g/dL (13.5-17.5); IMMATURE GRANULOCYTES 0.2 % (0-5); LYMPHOCYTES 31.4 % (15-50); MCH 29.8 pg (26.0-34.0); MCV 85.4 fL (80.0-100.0); MEAN PLATELET VOLUME 8.4 fL (7.4-10.4); NEUTROPHILS 53.2 % (40-80); PLATELET COUNT 296 10x3/uL (130-400); RBC 3.62 10x6/uL (4.20-6.10); RDW 13.5 % (11.5-14.5); WBC 6.3 10x3/uL (4.8-10.8)
[2018-10-03 06:13] LABS: INR 1.04 (0.85-1.17); PROTIME 13.1 SECONDS (11.6-15.0)
[2018-10-03 06:24] LABS: ALBUMIN 1.2 g/dL (3.4-5.0); ANION GAP 9.2 mmol/L (8-16); CALCIUM 7.3 mg/dL (8.5-10.1); CREATININE - SERUM 1.2 mg/dL (0.6-1.3); POTASSIUM - SERUM 3.2 mmol/L (3.5-5.1); PROTEIN - SERUM 4.7 g/dL (6.4-8.2)
[2018-10-03 06:27] LABS: BILIRUBIN - TOTAL 0.09 mg/dL (0.2-1.3)
[2018-10-03 07:20] VITALS: BP 138/51
--- NOTE | 2018-10-03 08:30 | NUR ---
PT RESTING IN BED, SHIFT ASSESSMENT PERFORMED, DENIES ANY NEEDS AT THIS TIME, WILL CONT TO FOLLOW POC
--- NOTE | 2018-10-03 08:45 | NUR ---
PT LEFT FLOOR FOR IVR
--- NOTE | 2018-10-03 09:30 | NUR ---
PT RETURNED TO FLOOR FROM IVR
[2018-10-03 10:46] VITALS: BP 142/54
--- NOTE | 2018-10-03 11:53 | NUR ---
PT RESTING IN BED. DENIES ANY NEEDS AT THIS TIME, WILL CONT TO FOLLOW POC
[2018-10-03 18:32] VITALS: BP 130/60
--- NOTE | 2018-10-03 19:39 | NUR ---
PT IN BED. DRAIN TO R GROIN EMPTIED 300ML REMOVED. DENIES NEEDS AT THIS TIME.
[2018-10-03 21:24] VITALS: BP 130/60
[2018-10-04] VITALS (7 sets, daily range): BP systolic 127–166; BP diastolic 46–70; BMI 25.1
[2018-10-04 05:55] LABS: BASOPHILS 0.3 % (0-2); EOSINOPHILS 4.1 % (0-7); HEMATOCRIT 29.9 % (42.0-54.0); HEMOGLOBIN 10.4 g/dL (13.5-17.5); LYMPHOCYTES 30.2 % (15-50); MCH 29.5 pg (26.0-34.0); MCHC 34.8 g/dL (31.0-37.0); MCV 84.9 fL (80.0-100.0); MEAN PLATELET VOLUME 8.4 fL (7.4-10.4); MONOCYTES 7.8 % (2-11); NEUTROPHILS 57.6 % (40-80); PLATELET COUNT 261 10x3/uL (130-400); RBC 3.52 10x6/uL (4.20-6.10); RDW 13.3 % (11.5-14.5); WBC 5.9 10x3/uL (4.8-10.8)
[2018-10-04 06:16] LABS: ANION GAP 9.6 mmol/L (8-16); CALCIUM 7.5 mg/dL (8.5-10.1); CREATININE - SERUM 1.2 mg/dL (0.6-1.3); POTASSIUM - SERUM 3.6 mmol/L (3.5-5.1)
[2018-10-05 04:00] VITALS: BP 147/61
[2018-10-05 06:02] LABS: BASOPHILS 0.3 % (0-2); EOSINOPHILS 3.9 % (0-7); HEMATOCRIT 30.1 % (42.0-54.0); HEMOGLOBIN 10.7 g/dL (13.5-17.5); IMMATURE GRANULOCYTES 0.2 % (0-5); LYMPHOCYTES 30.6 % (15-50); MCHC 35.5 g/dL (31.0-37.0); MCV 84.3 fL (80.0-100.0); MEAN PLATELET VOLUME 8.5 fL (7.4-10.4); MONOCYTES 8.9 % (2-11); NEUTROPHILS 56.1 % (40-80); PLATELET COUNT 269 10x3/uL (130-400); RBC 3.57 10x6/uL (4.20-6.10); RDW 13.3 % (11.5-14.5); WBC 6.2 10x3/uL (4.8-10.8)
[2018-10-05 06:03] LABS: ANION GAP 10.9 mmol/L (8-16); CALCIUM 7.5 mg/dL (8.5-10.1); CARBON DIOXIDE 23.7 mmol/L (21.0-32.0); CREATININE - SERUM 1.3 mg/dL (0.6-1.3); POTASSIUM - SERUM 3.6 mmol/L (3.5-5.1)
--- NOTE | 2018-10-05 06:37 | NUR ---
PT IN BED IN LOW FOWLERS POSITION. ALERT AND ORIENTED X4. RESPIRATIONS EVEN AND UNLABORED. VITAL SIGNS STABLE AND AFEBRILE. NO VISUAL CUES OF DISTRESS NOTED. DENIES ANY OTHER NEEDS AT THIS TIME. BED LOW, SIDE RAILS UP X2. CALL LIGHT IN REACH. WILL CONTINUE TO MONITOR.
--- NOTE | 2018-10-05 07:30 | NUR ---
RECEIVED PT SITTING ON BED AAOX4 RESP UNLABORED DENIES ANY NEEDS OR DISCOMFORT AT THIS TIME
[2018-10-05 09:23] VITALS: BP 132/82
[2018-10-05 13:35] VITALS: BP 120/69
[2018-10-05 18:00] VITALS: BP 157/63
[2018-10-05 20:00] VITALS: BP 158/70
--- NOTE | 2018-10-05 20:00 | NUR ---
PATIENT LAYING IN BED. NO COMPLAINTS AT THIS TIME. NO DISTRESS NOTED.
--- NOTE | 2018-10-06 00:30 | NUR ---
EMPTY APD DRAINAGE CATH 380ML
--- NOTE | 2018-10-06 00:30 | NUR ---
380ML OF SEROUS FLUID DRAINED FROM APD DRAINAGE CATH TO RIGHT GROIN. NO COMPLAINTS AT THIS TIME. NO DISTRESS NOTED.
--- NOTE | 2018-10-06 03:33 | NUR ---
REST IN BED, EYE CLOSE, CALL LIGHT IN REACH.
[2018-10-06 04:00] VITALS: BP 166/67
[2018-10-06 05:06] LABS: BASOPHILS 0.3 % (0-2); HEMATOCRIT 29.7 % (42.0-54.0); HEMOGLOBIN 10.5 g/dL (13.5-17.5); IMMATURE GRANULOCYTES 0.3 % (0-5); LYMPHOCYTES 39.3 % (15-50); MCH 29.8 pg (26.0-34.0); MCHC 35.4 g/dL (31.0-37.0); MCV 84.4 fL (80.0-100.0); MEAN PLATELET VOLUME 8.3 fL (7.4-10.4); MONOCYTES 6.1 % (2-11); PLATELET COUNT 256 10x3/uL (130-400); RBC 3.52 10x6/uL (4.20-6.10); RDW 13.5 % (11.5-14.5); WBC 5.7 10x3/uL (4.8-10.8)
[2018-10-06 05:14] LABS: APTT 25.4 SECONDS (22.8-39.4); INR 0.96 (0.85-1.17); PROTIME 12.3 SECONDS (11.6-15.0)
[2018-10-06 05:17] LABS: ANION GAP 11.3 mmol/L (8-16); CALCIUM 7.4 mg/dL (8.5-10.1); CARBON DIOXIDE 23.3 mmol/L (21.0-32.0); CREATININE - SERUM 1.4 mg/dL (0.6-1.3); POTASSIUM - SERUM 3.6 mmol/L (3.5-5.1)
--- NOTE | 2018-10-06 07:45 | NUR ---
PT AWAKE AND ORIENTED, KNOWS THAT HE IS GOING FOR A PROCEDURE TODAY. COMPLAINTS OF BEING HUNGRY BUT KNOWS HE CAN NOT EAT AT THIS TIME. ANSWERED QUESTIONS TO THE BEST OF MY ABILITY. NO COMPLAINTS/CONCERNS STATED OTHERWISE. CL IN REACH, SR2.
[2018-10-06 09:18] VITALS: BP 150/53
--- NOTE | 2018-10-06 09:54 | NUR ---
BACK FROM ABESS DRAIN/ DRAIN ATTACHED IN PLACE, WNL. NO COMPLAINTS/CONCERNS VIOCED AT THIS TIME. CL IN REACH, SRX2.
--- NOTE | 2018-10-06 11:59 | NUR ---
Nutrition follow-up: Pt has been NPO this am for abcess draining in surgery Diet just advanced back to regular PO intake 100% of most meals Labs reviewed Wt: 189# RDN following.
[2018-10-06 13:12] VITALS: BP 174/72
[2018-10-06 17:11] VITALS: BP 135/67
--- NOTE | 2018-10-06 18:39 | NUR ---
PT LYING IN BED, NO COMPLAINTS/CONCERNS VOICED AT THIS TIME. SITE CLEAN DRY AND INTACT. CL IN REACH, SRX2.
--- NOTE | 2018-10-06 19:10 | NUR ---
PATIENT LAYING IN BED. EYES CLOSED, CHEST RISING AND FALLING. NO DISTRESS NOTED.
[2018-10-06 20:22] VITALS: BP 168/73
[2018-10-07] VITALS (7 sets, daily range): BP systolic 141–168; BP diastolic 63–72
--- NOTE | 2018-10-07 02:56 | NUR ---
I have reviewed this patient and I concur with the Shift Assessment completed by the Licensed Practical Nurse today this shift.
--- NOTE | 2018-10-07 04:07 | NUR ---
PATIENT LAYING IN BED, EYES CLOSED, CHEST RISING AND FALLING. NO DISTRESS NOTED.
[2018-10-07 04:58] LABS: BASOPHILS 0.2 % (0-2); EOSINOPHILS 3.3 % (0-7); HEMOGLOBIN 11.1 g/dL (13.5-17.5); IMMATURE GRANULOCYTES 0.2 % (0-5); LYMPHOCYTES 32.8 % (15-50); MCH 29.8 pg (26.0-34.0); MCHC 35.8 g/dL (31.0-37.0); MCV 83.3 fL (80.0-100.0); MEAN PLATELET VOLUME 8.2 fL (7.4-10.4); MONOCYTES 7.9 % (2-11); NEUTROPHILS 55.6 % (40-80); PLATELET COUNT 284 10x3/uL (130-400); RBC 3.72 10x6/uL (4.20-6.10); RDW 13.3 % (11.5-14.5); WBC 6.3 10x3/uL (4.8-10.8)
[2018-10-07 05:22] LABS: ANION GAP 10.2 mmol/L (8-16); CALCIUM 7.6 mg/dL (8.5-10.1); CARBON DIOXIDE 25.2 mmol/L (21.0-32.0); CREATININE - SERUM 1.4 mg/dL (0.6-1.3); POTASSIUM - SERUM 3.4 mmol/L (3.5-5.1)
--- NOTE | 2018-10-07 07:38 | NUR ---
PT IS AWAKE AND ORIENTED, LYING IN BED. STATES NO CONCERNS/COMPLAINTS AT THIS TIME. CL IN REACH, SRX2.
--- NOTE | 2018-10-07 14:50 | NUR ---
I have reviewed this patient and I concur with the Shift Assessment completed by the Licensed Practical Nurse today this shift.
--- NOTE | 2018-10-07 19:45 | NUR ---
PT AWAKE ALERT AND ORIENTED X4. RR EVEN AND UNLABORED, VITALS STABLE. PT DENIES ANY PAIN OR NEEDS AT THIS TIME. BED LOW CALL LIGHT WITHIN REACH. WILL CONTINUE TO MONITOR.
--- NOTE | 2018-10-08 01:49 | NUR ---
PT RESTING IN BED A&O. PT DENIES NEEDS OR PAIN AT THIS TIME. BED LOW CALL LIGHT WITHIN REACH. WILL CONTINUE TO MONITOR.
--- NOTE | 2018-10-08 03:11 | NUR ---
I have reviewed this patient and I concur with the Shift Assessment completed by the Licensed Practical Nurse today this shift.
[2018-10-08 04:54] LABS: BASOPHILS 0.3 % (0-2); EOSINOPHILS 3.6 % (0-7); HEMATOCRIT 29.8 % (42.0-54.0); HEMOGLOBIN 10.6 g/dL (13.5-17.5); IMMATURE GRANULOCYTES 0.2 % (0-5); LYMPHOCYTES 34.9 % (15-50); MCH 29.6 pg (26.0-34.0); MCHC 35.6 g/dL (31.0-37.0); MCV 83.2 fL (80.0-100.0); MEAN PLATELET VOLUME 8.4 fL (7.4-10.4); MONOCYTES 8.8 % (2-11); NEUTROPHILS 52.2 % (40-80); PLATELET COUNT 254 10x3/uL (130-400); RBC 3.58 10x6/uL (4.20-6.10); RDW 13.1 % (11.5-14.5); WBC 6.1 10x3/uL (4.8-10.8)
[2018-10-08 05:10] LABS: ANION GAP 11.5 mmol/L (8-16); CALCIUM 7.6 mg/dL (8.5-10.1); CARBON DIOXIDE 22.9 mmol/L (21.0-32.0); CREATININE - SERUM 1.5 mg/dL (0.6-1.3); POTASSIUM - SERUM 3.4 mmol/L (3.5-5.1)
--- NOTE | 2018-10-08 05:40 | NUR ---
OUT PUT FROM APD DRAIN 225ML THIS AM. WILL CONTINUE TO MONITOR.
--- NOTE | 2018-10-08 06:06 | NUR ---
CALLED DR. SHARPE CONCERNING PT'S GLUCOSE OF 446. NEW ORDERS TO RESTART GLUCAPHAGE AND TO ESTABLISH INTERMEDIATE SLIDING SCALE. WILL CONTINUE TO MONITOR.
--- NOTE | 2018-10-08 07:27 | NUR ---
PT ASLEEP. DID NOT WAKE I ENTERED, DID NOT FURTHER DISTURB AT THIS TIME. BREATHS EVEN/REGULAR, NO SIGNS OR SYMPTOMS OF ACUTE DISTRESS. CL IN REACH, SRX2.
[2018-10-08 07:59] VITALS: BP 138/54
[2018-10-08 11:57] VITALS: BP 123/53
--- NOTE | 2018-10-08 11:57 | NUR ---
PT AWAKE AND ORIENTED, WSATCHING TV. NO COMPLAINTS/CONCERNS AT THIS TIME. CL IN REACH, SRX2.
[2018-10-08 16:27] VITALS: BP 113/53
--- NOTE | 2018-10-08 18:17 | NUR ---
I have reviewed this patient and I concur with the Shift Assessment completed by the Licensed Practical Nurse today this shift.
[2018-10-08 19:45] VITALS: BP 147/63
--- NOTE | 2018-10-08 19:49 | NUR ---
PT UP TO SIDE OF BED AND ALERT AND OX4 BED IS LOW AND LOCKED PT HAS CALL LIGHT IN HAND PT DENIES ANY NEEDS AT THIS TIME LCTA SKIN WARM AND DRY AND BOWEL SOUNDS X4 I DID NORT OBSERVE LEG DRAIN AT THIS TIME
[2018-10-08 23:44] VITALS: BP 159/68
--- NOTE | 2018-10-09 03:01 | NUR ---
I have reviewed this patient and I concur with the Shift Assessment completed by the Licensed Practical Nurse today this shift.
[2018-10-09 03:42] VITALS: BP 148/69
[2018-10-09 05:56] LABS: BASOPHILS 0.3 % (0-2); EOSINOPHILS 4.3 % (0-7); HEMATOCRIT 30.4 % (42.0-54.0); HEMOGLOBIN 10.8 g/dL (13.5-17.5); IMMATURE GRANULOCYTES 0.3 % (0-5); LYMPHOCYTES 31.2 % (15-50); MCH 29.5 pg (26.0-34.0); MCHC 35.5 g/dL (31.0-37.0); MCV 83.1 fL (80.0-100.0); MEAN PLATELET VOLUME 8.3 fL (7.4-10.4); MONOCYTES 7.8 % (2-11); NEUTROPHILS 56.1 % (40-80); PLATELET COUNT 252 10x3/uL (130-400); RBC 3.66 10x6/uL (4.20-6.10); RDW 13.3 % (11.5-14.5); WBC 6.7 10x3/uL (4.8-10.8)
[2018-10-09 06:18] LABS: ANION GAP 9.7 mmol/L (8-16); CALCIUM 7.5 mg/dL (8.5-10.1); CARBON DIOXIDE 24.5 mmol/L (21.0-32.0); CREATININE - SERUM 1.4 mg/dL (0.6-1.3); POTASSIUM - SERUM 3.2 mmol/L (3.5-5.1)
--- NOTE | 2018-10-09 07:14 | NUR ---
PT LYING IN BED WATCHING T/V, ALERT/ORIENTED. NO COMPLAINTS/CONCERNS, REQUESTS COFFEE. CL IN REACH, SRX2.
[2018-10-09 07:59] VITALS: BP 159/62
--- NOTE | 2018-10-09 08:24 | MORECARE ---
CASE MANAGEMENT DISCHARGE SUMMARY PATIENT: CAROLE MCKENNA UNIT: [id number] ADM DATE: 09/15/18 AGE: 63 : 57 SEX: M ROOM/BED: D.2112 AUTHOR: MEGHAN SMALL PHYSICIAN: REFERRING PHYSICIAN: GILLIAN WILSON MD DATE OF SERVICE: 10/09/18 Discharge Plan Patient Name: CAROLE MCKENNA Facility: [facility]:[place] : 1955 Planned Disposition: Home with Home Health Anticipated Discharge Date: 09/27/18 Discharge Date: Expected LOS: 12 Initial Reviewer: [email or web address] Initial Review Date: 09/15/2018 Generated: 10/09/18 9:24 am DCP- Discharge Planning Updated by [id number]: Javier Vincent on 09/27/18 1:[address] Patient Name: CAROLE MCKENNA Encounter No: [id number] : 1955 Primary Insurance: MEDICARE A & B Anticipated DC Date: 09-27-2018 Planned Disposition: Home with Home Health External Planned Provider: [facility] BY [facility], [place] DCP follow-up note: CM, RECEIVED ORDER FOR "HOMELESS". CM MET WITH PT IN ROOM TO DISCUSS DISCHARGE NEEDS AND PLANNING. CM DISCUSSED AVAILABILITY OF HOME HEALTH, REHAB SERVICES AND MEDICAL EQUIPMENT. PT STATES THAT IF HE NEEDS HOME HEALTH, HE WANTS HOME HEALTH WITH [facility] OUT OF [place]. HE HAS USED THEM IN THE PAST. PT REPORTS HE WILL BE STAYING WITH HIS EX AT: [address] [place] [address]. [id number], PHONE [phone]. PT DRIVING HOME AT DISCHARGE. IMPORTANT MESSAGE FROM MEDICARE PROVIDED AND EXPLAINED. CHOICE FOR [facility] SIGNED. CM TO FOLLOW AND ASSIST NEEDED. CM TO ARRANGE HOME HEALTH WITH [facility] IN [place] IF PHYSICIAN AGREES AND PROVIDES HOME HEALTH ORDERS. MARSHALL Valadez DCP- Discharge Planning Updated by [id number]: Javier Vincent on 09/19/18 3:[address] Patient Name: CAROLE MCKENNA Admission Status: ER Accout number: [id number] Admission Date: 09-15-2018 : 1955 Admission Diagnosis:EDEMA, UNSPECIFIED Attending: SINTIA WILSON Current LOS: 4 Anticipated DC Date: 09-20-2018 Planned Disposition: Home Primary Insurance: MEDICARE A & B Discharge Planning Comments: CM MET WITH PT IN ROOM TO DISCUSS DISCHARGE PLANNING AND NEEDS. PT REPORTS BEING HOMELESS AND LIVING IN HIS CAR, INDEPENDENTLY AND ALONE. PT HAS A CANE WITH NO MEDICAL EQUIPMENT PROVIDER PREFERENCE. PT HAS NO OUTSIDE SERVICES ASSISTING IN THE HOME. CM DISCUSSED AVAILABILITY OF HOME HEALTH, REHAB SERVICES AND MEDICAL EQUIPMENT. PT DENIES DISCHARGE NEEDS, REPORTS HIS CAR IS IN THE PARKING LOT FOR DISCHARGE PT DROVE HIMSELF TO THE HOSPITAL. PT IS SAVING TO RENT A PLACE IN THE FUTURE AND THINKS THAT $400 FOR SUBSUDIZED APARTMENT WITH GOVERNMENT HOUSING IS "TOO MUCH TO PAY". PT REPORTS BEING ON THE GOVERNMENT HOUSING WAITING LIST. PT BUYS BOTTLED WATER AND USES [employer] [facility] FOR SHOWER AND BATHROOM. PT DENIES DISCHARGE NEEDS AT THIS TIME. PT IS DISCHARGING HOMELESS AND LIVES IN HIS CARE, DENIES DISCHARGE NEEDS AT THIS TIME. CM TO FOLLOW AND ASSIST IF NEEDED. Archives Specialist: Javier Vincent [facility] Planning Initial Assessment Updated by [id number]: Javier Vincent on 09/19/18 4:02 pm * Is the patient Alert and Oriented? Yes * How many steps to enter\\exit or inside your home? NONE * PCP DR. [facility]LE MORALES IN [facility] * Pharmacy [facility] IN [facility] * Preadmission Environment Homeless * Other Environment LIVING IN CAR * Facility Name NONE * ADLs Independent * Equipment Cane * Other Equipment NO MEDICAL EQUIPMENT PROVIDER PREFERENCE * List name and contact numbers for known caregivers / representatives who currently or will assist patient after discharge: LAYLA MITCHELL, SISTER, * Verbal permission to speak to the caregivers and representatives has been obtained from the patient. N/A * Community resources currently utilized None * Please name any agencies selected above. NONE * Additional services required to return to the preadmission environment? No * Can the patient safely return to the preadmission environment? Yes * Has this patient been hospitalized within the prior 30 days at any hospital? No Coverage Notice Reviewer: [id number] - Javier Vincent Notice Issued Date-Time: 09/27/2018 12:40 Notice Type: IM Discharge Notice Notice Delivered To: Patient Relationship to Patient: Wine Sales Representative Name: Delivery Method: HAND - Hand Delivered Racheal Days: Prior Verbal Notification: Recipient Understood Notice: Yes Recipient Signature: Yes Med Rec Note Co-signed by Attending: Coverage Notice Comment: Reviewer: [email or web address] - Javier Vincent Notice Issued Date-Time: 09/27/2018 12:40 Notice Type: Patient Choice Letter Notice Delivered To: Patient Relationship to Patient: Wine Sales Representative Name: Delivery Method: HAND - Hand Delivered Racheal Days: Prior Verbal Notification: Recipient Understood Notice: Yes Recipient Signature: Yes Med Rec Note Co-signed by Attending: Coverage Notice Comment: [facility] Last DP export: 09/27/18 1:24 p Patient Name: CAROLE MCKENNA Page [phone] at 0824 All edits/amendments must be made on the electronic document DICTATION DATE: 10/09/18823 MILL FEEDER: ALEJANDRA 10/09/18823 RPT#: [id number] DC DATE: STATUS: ADM IN [facility] [address] [place] [address] END OF REPORT
[2018-10-09 12:04] VITALS: BP 129/66
--- NOTE | 2018-10-09 19:00 | NUR ---
ALERT AND OX4 PT DENIES NEEDS AT THIS TIME LCTA BOWEL SOUNDS X4 AND SKIN WARM AND DRY DRAIN TO GRAVITY AT THIS TINME BED LOCKED LOW AND CALL LIGHT IS IN REACH
[2018-10-09 20:00] VITALS: BP 144/63
[2018-10-10] VITALS (8 sets, daily range): BP systolic 121–171; BP diastolic 59–84
[2018-10-10 05:03] LABS: BASOPHILS 0.3 % (0-2); EOSINOPHILS 2.4 % (0-7); HEMATOCRIT 30.8 % (42.0-54.0); IMMATURE GRANULOCYTES 0.3 % (0-5); LYMPHOCYTES 29.5 % (15-50); MCHC 35.7 g/dL (31.0-37.0); MCV 83.9 fL (80.0-100.0); MEAN PLATELET VOLUME 8.3 fL (7.4-10.4); MONOCYTES 7.5 % (2-11); PLATELET COUNT 264 10x3/uL (130-400); RBC 3.67 10x6/uL (4.20-6.10); RDW 13.3 % (11.5-14.5); WBC 6.3 10x3/uL (4.8-10.8)
[2018-10-10 05:11] LABS: ANION GAP 10.8 mmol/L (8-16); CALCIUM 7.5 mg/dL (8.5-10.1); CARBON DIOXIDE 27.4 mmol/L (21.0-32.0); CREATININE - SERUM 1.5 mg/dL (0.6-1.3)
[2018-10-10 05:12] LABS: INR 1.04 (0.85-1.17); POTASSIUM - SERUM 3.2 mmol/L (3.5-5.1); PROTIME 13.2 SECONDS (11.6-15.0)
--- NOTE | 2018-10-10 06:02 | NUR ---
NIKITA IS 3.2 OPTED NOT TO TREAT NPO FOR PROCEDURE
--- NOTE | 2018-10-10 10:58 | NUR ---
SPECIALS HERE TO TAKE PT FOR PROCEDURE. NO IMMEDIATE NEEDS. WILL CTM.
--- NOTE | 2018-10-10 12:40 | NUR ---
PT BACK FROM PROCEDURE AWAKE A&O LYING BACK IN BED RESTING QUIETLY. PT NO LONGER NPO BUT DENIES BEING HUNGRY AND WOULD JUST LIKE SOME WATER AND WAS PROVIDED WITH IT. PT HAS A DRSG CDI TO R.GROIN AND SAND BAG IN PLACE AND TO REMAIN X1HR PER IR TEAM. NO S/S OF DRAINING, BLEEDING OR HEMATOMA NOTED. PERIPHERAL PULSES INTACT. VSS AND BEING MONITERED PER POST PROCEDURE PROTOCOL. PROVIDED PT WITH MORNING MEDICATIONS HE MISSED SOME IMPORTANT ONES AND BP ONES. ALSO PROVIDED PT WITH POTASSIUM PER ELECTROLYTE PROTCOL. PT VOICED THANKS AND IS RESTING QUIETLY IN BED. DENIES ANY CURRENT PAIN OR NEEDS AT THIS TIME. WILL CTM.
[2018-10-10] MEDS ORDERED: MYSOLINE 50 MG50 MG PO (13:07)
[2018-10-10] MEDS ORDERED: BETAPACE 80 MG80 MG PO (13:08)
--- NOTE | 2018-10-10 13:20 | NUR ---
SAND BAG REMOVED AND DRSG CDI TO R.GROIN. NO S/S OF HEMATOMA OR BLEEDING NOTED. VSS AND BEING MONITERED PER POST PROCEDURE POLICY. PT STATES HE IS FEELING GOOD OVERALL, JUST SLIGHT DISCOMFORT IN HIS ABDOMEN. PT DENIES ANY CURRENT PAIN OR NEEDS AT THIS TIME. CL IN REACH, BED IN LOWEST, SIDE RAILS X2. WILL CTM.
--- NOTE | 2018-10-10 13:31 | NUR ---
Nutrition follow-up: Pt has been NPO today for procedure Diet has advanced back to ADA PO intake has been ~90% average of last 6 meals labs reviewed WT: 185# +BM RDN following.
--- NOTE | 2018-10-10 18:28 | NUR ---
REPEAT POTASSIUM UP TO 4.0 NO FURTHER COVERAGE REQUIRED PER ELECTROLYTE PROTOCOL. DRAINED 150ML OF SEROUS FLUID FROM R.GROIN DRAIN. PT DENIES ANY CURRENT PAIN OR NEEDS AT THIS TIME. CL IN REACH. WILL CTM.
--- NOTE | 2018-10-10 19:30 | NUR ---
AWAKE AND ALERT AND DENIES PAIN ..EFFORTS MADE TO IMPROVE COMFORT AT THIS TIME LCTA SKIN WARM AND DRY DRAIN TO GRAVITY CLEAR FLUID BED LOW AND LOCKED CALL LIGHT IN PT HAND AND DENIES OTHER NEEDS
[2018-10-11 00:08] VITALS: BP 127/57
--- NOTE | 2018-10-11 03:00 | NUR ---
I have reviewed this patient and I concur with the Shift Assessment completed by the Licensed Practical Nurse today this shift.
[2018-10-11 04:00] VITALS: BP 136/64
[2018-10-11 04:31] LABS: BASOPHILS 0.3 % (0-2); EOSINOPHILS 2.9 % (0-7); HEMATOCRIT 32.1 % (42.0-54.0); HEMOGLOBIN 11.4 g/dL (13.5-17.5); IMMATURE GRANULOCYTES 0.2 % (0-5); LYMPHOCYTES 32.2 % (15-50); MCH 30.1 pg (26.0-34.0); MCHC 35.5 g/dL (31.0-37.0); MCV 84.7 fL (80.0-100.0); MEAN PLATELET VOLUME 8.4 fL (7.4-10.4); MONOCYTES 11.6 % (2-11); NEUTROPHILS 52.8 % (40-80); PLATELET COUNT 271 10x3/uL (130-400); RBC 3.79 10x6/uL (4.20-6.10); RDW 13.5 % (11.5-14.5); WBC 5.8 10x3/uL (4.8-10.8)
[2018-10-11 04:45] LABS: ANION GAP 11.5 mmol/L (8-16); CALCIUM 7.8 mg/dL (8.5-10.1); CARBON DIOXIDE 25.7 mmol/L (21.0-32.0); CREATININE - SERUM 1.4 mg/dL (0.6-1.3)
[2018-10-11 04:57] LABS: POTASSIUM - SERUM 3.2 mmol/L (3.5-5.1)
[2018-10-11 08:44] VITALS: BP 110/53
[2018-10-11 11:40] VITALS: BP 120/44
--- NOTE | 2018-10-11 15:31 | NUR ---
I have reviewed this patient and I concur with the Shift Assessment completed by the Licensed Practical Nurse today this shift.
[2018-10-11 15:46] VITALS: BP 118/56
--- NOTE | 2018-10-11 19:00 | NUR ---
PATIENT LAYING IN BED. NO COMPLAINTS AT THIS TIME. NO DISTRESS NOTED.
[2018-10-11 20:00] VITALS: BP 138/68
[2018-10-12] VITALS: BP 132/64
--- NOTE | 2018-10-12 00:18 | NUR ---
PATIENT LAYING IN BED. NO COMPLAINTS AT THIS TIME. NO DISTRESS NOTED.
[2018-10-12 04:00] VITALS: BP 124/57
[2018-10-12 05:11] LABS: BASOPHILS 0.3 % (0-2); HEMATOCRIT 30.4 % (42.0-54.0); HEMOGLOBIN 10.7 g/dL (13.5-17.5); IMMATURE GRANULOCYTES 0.3 % (0-5); LYMPHOCYTES 38.3 % (15-50); MCH 29.8 pg (26.0-34.0); MCHC 35.2 g/dL (31.0-37.0); MCV 84.7 fL (80.0-100.0); MEAN PLATELET VOLUME 8.4 fL (7.4-10.4); MONOCYTES 10.3 % (2-11); NEUTROPHILS 47.8 % (40-80); PLATELET COUNT 239 10x3/uL (130-400); RBC 3.59 10x6/uL (4.20-6.10); RDW 13.3 % (11.5-14.5)
[2018-10-12 05:47] LABS: ANION GAP 11.5 mmol/L (8-16); CALCIUM 7.4 mg/dL (8.5-10.1); CARBON DIOXIDE 25.4 mmol/L (21.0-32.0); CREATININE - SERUM 1.6 mg/dL (0.6-1.3)
[2018-10-12 06:00] LABS: POTASSIUM - SERUM 2.9 mmol/L (3.5-5.1)
--- NOTE | 2018-10-12 07:15 | NUR ---
AM ROUNDS COMPLETED. INTRODUCED MYSELF TO PT PRIMARY RN FOR TODAYS SHIFT. PT IS A&O SITTING UP ON EDGE OF BED READING. PT STATES HE HAD A GOOD NIGHT AND IS FEELING WELL OVERALL JUST HOPING TO DISCHARGE SOON. SHIFT ASSESSMENT COMPLETED. PTS POTASSIUM IS LOW AND HE IS SUPPOSE TO BE TREATED PER ELECTROLYTE PROTOCOL HOWEVER NO INDICATION OF MED BEING GIVEN WAS DONE. WILL TREAT ACCORDINGLY. PT HAS A R.GROIN DRAIN FROM IR THAT NIGHTSHIFT STATES WAS DRAINED HOWEVER PT HAS 125 IN THERE CURRENTLY SO I EMPTIED AND WILL REPORT TO IR TEAM. PT DENIES ANY CURRENT PAIN OR NEEDS AT THIS TIME. CL IN REACH, BED IN LOWEST, SIDE RAILS X2. WILL CTM.
[2018-10-12 08:18] VITALS: BP 136/59
--- NOTE | 2018-10-12 08:45 | NUR ---
MORNING MEDICATIONS GIVEN WITH WATER REQUESTED. PT SITTING UP EATING BREAKFAST. JUAN JONES RN AT BEDSIDE AND DISCUSSING PLAN OF CARE WITH IR TEAM. SAND BAG PLACED TO [facility] SITE TO TRY AND HELP REDUCE OUTPUT. PT VERBALIZED UNDERSTANDING. NO CURRENT NEEDS. WILL CTM.
--- NOTE | 2018-10-12 09:16 | NUR ---
DOSE 2/3 GIVEN OF POTASSIUM PER ELECTROLYTE PROTOCOL. WILL CONTINUE PLAN OF CARE.
--- NOTE | 2018-10-12 12:00 | NUR ---
FSBS 255 PROVIDED PT WITH INSULIN PER SS. PT LYING IN BED RESTING QUIETLY WITH SAND BAG STILL IN PLACE TO R.GROIN. PT DENIES ANY CURRENT PAIN OR NEEDS AT THIS TIME. CL IN REACH. WILL CTM.
[2018-10-12 12:39] VITALS: BP 142/62
--- NOTE | 2018-10-12 14:38 | NUR ---
PT LYING BACK IN BED RESTING QUIETLY WITH SAND BAG TO R.GROIN SITE. DRSG CDI BAG DRAINING TO GRAVITY. NO ISSUES NOTED AT SITE. PT REQUESTING SOME ICED TEA AND WAS PROVIDED WITH IT. PT VOICED THANKS AND DENIES ANY FURTHER NEEDS AT THIS TIME. CL IN REACH, BED IN LOWEST, SIDE RAILS X2. WILL CTM.
--- NOTE | 2018-10-12 16:35 | NUR ---
FSBS 146 NO COVERAGE REQUIRED PER SS. PT LYING BACK IN BED WATCHING TV RESTING QUIETLY. NO CURRENT NEEDS AT THIS TIME. WILL CTM.
[2018-10-12 16:50] VITALS: BP 130/63
--- NOTE | 2018-10-12 17:47 | NUR ---
EMPTIED 150ML OF SEROUS DRAINAGE FROM R.GROIN IR DRAIN. DRSG STILL CDI AND SAND BAG REPOSITIONED AFTER PT SAT UP TO EAT DINNER. PT DENIES ANY CURRENT PAIN OR NEEDS AT THIS TIME. CL IN REACH. WILL CPOC.
--- NOTE | 2018-10-12 18:36 | NUR ---
R.HAND PIV INFILTRATED. D/C WITH CATHETER TIP FULLY INTACT. NEW 22 GUAGE PIV INSERTED TO R.FA 22 GUAGE X2 STICKS. SL AND FLUSHED. PT DENIES ANY CURRENT NEEDS. WILL PASS ON IN SHIFT REPORT.
--- NOTE | 2018-10-12 18:44 | NUR ---
REDRAW POTASSIUM STILL LOW @3.4. PROVIDED PT WITH COVERAGE PER ELECTROLYTE PROTOCOL. NO FURTHER NEEDS.
--- NOTE | 2018-10-12 19:42 | NUR ---
PATIENT SITTING ON THE SIDE OF THE BED. NO COMPLAINTS AT THIS TIME. NO DISTRESS NOTED.
[2018-10-12 21:04] VITALS: BP 121/58
[2018-10-13 01:29] VITALS: BP 140/70
--- NOTE | 2018-10-13 02:45 | NUR ---
PATIENT LAYING IN BED. EYES CLOSED, CHEST RISING AND FALLING. NO DISTRESS NOTED.
[2018-10-13 04:41] LABS: BASOPHILS 0.3 % (0-2); EOSINOPHILS 4.1 % (0-7); HEMATOCRIT 30.5 % (42.0-54.0); HEMOGLOBIN 10.8 g/dL (13.5-17.5); LYMPHOCYTES 37.3 % (15-50); MCH 29.9 pg (26.0-34.0); MCHC 35.4 g/dL (31.0-37.0); MCV 84.5 fL (80.0-100.0); MONOCYTES 8.3 % (2-11); PLATELET COUNT 230 10x3/uL (130-400); RBC 3.61 10x6/uL (4.20-6.10); RDW 13.2 % (11.5-14.5); WBC 5.9 10x3/uL (4.8-10.8)
[2018-10-13 04:54] LABS: ANION GAP 9.1 mmol/L (8-16); CALCIUM 7.5 mg/dL (8.5-10.1); CARBON DIOXIDE 26.4 mmol/L (21.0-32.0); CREATININE - SERUM 1.7 mg/dL (0.6-1.3); POTASSIUM - SERUM 3.5 mmol/L (3.5-5.1)
--- NOTE | 2018-10-13 06:12 | NUR ---
I have reviewed this patient and I concur with the Shift Assessment completed by the Licensed Practical Nurse today this shift.
--- NOTE | 2018-10-13 08:00 | NUR ---
SITTING UP ON SIDE OF BED TALKING ON PHONE. DENIES ANY PAIN OR DISCOMFORT AND NO REQUESTS VOICED. APD DRAIN PATENT TO RIGHT GROIN AND DRAINING CLEAR LIQUID. ASSESSMENT COMPLETED AND WILL CONTINUE POC.
[2018-10-13 08:13] VITALS: BP 108/54
--- NOTE | 2018-10-13 11:28 | NUR ---
I have reviewed this patient and I concur with the Shift Assessment completed by the Licensed Practical Nurse today this shift.
[2018-10-13 11:45] VITALS: BP 132/64
[2018-10-13 16:29] VITALS: BP 134/70
[2018-10-13 20:00] VITALS: BP 133/51
--- NOTE | 2018-10-13 20:00 | NUR ---
PATIENT RECEIVED SITTING UP IN BED WATCHING TV. ASSESSMENT & VITAL SIGNS DONE. PATIENT HAD NO C/O PAIN OR DISTRESS. PATIENT BED LOW. CALL LIGHT WITHIN REACH. PATIENT HAT IN COMMODE TO CATCH STOOL SAMPLE. WILL CONTINUE TO MONITOR.
--- NOTE | 2018-10-14 02:23 | NUR ---
PATIENT SCHEDULED LASIX GIVEN PER ORDER BY FLOOR HILDA LEE.PATIENT TOLERATED IT WELL. CALL LIGHT WITHIN REACH. WILL CONTINUE TO MONITOR.
[2018-10-14 04:00] VITALS: BP 116/50
--- NOTE | 2018-10-14 04:37 | NUR ---
I have reviewed this patient and I concur with the Shift Assessment completed by the Licensed Practical Nurse today this shift.
[2018-10-14 04:45] LABS: BASOPHILS 0.4 % (0-2); EOSINOPHILS 4.2 % (0-7); HEMATOCRIT 30.1 % (42.0-54.0); HEMOGLOBIN 10.8 g/dL (13.5-17.5); IMMATURE GRANULOCYTES 0.2 % (0-5); LYMPHOCYTES 40.6 % (15-50); MCH 29.9 pg (26.0-34.0); MCHC 35.9 g/dL (31.0-37.0); MCV 83.4 fL (80.0-100.0); MEAN PLATELET VOLUME 8.1 fL (7.4-10.4); MONOCYTES 10.6 % (2-11); PLATELET COUNT 216 10x3/uL (130-400); RBC 3.61 10x6/uL (4.20-6.10); RDW 13.2 % (11.5-14.5); WBC 5.7 10x3/uL (4.8-10.8)
[2018-10-14 05:02] LABS: ANION GAP 10.2 mmol/L (8-16); CALCIUM 7.6 mg/dL (8.5-10.1); CARBON DIOXIDE 25.1 mmol/L (21.0-32.0); CREATININE - SERUM 1.4 mg/dL (0.6-1.3); POTASSIUM - SERUM 3.3 mmol/L (3.5-5.1)
--- NOTE | 2018-10-14 07:32 | NUR ---
PT AWAKE AND ORIENTED, SITTING ON THE SIDE OF BED. PT STATES HE'S BEEN HERE SO LONG HE'S ALREADY PLANNING OUT HIS MENUE FOR THE DAY. PT IS IN PLESANT/GOOD MOOD. STATES HE'S HAVING ANOTHER PROCEDURE TUESDAY THEN MAYBE HE'LL GET OUT OF HERE EVENTUALLY. LL DRAIN PATENT, DRAINAGE CLEAR. NO COMPLAINTS/CONCERNS/QUESTIONS VOICED THIS MORNING. CL IN REACH, SRX2.
[2018-10-14 08:33] VITALS: BP 124/56
[2018-10-14 12:16] VITALS: BP 121/55
--- NOTE | 2018-10-14 14:13 | NUR ---
I have reviewed this patient and I concur with the Shift Assessment completed by the Licensed Practical Nurse today this shift.
[2018-10-14 15:45] VITALS: BP 128/69
--- NOTE | 2018-10-14 19:47 | NUR ---
PT SITTING UP IN BED ALERT AND ORIENTED X4. NO S/S OF DISTRESS. PT DENIES ANY PAIN OR NEEDS AT THIS TIME. VISITORS IN PT ROOM PLAYING GUITAR AND SINGING. PT IS ENJOYING THE COMPANY. BED LOW CALL LIGHT WITHIN REACH. WILL CONTINUE TO MONITOR.
[2018-10-14 20:22] VITALS: BP 112/53
--- NOTE | 2018-10-15 01:52 | NUR ---
PT RESTING IN BED WITH EYES CLOSED. RR EVEN AND UNLABORED. NO S/S OF DISTRESS. BED LOW CALL LIGHT WITHIN REACH. WILL CONTINUE TO MONITOR. DRAINED 200ML OF CLEAR FLUISD FROM ABD DRAIN FROM RIGHT GROIN.
--- NOTE | 2018-10-15 03:17 | NUR ---
I have reviewed this patient and I concur with the Shift Assessment completed by the Licensed Practical Nurse today this shift.
--- NOTE | 2018-10-15 03:36 | NUR ---
PT RESTING WITH EYES CLOSED. RR EVEN AND LABORED NO S/S OF DISTRESS. BED LOW CALL LIGHT WITHIN REACH. WILL CONTINUE TO MONITOR.
[2018-10-15 05:05] LABS: BASOPHILS 0.4 % (0-2); EOSINOPHILS 3.9 % (0-7); HEMATOCRIT 29.7 % (42.0-54.0); HEMOGLOBIN 10.7 g/dL (13.5-17.5); LYMPHOCYTES 39.3 % (15-50); MCV 83.2 fL (80.0-100.0); MEAN PLATELET VOLUME 8.1 fL (7.4-10.4); MONOCYTES 10.8 % (2-11); NEUTROPHILS 45.6 % (40-80); PLATELET COUNT 207 10x3/uL (130-400); RBC 3.57 10x6/uL (4.20-6.10); RDW 13.2 % (11.5-14.5); WBC 4.8 10x3/uL (4.8-10.8)
[2018-10-15 05:31] LABS: ALBUMIN 1.2 g/dL (3.4-5.0); ANION GAP 11.4 mmol/L (8-16); BILIRUBIN - TOTAL 0.13 mg/dL (0.2-1.3); CALCIUM 7.6 mg/dL (8.5-10.1); CARBON DIOXIDE 25.7 mmol/L (21.0-32.0); CREATININE - SERUM 1.4 mg/dL (0.6-1.3); POTASSIUM - SERUM 3.1 mmol/L (3.5-5.1)
[2018-10-15 05:38] VITALS: BP 116/54
--- NOTE | 2018-10-15 05:46 | NUR ---
EP K+ 3.1 TREATED WITH 40MEQ. LAB DRAW PUT IN FOR 944. WILL CONTINUE TO MONITOR.
--- NOTE | 2018-10-15 07:30 | NUR ---
PT AWAKE AND ORIENTED, SITTING ON SIDE OF BED WAITING ON HIS BREAKFAST. REQUETED PEANUT BUTTER AND COFFEE TO HAVE WITH THE PANCAKES HE ORDERED. PT STATES HE SLEPT WELL LAST NIGHT AND HE'S ANXIOUS OT GET HIS PROCEDURE OVER WITH TOMORROW SO HE CAN EVENTUALLY LEAVE. NO COMPLAINTS/CONCERNS/COMMENTS/QUESTIONS THIS MORNING. CL IN REACH, ROOM FREE OF CLUTTER.
[2018-10-15 08:31] VITALS: BP 115/76
--- NOTE | 2018-10-15 10:41 | NUR ---
I have reviewed this patient and I concur with the Shift Assessment completed by the Licensed Practical Nurse today this shift.
[2018-10-15 12:06] VITALS: BP 105/45
[2018-10-15 15:04] VITALS: BP 121/65
[2018-10-15 20:00] VITALS: BP 119/58
--- NOTE | 2018-10-15 20:07 | NUR ---
PT LAYING IN BED ALERT AND ORIENTED X4. RR EVEN AND UNLABORED. FRIENDS AT BEDSIDE. PT DENIES ANY PAIN OR NEEDS AT THIS TIME. BED LOW CALL LIGHT WITHIN REACH. WILL CONTINUE TO MONITOR.
[2018-10-16] VITALS: BP 113/59
--- NOTE | 2018-10-16 03:04 | NUR ---
DRAINED 175ML OFF R. GROIN AB DRAIN.
--- NOTE | 2018-10-16 03:57 | NUR ---
I have reviewed this patient and I concur with the Shift Assessment completed by the Licensed Practical Nurse today this shift.
[2018-10-16 04:00] VITALS: BP 132/59
[2018-10-16 05:39] LABS: BASOPHILS 0.5 % (0-2); EOSINOPHILS 3.9 % (0-7); HEMATOCRIT 32.6 % (42.0-54.0); HEMOGLOBIN 11.7 g/dL (13.5-17.5); IMMATURE GRANULOCYTES 0.2 % (0-5); MCH 29.9 pg (26.0-34.0); MCHC 35.9 g/dL (31.0-37.0); MCV 83.4 fL (80.0-100.0); MEAN PLATELET VOLUME 8.6 fL (7.4-10.4); NEUTROPHILS 43.4 % (40-80); PLATELET COUNT 234 10x3/uL (130-400); RBC 3.91 10x6/uL (4.20-6.10); RDW 13.3 % (11.5-14.5); WBC 5.6 10x3/uL (4.8-10.8)
[2018-10-16 06:14] LABS: INR 1.01 (0.85-1.17); PROTIME 12.8 SECONDS (11.6-15.0)
[2018-10-16 06:18] LABS: ALBUMIN 1.4 g/dL (3.4-5.0); ANION GAP 12.3 mmol/L (8-16); BILIRUBIN - TOTAL 0.08 mg/dL (0.2-1.3); CALCIUM 7.9 mg/dL (8.5-10.1); CARBON DIOXIDE 26.2 mmol/L (21.0-32.0); CREATININE - SERUM 1.4 mg/dL (0.6-1.3); POTASSIUM - SERUM 3.5 mmol/L (3.5-5.1); PROTEIN - SERUM 5.6 g/dL (6.4-8.2)
--- NOTE | 2018-10-16 07:49 | NUR ---
PT AWAKE AND ORIENTED, SITTING IN CHAIR BESIDE BED. STATES HE FEELS PRETTY GOOD AND IS READY TO GET HIS PROCEDURE OVER WITH THIS MORNING. UNSURE WHAT TIME HE WILL GO, PT UNDERSTANDS. NO COMPLAINTS/CONCERNS/QUESTIONS AT THIS TIME. NO DISTRESS REPORTED OR NOTED. CL IN REACH.
[2018-10-16 09:04] VITALS: BP 131/61
--- NOTE | 2018-10-16 12:53 | NUR ---
I have reviewed this patient and I concur with the Shift Assessment completed by the Licensed Practical Nurse today this shift.
--- NOTE | 2018-10-16 13:42 | NUR ---
Nutrition follow-up: Diet: ADA consistent CHO PO intake 100% of most meals Pt currently NPO for procedure Labs reviewed Last BM charted 10/05 Wt: 193# RDN following.
[2018-10-16 17:08] VITALS: BP 141/65
[2018-10-16 18:38] VITALS: BP 119/64
--- NOTE | 2018-10-16 19:44 | NUR ---
SITTING UP ON BEDSIDE AND DENIES NEEDS CALL LIGHT IN REACH AND BED IS LOW AND LOCKED ALERT AND OX4 DRAIN TO GRAVITY. LCTA SKIN WARM AND DRY AND BOWEL SOUNDS X4
[2018-10-16 20:00] VITALS: BP 129/65
[2018-10-17] VITALS: BP 105/55
[2018-10-17 04:00] VITALS: BP 127/59
--- NOTE | 2018-10-17 04:21 | NUR ---
I have reviewed this patient and I concur with the Shift Assessment completed by the Licensed Practical Nurse today this shift.
[2018-10-17 04:48] LABS: BASOPHILS 0.4 % (0-2); EOSINOPHILS 3.5 % (0-7); HEMOGLOBIN 11.1 g/dL (13.5-17.5); IMMATURE GRANULOCYTES 0.2 % (0-5); LYMPHOCYTES 45.2 % (15-50); MCH 30.2 pg (26.0-34.0); MCHC 35.8 g/dL (31.0-37.0); MCV 84.2 fL (80.0-100.0); MEAN PLATELET VOLUME 8.3 fL (7.4-10.4); MONOCYTES 11.5 % (2-11); NEUTROPHILS 39.2 % (40-80); PLATELET COUNT 224 10x3/uL (130-400); RBC 3.68 10x6/uL (4.20-6.10); RDW 13.3 % (11.5-14.5); WBC 5.2 10x3/uL (4.8-10.8)
[2018-10-17 05:24] LABS: ALBUMIN 1.3 g/dL (3.4-5.0); ANION GAP 8.6 mmol/L (8-16); BILIRUBIN - TOTAL 0.11 mg/dL (0.2-1.3); CALCIUM 7.8 mg/dL (8.5-10.1); CARBON DIOXIDE 27.9 mmol/L (21.0-32.0); CREATININE - SERUM 1.6 mg/dL (0.6-1.3); POTASSIUM - SERUM 3.5 mmol/L (3.5-5.1); PROTEIN - SERUM 5.3 g/dL (6.4-8.2)
[2018-10-17 08:20] VITALS: BP 122/53
[2018-10-17 12:31] VITALS: BP 104/33
--- NOTE | 2018-10-17 13:21 | NUR ---
RESTS IN BED WITH EYES CLOSED. DRAIN INTACT TO RITHT GROIN. DRSG CDI. CALL LIGHT IN REACH. WILL CONT. PLAN OF CARE.
--- NOTE | 2018-10-17 19:25 | NUR ---
SITTING UP ON SIDE OF BED AND DENIES NEEDS AT THIS TIME. SKIN WARM AND DRY LCTA DRAIN TO GRAVITY ON RT SIDEBED IS LOW AND LOCKED AND CALL LIGHT IN REACH
[2018-10-17 20:00] VITALS: BP 118/52
[2018-10-18] VITALS: BP 128/56
--- NOTE | 2018-10-18 02:33 | NUR ---
I have reviewed this patient and I concur with the Shift Assessment completed by the Licensed Practical Nurse today this shift.
[2018-10-18 04:00] VITALS: BP 121/55
[2018-10-18 06:36] LABS: BASOPHILS 0.3 % (0-2); EOSINOPHILS 4.2 % (0-7); HEMATOCRIT 31.2 % (42.0-54.0); IMMATURE GRANULOCYTES 0.2 % (0-5); LYMPHOCYTES 40.6 % (15-50); MCH 30.1 pg (26.0-34.0); MCHC 35.3 g/dL (31.0-37.0); MCV 85.5 fL (80.0-100.0); MEAN PLATELET VOLUME 8.3 fL (7.4-10.4); MONOCYTES 7.3 % (2-11); NEUTROPHILS 47.4 % (40-80); PLATELET COUNT 233 10x3/uL (130-400); RBC 3.65 10x6/uL (4.20-6.10); RDW 13.4 % (11.5-14.5); WBC 5.7 10x3/uL (4.8-10.8)
[2018-10-18 07:15] LABS: ALBUMIN 1.4 g/dL (3.4-5.0); ANION GAP 12.1 mmol/L (8-16); BILIRUBIN - TOTAL 0.13 mg/dL (0.2-1.3); CALCIUM 7.7 mg/dL (8.5-10.1); CARBON DIOXIDE 24.4 mmol/L (21.0-32.0); CREATININE - SERUM 1.5 mg/dL (0.6-1.3); POTASSIUM - SERUM 3.5 mmol/L (3.5-5.1); PROTEIN - SERUM 5.4 g/dL (6.4-8.2)
[2018-10-18 09:23] VITALS: BP 115/56
--- NOTE | 2018-10-18 10:29 | NUR ---
UP SOB WITH CALL LIGHT IN REACH. DRAIN INTACT TO RIGHT GROIN WITH CLEAR OP NOTED. WILL CONT. PLAN OF CARE.
[2018-10-18 13:18] VITALS: BP 132/63
[2018-10-18 18:58] VITALS: BP 127/57
--- NOTE | 2018-10-18 19:52 | NUR ---
EVENING ROUNDS COMPLETED. VSS, AAOX4, NO S/S OF DISTRESS. PATIENT LIAISON @ BEDSIDE. PT NPO AFTER MIDNIGHT FOR FLUOROSCOPY GUIDED SCLEROSING OF RIGHT LYMPHOCELE. PT DENIES ANY FURTHER NEEDS AT THIS TIME. WILL CPOC. CL WITHIN REACH.
[2018-10-18 20:00] VITALS: BP 148/67
[2018-10-19] VITALS (7 sets, daily range): BP systolic 113–152; BP diastolic 51–62
--- NOTE | 2018-10-19 05:19 | NUR ---
DRAIN OUTPUT 200CC'S. DRAINAGE SITE/RIGHT GROIN DRESSING C/D/I. WILL CPOC.
--- NOTE | 2018-10-19 06:36 | NUR ---
FSBS 127 INSULIN NOT GIVEN PER SLIDING SCALE. CONSENT FOR PROCEDURE SIGNED.
[2018-10-19 06:50] LABS: BASOPHILS 0.3 % (0-2); EOSINOPHILS 4.1 % (0-7); HEMATOCRIT 30.8 % (42.0-54.0); HEMOGLOBIN 10.7 g/dL (13.5-17.5); IMMATURE GRANULOCYTES 0.2 % (0-5); LYMPHOCYTES 34.8 % (15-50); MCH 29.6 pg (26.0-34.0); MCHC 34.7 g/dL (31.0-37.0); MCV 85.3 fL (80.0-100.0); MEAN PLATELET VOLUME 8.4 fL (7.4-10.4); MONOCYTES 10.4 % (2-11); NEUTROPHILS 50.2 % (40-80); PLATELET COUNT 236 10x3/uL (130-400); RBC 3.61 10x6/uL (4.20-6.10); RDW 13.1 % (11.5-14.5); WBC 6.5 10x3/uL (4.8-10.8)
[2018-10-19 07:09] LABS: ALBUMIN 1.4 g/dL (3.4-5.0); ANION GAP 11.7 mmol/L (8-16); BILIRUBIN - TOTAL 0.08 mg/dL (0.2-1.3); CALCIUM 7.7 mg/dL (8.5-10.1); CARBON DIOXIDE 24.9 mmol/L (21.0-32.0); CREATININE - SERUM 1.5 mg/dL (0.6-1.3); POTASSIUM - SERUM 3.6 mmol/L (3.5-5.1); PROTEIN - SERUM 5.3 g/dL (6.4-8.2)
[2018-10-19 07:26] LABS: INR 0.99 (0.85-1.17); PROTIME 12.6 SECONDS (11.6-15.0)
--- NOTE | 2018-10-19 08:52 | NUR ---
PT RESTING IN BED. SHIFT ASSESSMENT PERFORMED. DENIES ANY PAIN AT THIS TIME, DENIES ANY FURTHER NEEEDS AT THIS TIME, WILL CONT TO FOLLOW POC
--- NOTE | 2018-10-19 09:25 | NUR ---
EMPTIED 100ML OUT OF IR DRAIN
--- NOTE | 2018-10-19 09:34 | NUR ---
IVR HERE TO TAKE PT
--- NOTE | 2018-10-19 10:30 | NUR ---
PT RETURNED FROM IVR, PT RECIEVED ONLY LOCAL ANESTHETIC. VSS AND WNL. WILL CONT TO FOLLOW POC
--- NOTE | 2018-10-19 12:06 | NUR ---
PT SITTING ON SIDE OF BED EATING LUNCH, DENIES ANY NEEDS AT THIS TIME, WILL CONT TO FOLLOW POC
--- NOTE | 2018-10-19 13:09 | NUR ---
Nutrition Follow Up: Chart reviewed Diet: ADA PO Intake: 86% meal avg Wt loss noted - r/t fluid Meds and labs noted Rec continue current diet. RD following.
--- NOTE | 2018-10-19 13:21 | NUR ---
20g CATH PLACED IN UPPER RIGHT ARM X 2 STICKS. FLUSHED WITH 5 ML OF NORMAL SALINE. RECEIVED BLOOD RETURN. PLACED OPSITE OVER CATHETER AND TAPED IN PLACE WITH MEDIPORE TAPE.
--- NOTE | 2018-10-19 13:26 | NUR ---
PIV TO RIGHT FA REMOVED WITH CATHETER TIP INTACT
--- NOTE | 2018-10-19 17:06 | NUR ---
PT RESTING IN BED, DENIES ANY NEEDS AT THIS TIME, WILL CONT TO FOLLOW POC
--- NOTE | 2018-10-19 19:40 | NUR ---
RESUMING CARE, PT SITTING UP ON SIDE OF BED A&O , RT UPPER ARM IV SL , IR DRAIN IN PLACE , NO C/O PAIN OR DISTRESS AT THIS TIME CL IN REACH WILL CONT TO MONITOR
[2018-10-20 04:03] VITALS: BP 156/61
[2018-10-20 06:38] LABS: BASOPHILS 0.4 % (0-2); EOSINOPHILS 2.8 % (0-7); HEMATOCRIT 30.7 % (42.0-54.0); HEMOGLOBIN 10.7 g/dL (13.5-17.5); IMMATURE GRANULOCYTES 0.2 % (0-5); LYMPHOCYTES 18.6 % (15-50); MCH 29.4 pg (26.0-34.0); MCHC 34.9 g/dL (31.0-37.0); MCV 84.3 fL (80.0-100.0); MEAN PLATELET VOLUME 8.2 fL (7.4-10.4); MONOCYTES 7.6 % (2-11); NEUTROPHILS 70.4 % (40-80); PLATELET COUNT 224 10x3/uL (130-400); RBC 3.64 10x6/uL (4.20-6.10); RDW 13.1 % (11.5-14.5); WBC 5.4 10x3/uL (4.8-10.8)
[2018-10-20 06:48] LABS: ANION GAP 11.9 mmol/L (8-16); CALCIUM 7.9 mg/dL (8.5-10.1); CARBON DIOXIDE 22.9 mmol/L (21.0-32.0); POTASSIUM - SERUM 3.8 mmol/L (3.5-5.1)
[2018-10-20 06:49] LABS: CREATININE - SERUM 1.1 mg/dL (0.6-1.3)
--- NOTE | 2018-10-20 07:35 | NUR ---
ROUNDING DONE WITH PATIENT COMING OUT OF RESTROOM, STATES HE ONLY EMPTIED HIS BLADDER. INFORMED HIM THAT WE ARE NEEDING A STOOL SAMPLE. STATES TO UNDERSTANDING. ON HEART MONITOR SHOWING SR, HR 99. IR DRAINAGE BAG SEEN TO LEFT UPPER THIGH AREA. RIGHT UPPER ARM PIV SALINE LOCK SEEN. ON EP, K+ IS 3.8.
[2018-10-20 08:54] VITALS: BP 122/58
--- NOTE | 2018-10-20 11:10 | NUR ---
PER VICENTE GUERRERO, TOP TAPER MACHINE PATIENT TOLD HER THAT HE HAS HAD SOME SLIGHT NAUSEA. WHEN I ASKED HIM IF HE WANTED SOMETHING FOR IT, HE DENIED NEEDING MEDICATION. I ASKED TO PLEASE LET ME KNOW IF HE NEEDS SOME, THAT WE CAN CERTAINLY GIVE IT TO HIM. HE SAID,"THANK YOU FOR CARING AND I WILL LET YOU KNOW".
[2018-10-20 12:12] VITALS: BP 132/57
--- NOTE | 2018-10-20 12:52 | NUR ---
PATIENT STILL DOES NOT WANT ME TO DO HIS ASSESSMENT. WANTS ME TO COME BACK. DENIES ANY NEEDS AT THIS TIME.
--- NOTE | 2018-10-20 14:19 | NUR ---
FLUID FROM THE RIGHT GROIN DRAINAGE BAG SENT TO LAB ORDERED.
[2018-10-20 15:13] LABS: CHOLESTEROL - BODY FLUID 5 mg/dL
[2018-10-20 15:14] LABS: TRIGLYCERIDE - BODY FLUID 0 mg/dL
[2018-10-20] MEDS ORDERED: LISINOPRIL10 MG PO (15:41)
--- NOTE | 2018-10-20 16:11 | NUR ---
UA SENT TO LAB ORDERED.
[2018-10-20 16:15] VITALS: BP 153/63
[2018-10-20 16:27] LABS: APPEARANCE CLEAR (CLEAR); BILIRUBIN NEGATIVE (NEGATIVE); COLOR YELLOW (YELLOW); GLUCOSE 250 mg/dL (NEGATIVE); KETONE NEGATIVE (NEGATIVE); NITRITE NEGATIVE (NEGATIVE); PROTEIN 3+ mg/dL (NEGATIVE); UROBILINOGEN NORMAL (NORMAL)
[2018-10-20 16:29] LABS: BACTERIA FEW /hpf (NONE SEEN); EPITHELIAL CELLS NSEEN /hpf (0-5)
--- NOTE | 2018-10-20 16:34 | MORECARE ---
CASE MANAGEMENT DISCHARGE SUMMARY PATIENT: CAROLE MCKENNA UNIT: [id number] ADM DATE: 09/15/18 AGE: 63 : 57 SEX: M ROOM/BED: D.2112 AUTHOR: MEGHAN SMALL PHYSICIAN: REFERRING PHYSICIAN: GILLIAN WILSON MD DATE OF SERVICE: 10/20/18 Discharge Plan Patient Name: CAROLE MCKENNA Facility: [facility]:[place] : 1955 Planned Disposition: Home with Home Health Anticipated Discharge Date: 10/20/18 Discharge Date: Expected LOS: 35 Initial Reviewer: [email or web address] Initial Review Date: 09/15/2018 Generated: 10/20/18 5:34 pm DCP- Discharge Planning Updated by [email or web address]: Javier Vincent on 09/27/18 1:[address] Patient Name: CAROLE MCKENNA Encounter No: [id number] : 1955 Primary Insurance: MEDICARE A & B Anticipated DC Date: 09-27-2018 Planned Disposition: Home with Home Health External Planned Provider: [facility] DCP follow-up note: CM, RECEIVED ORDER FOR "HOMELESS". CM MET WITH PT IN ROOM TO DISCUSS DISCHARGE NEEDS AND PLANNING. CM DISCUSSED AVAILABILITY OF HOME HEALTH, REHAB SERVICES AND MEDICAL EQUIPMENT. PT STATES THAT IF HE NEEDS HOME HEALTH, HE WANTS HOME HEALTH WITH [facility] OUT OF [place]. HE HAS USED THEM IN THE PAST. PT REPORTS HE WILL BE STAYING WITH HIS EX AT: [address] [place] [address]. [address], PHONE [phone]. PT DRIVING HOME AT DISCHARGE. IMPORTANT MESSAGE FROM MEDICARE PROVIDED AND EXPLAINED. CHOICE FOR [facility] SIGNED. CM TO FOLLOW AND ASSIST NEEDED. CM TO ARRANGE HOME HEALTH WITH [facility] IN [place] IF PHYSICIAN AGREES AND PROVIDES HOME HEALTH ORDERS. MARSHALL Valadez DCP- Discharge Planning Updated by [id number]: Javier Vincent on 09/19/18 3:[address] Patient Name: CAROLE MCKENNA Admission Status: ER Accout number: [id number] Admission Date: 09-15-2018 : 1955 Admission Diagnosis:EDEMA, UNSPECIFIED Attending: SINTIA WILSON Current LOS: 4 Anticipated DC Date: 09-20-2018 Planned Disposition: Home Primary Insurance: MEDICARE A & B Discharge Planning Comments: CM MET WITH PT IN ROOM TO DISCUSS DISCHARGE PLANNING AND NEEDS. PT REPORTS BEING HOMELESS AND LIVING IN HIS CAR, INDEPENDENTLY AND ALONE. PT HAS A CANE WITH NO MEDICAL EQUIPMENT PROVIDER PREFERENCE. PT HAS NO OUTSIDE SERVICES ASSISTING IN THE HOME. CM DISCUSSED AVAILABILITY OF HOME HEALTH, REHAB SERVICES AND MEDICAL EQUIPMENT. PT DENIES DISCHARGE NEEDS, REPORTS HIS CAR IS IN THE PARKING LOT FOR DISCHARGE PT DROVE HIMSELF TO THE HOSPITAL. PT IS SAVING TO RENT A PLACE IN THE FUTURE AND THINKS THAT $400 FOR SUBSUDIZED APARTMENT WITH GOVERNMENT HOUSING IS "TOO MUCH TO PAY". PT REPORTS BEING ON THE GOVERNMENT HOUSING WAITING LIST. PT BUYS BOTTLED WATER AND USES [employer] [facility]IT[employer] FOR SHOWER AND BATHROOM. PT DENIES DISCHARGE NEEDS AT THIS TIME. PT IS DISCHARGING HOMELESS AND LIVES IN HIS CARE, DENIES DISCHARGE NEEDS AT THIS TIME. CM TO FOLLOW AND ASSIST IF NEEDED. Ruling Machine Set Up Operator: Javier Vincent [facility] - Discharge Planning Initial Assessment Updated by [id number]: Javier Vincent on 09/19/18 4:02 pm * Is the patient Alert and Oriented? Yes * How many steps to enter\\exit or inside your home? NONE * PCP DR[facility] ELLE MORALES IN [facility] * Pharmacy [facility] IN [facility] * Preadmission Environment Homeless * Other Environment LIVING IN CAR * Facility Name NONE * ADLs Independent * Equipment Cane * Other Equipment NO MEDICAL EQUIPMENT PROVIDER PREFERENCE * List name and contact numbers for known caregivers / representatives who currently or will assist patient after discharge: LAYLA MITCHELL, SISTER, * Verbal permission to speak to the caregivers and representatives has been obtained from the patient. N/A * Community resources currently utilized None * Please name any agencies selected above. NONE * Additional services required to return to the preadmission environment? No * Can the patient safely return to the preadmission environment? Yes * Has this patient been hospitalized within the prior 30 days at any hospital? No Coverage Notice Reviewer: [id number] - Javier Vincent Notice Issued Date-Time: 09/27/2018 12:40 Notice Type: IM Discharge Notice Notice Delivered To: Patient Relationship to Patient: Roll Out Manager Name: Delivery Method: HAND - Hand Delivered Racheal Days: Prior Verbal Notification: Recipient Understood Notice: Yes Recipient Signature: Yes Med Rec Note Co-signed by Attending: Coverage Notice Comment: Reviewer: [id number] - Javier Vincent Notice Issued Date-Time: 09/27/2018 12:40 Notice Type: Patient Choice Letter Notice Delivered To: Patient Relationship to Patient: Roll Out Manager Name: Delivery Method: HAND - Hand Delivered Racheal Days: Prior Verbal Notification: Recipient Understood Notice: Yes Recipient Signature: Yes Med Rec Note Co-signed by Attending: Coverage Notice Comment: [facility] Last DP export: 10/09/18 7:24 a Patient Name: CAROLE MCKENNA Page [id number] at 1634 All edits/amendments must be made on the electronic document DICTATION DATE: 10/20/181632 POST SECONDARY PROFESSIONAL: ALEJANDRA 10/20/181632 RPT#: [id number] DC DATE: STATUS: ADM IN [facility] [address] [place] [address] END OF REPORT
--- NOTE | 2018-10-20 16:42 | MORECARE ---
CASE MANAGEMENT DISCHARGE SUMMARY PATIENT: CAROLE MCKENNA UNIT: [id number] ADM DATE: 09/15/18 AGE: 63 : 57 SEX: M ROOM/BED: D.2112 AUTHOR: MEGHAN SMALL PHYSICIAN: REFERRING PHYSICIAN: GILLIAN WILSON MD DATE OF SERVICE: 10/20/18 Discharge Plan Patient Name: CAROLE MCKENNA Facility: [facility]:[place] : 1955 Planned Disposition: Home with Home Health Anticipated Discharge Date: 10/20/18 Discharge Date: Expected LOS: 35 Initial Reviewer: [id number] Initial Review Date: 09/15/2018 Generated: 10/20/18 5:42 pm Comments DCP- Discharge Planning Updated by [email or web address]: Javier Vincent on 10/20/18 3:[address] Patient Name: CAROLE MCKENNA Encounter No: [id number] : 1955 Primary Insurance: MEDICARE A & B Anticipated DC Date: 10-20-2018 Planned Disposition: Home with Home Health External Planned Provider[facility] DCP follow-up note: CM, RECEIVED ORDER FOR HOME HEALTH, MET WITH PT WHO IS IN AGREEMENT WITH DISCHARGE, WANTS [facility] AND IS STILL GOING TO HIS EX WIFES HOME LOCATED AT: [address] [place] [address]. [address], PHONE [phone]. PT DRIVING HOME AT DISCHARGE. IMPORTANT MESSAGE FROM MEDICARE PROVIDED AND EXPLAINED. CHOICE FOR [facility] PREVIOUSLY SIGNED. CM CALLED [facility] OFFICE, , SPOKE TO [facility] WHO ACCEPTED REFERRAL FOR HOME HEALTH CM FAXED REFERRAL TO [facility] AT [phone]. [facility] [phone]. [facility] TO ADMIT TOMORROW FOR HOME HEALTH. DR. SHARPE NOTIFIED. Javier Vincent, CASE MANAGEMENT DCP- Discharge Planning Updated by [id number]: Javier Vincent on 09/27/18 1:[address] Patient Name: CAROLE MCKENNA Encounter No: [id number] : 1955 Primary Insurance: MEDICARE A & B Anticipated DC Date: 09-27-2018 Planned Disposition: Home with Home Health External Planned Provider: [facility], [place] DC follow-up note: CM, RECEIVED ORDER FOR "HOMELESS". CM MET WITH PT IN ROOM TO DISCUSS DISCHARGE NEEDS AND PLANNING. CM DISCUSSED AVAILABILITY OF HOME HEALTH, REHAB SERVICES AND MEDICAL EQUIPMENT. PT STATES THAT IF HE NEEDS HOME HEALTH, HE WANTS HOME HEALTH WITH [facility] OUT OF [place]. HE HAS USED THEM IN THE PAST. PT REPORTS HE WILL BE STAYING WITH HIS EX AT: [address] [place]. [address], PHONE [phone]. PT DRIVING HOME AT DISCHARGE. IMPORTANT MESSAGE FROM MEDICARE PROVIDED AND EXPLAINED. CHOICE FOR [facility] SIGNED. CM TO FOLLOW AND ASSIST NEEDED. CM TO ARRANGE HOME HEALTH WITH [facility] IN [place] IF PHYSICIAN AGREES AND PROVIDES HOME HEALTH ORDERS. Javier Vincent, CASE MANAGEMENT DCP- Discharge Planning Updated by [id number]: Javier Vincent on 09/19/18 3:[address] Patient Name: CAROLE MCKENNA Admission Status: ER Accout number: [id number] Admission Date: 09-15-2018 : 1955 Admission Diagnosis:EDEMA, UNSPECIFIED Attending: SINTIA WILSON Current LOS: 4 Anticipated DC Date: 09-20-2018 Planned Disposition: Home Primary Insurance: MEDICARE A & B Discharge Planning Comments: CM MET WITH PT IN ROOM TO DISCUSS DISCHARGE PLANNING AND NEEDS. PT REPORTS BEING HOMELESS AND LIVING IN HIS CAR, INDEPENDENTLY AND ALONE. PT HAS A CANE WITH NO MEDICAL EQUIPMENT PROVIDER PREFERENCE. PT HAS NO OUTSIDE SERVICES ASSISTING IN THE HOME. CM DISCUSSED AVAILABILITY OF HOME HEALTH, REHAB SERVICES AND MEDICAL EQUIPMENT. PT DENIES DISCHARGE NEEDS, REPORTS HIS CAR IS IN THE PARKING LOT FOR DISCHARGE PT DROVE HIMSELF TO THE HOSPITAL. PT IS SAVING TO RENT A PLACE IN THE FUTURE AND THINKS THAT $400 FOR SUBSUDIZED APARTMENT WITH GOVERNMENT HOUSING IS "TOO MUCH TO PAY". PT REPORTS BEING ON THE GOVERNMENT HOUSING WAITING LIST. PT BUYS BOTTLED WATER AND USES [employer] FACILITIES FOR SHOWER AND BATHROOM. PT DENIES DISCHARGE NEEDS AT THIS TIME. PT IS DISCHARGING HOMELESS AND LIVES IN HIS CARE, DENIES DISCHARGE NEEDS AT THIS TIME. CM TO FOLLOW AND ASSIST IF NEEDED. Receiving Coordinator: Javier Vincent DCPIA - Discharge Planning Initial Assessment Updated by [id number]: Javier Vincent on 09/19/18 4:02 pm * Is the patient Alert and Oriented? Yes * How many steps to enter\\exit or inside your home? NONE * PCP DR[facility] MORALES IN [facility] * Pharmacy [facility] IN [facility] * Preadmission Environment Homeless * Other Environment LIVING IN CAR * Facility Name NONE * ADLs Independent * Equipment Cane * Other Equipment NO MEDICAL EQUIPMENT PROVIDER PREFERENCE * List name and contact numbers for known caregivers / representatives who currently or will assist patient after discharge: LAYLA MITCHELL, SISTER, * Verbal permission to speak to the caregivers and representatives has been obtained from the patient. N/A * Community resources currently utilized None * Please name any agencies selected above. NONE * Additional services required to return to the preadmission environment? No * Can the patient safely return to the preadmission environment? Yes * Has this patient been hospitalized within the prior 30 days at any hospital? No Coverage Notice Reviewer: [email or web address] Daniella Vincent Notice Issued Date-Time: 09/27/2018 12:40 Notice Type: IM Discharge Notice Notice Delivered To: Patient Relationship to Patient: Out Of School Hours Care Worker Name: Delivery Method: HAND - Hand Delivered Racheal Days: Prior Verbal Notification: Recipient Understood Notice: Yes Recipient Signature: Yes Med Rec Note Co-signed by Attending: Coverage Notice Comment: Reviewer: [email or web address] Daniella Vincent Notice Issued Date-Time: 09/27/2018 12:40 Notice Type: Patient Choice Letter Notice Delivered To: Patient Relationship to Patient: Out Of School Hours Care Worker Name: Delivery Method: HAND - Hand Delivered Racheal Days: Prior Verbal Notification: Recipient Understood Notice: Yes Recipient Signature: Yes Med Rec Note Co-signed by Attending: Coverage Notice Comment: [facility] Last DP export: 10/20/18 3:34 p Patient Name: CAROLE MCKENNA Page [id number] at 1642 All edits/amendments must be made on the electronic document DICTATION DATE: 10/20/181640 SYNTHETIC RESIN OPERATOR: ALEJANDRA 10/20/181640 RPT#: [id number] DC DATE: STATUS: ADM IN [facility] [address] [place] [address] END OF REPORT
[2018-10-20] MEDS ORDERED: ELIQUIS5 MG PO (16:54)
--- NOTE | 2018-10-20 17:13 | MORECARE ---
CASE MANAGEMENT DISCHARGE SUMMARY PATIENT: CAROLE MCKENNA UNIT: [id number] ADM DATE: 09/15/18 AGE: 63 : 57 SEX: M ROOM/BED: D.2112 AUTHOR: MEGHAN SMALL PHYSICIAN: REFERRING PHYSICIAN: GILLIAN WILSON MD DATE OF SERVICE: 10/20/18 Discharge Plan Patient Name: CAROLE MCKENNA Facility: [facility]:[place] : 1955 Planned Disposition: Home with Home Health Anticipated Discharge Date: 10/20/18 Discharge Date: Expected LOS: 35 Initial Reviewer: [email or web address] Initial Review Date: 09/15/2018 Generated: 10/20/18 6:13 pm Comments DCP- Discharge Planning Updated by [email or web address]: Javier Vincent on 10/20/18 3:[address] Patient Name: CAROLE MCKENNA Encounter No: [id number] : 1955 Primary Insurance: MEDICARE A & B Anticipated DC Date: 10-20-2018 Planned Disposition: Home with Home Health External Planned Provider:[facility] DCP follow-up note: CM, RECEIVED ORDER FOR HOME HEALTH, MET WITH PT WHO IS IN AGREEMENT WITH DISCHARGE, WANTS [facility] AND IS STILL GOING TO HIS EX WIFES HOME LOCATED AT: [address] [place] [address]. [address], PHONE [phone]. PT DRIVING HOME AT DISCHARGE. IMPORTANT MESSAGE FROM MEDICARE PROVIDED AND EXPLAINED. CHOICE FOR [facility] PREVIOUSLY SIGNED. CM CALLED [facility] OFFICE, , SPOKE TO VISH WHO ACCEPTED REFERRAL FOR HOME HEALTH CM FAXED REFERRAL TO [facility] AT [phone]. [facility] [phone]. [facility] TO ADMIT TOMORROW FOR HOME HEALTH. DR. SHARPE NOTIFIED. Javier Vincent, CASE MANAGEMENT DCP- Discharge Planning Updated by [email or web address]: Javier Vincent on 09/27/18 1:[address] Patient Name: CAROLE MCKENNA Encounter No: [id number] : 1955 Primary Insurance: MEDICARE A & B Anticipated DC Date: 09-27-2018 Planned Disposition: Home with Home Health External Planned Provider: [facility], [place] DC follow-up note: CM, RECEIVED ORDER FOR "HOMELESS". CM MET WITH PT IN ROOM TO DISCUSS DISCHARGE NEEDS AND PLANNING. CM DISCUSSED AVAILABILITY OF HOME HEALTH, REHAB SERVICES AND MEDICAL EQUIPMENT. PT STATES THAT IF HE NEEDS HOME HEALTH, HE WANTS HOME HEALTH WITH [facility] OUT OF [place]. HE HAS USED THEM IN THE PAST. PT REPORTS HE WILL BE STAYING WITH HIS EX AT: [address] [place]. [address], PHONE [phone]. PT DRIVING HOME AT DISCHARGE. IMPORTANT MESSAGE FROM MEDICARE PROVIDED AND EXPLAINED. CHOICE FOR [facility] SIGNED. CM TO FOLLOW AND ASSIST NEEDED. CM TO ARRANGE HOME HEALTH WITH [facility] IN [place] IF PHYSICIAN AGREES AND PROVIDES HOME HEALTH ORDERS. Javier Vincent, CASE MANAGEMENT DCP- Discharge Planning Updated by [email or web address]: Javier Vincent on 09/19/18 3:[address] Patient Name: CAROLE MCKENNA Admission Status: ER Accout number: [id number] Admission Date: 09-15-2018 : 1955 Admission Diagnosis:EDEMA, UNSPECIFIED Attending: SINTIA WILSON Current LOS: 4 Anticipated DC Date: 09-20-2018 Planned Disposition: Home Primary Insurance: MEDICARE A & B Discharge Planning Comments: CM MET WITH PT IN ROOM TO DISCUSS DISCHARGE PLANNING AND NEEDS. PT REPORTS BEING HOMELESS AND LIVING IN HIS CAR, INDEPENDENTLY AND ALONE. PT HAS A CANE WITH NO MEDICAL EQUIPMENT PROVIDER PREFERENCE. PT HAS NO OUTSIDE SERVICES ASSISTING IN THE HOME. CM DISCUSSED AVAILABILITY OF HOME HEALTH, REHAB SERVICES AND MEDICAL EQUIPMENT. PT DENIES DISCHARGE NEEDS, REPORTS HIS CAR IS IN THE PARKING LOT FOR DISCHARGE PT DROVE HIMSELF TO THE HOSPITAL. PT IS SAVING TO RENT A PLACE IN THE FUTURE AND THINKS THAT $400 FOR SUBSUDIZED APARTMENT WITH GOV[employer]OUSING IS "TOO MUCH TO PAY". PT REPORTS BEING ON THE GOVERNMENT HOUSING WAITING LIST. PT BUYS BOTTLED WATER AND USES [facility] FOR SHOWER AND BATHROOM. PT DENIES DISCHARGE NEEDS AT THIS TIME. PT IS DISCHARGING HOMELESS AND LIVES IN HIS CARE, DENIES DISCHARGE NEEDS AT THIS TIME. CM TO FOLLOW AND ASSIST IF NEEDED. Coke Burner: Javier Vincent DCPIA - Discharge Planning Initial Assessment Updated by [id number]: Javier Vincent on 09/19/18 4:02 pm * Is the patient Alert and Oriented? Yes * How many steps to enter\\exit or inside your home? NONE * PCP DR[facility]AL[facility] IN [facility] * Pharmacy [facility] IN [facility] * Preadmission Environment Homeless * Other Environment LIVING IN CAR * Facility Name NONE * ADLs Independent * Equipment Cane * Other Equipment NO MEDICAL EQUIPMENT PROVIDER PREFERENCE * List name and contact numbers for known caregivers / representatives who currently or will assist patient after discharge: LAYLA MITCHELL, SISTER, * Verbal permission to speak to the caregivers and representatives has been obtained from the patient. N/A * Community resources currently utilized None * Please name any agencies selected above. NONE * Additional services required to return to the preadmission environment? No * Can the patient safely return to the preadmission environment? Yes * Has this patient been hospitalized within the prior 30 days at any hospital? No Coverage Notice Reviewer: [email or web address] Daniella Vincent Notice Issued Date-Time: 09/27/2018 12:40 Notice Type: IM Discharge Notice Notice Delivered To: Patient Relationship to Patient: Gps Navigation Installer Name: Delivery Method: HAND - Hand Delivered Racheal Days: Prior Verbal Notification: Recipient Understood Notice: Yes Recipient Signature: Yes Med Rec Note Co-signed by Attending: Coverage Notice Comment: Reviewer: [email or web address] Daniella Vincent Notice Issued Date-Time: 09/27/2018 12:40 Notice Type: Patient Choice Letter Notice Delivered To: Patient Relationship to Patient: Gps Navigation Installer Name: Delivery Method: HAND - Hand Delivered Racheal Days: Prior Verbal Notification: Recipient Understood Notice: Yes Recipient Signature: Yes Med Rec Note Co-signed by Attending: Coverage Notice Comment: [facility] Last DP export: 10/20/18 3:42 p Patient Name: CAROLE MCKENNA Page 17704 at 1713 All edits/amendments must be made on the electronic document DICTATION DATE: 10/20/181712 LENS MOLD SETTER: ALEJANDRA 10/20/181712 RPT#: [id number] DC DATE: STATUS: ADM IN [facility] [address] [place] [address] END OF REPORT
--- NOTE | 2018-10-20 18:08 | NUR ---
VERBAL AND WRITTEN DISCHARGE INSTRUCTIONS GIVEN TO PATIENT AND ALSO EXPLAINED HOW TO EMPTY AND RECORD THE DRAIN OUTPUT A DAILY LOG. SALINE LOCK REMOVED WITH CATH TIP INTACT. DISCHARGED HOME VIA WHEELCHAIR.
== END 2018-10-20 18:24 | disposition home health service (06) | DRG 802 ==
LOC: D.ER 20:23 → D.M2 09-15 01:12
PROVIDERS: Family Medicine; General Practice; Internal Medicine; Internal Medicine Nephrology; Radiology Diagnostic Radiology; Specialist; Surgery; ADMIT Emergency Medicine; ATTEND Emergency Medicine
PROC: 07BH0ZX Excision of Right Inguinal Lymphatic, Open Approach, Diagnostic (ICD-10-PCS; principal; 2018-09-18 11:15)
PROC: 0TB03ZX Excision of Right Kidney, Percutaneous Approach, Diagnostic (ICD-10-PCS; 2018-09-19)
PROC: 0W9M30Z Drainage of Male Perineum with Drainage Device, Percutaneous Approach (ICD-10-PCS; 2018-09-28)
PROC: 3E0 Administration, Physiological Systems and Anatomical Regions, Introduction (ICD-10-PCS; 2018-10-03)
PROC: 3E0 Administration, Physiological Systems and Anatomical Regions, Introduction (ICD-10-PCS; 2018-10-06)
PROC: 3E0 Administration, Physiological Systems and Anatomical Regions, Introduction (ICD-10-PCS; 2018-10-10)
PROC: 3E0 Administration, Physiological Systems and Anatomical Regions, Introduction (ICD-10-PCS; 2018-10-16)
DX: R59.0 Localized enlarged lymph nodes (principal); I50.33 Acute on chronic diastolic (congestive) heart failure; I48.92 Unspecified atrial flutter; A93.8 Other specified arthropod-borne viral fevers; N04.9 Nephrotic syndrome with unspecified morphologic changes; R60.1 Generalized edema; E88.09 Other disorders of plasma-protein metabolism, not elsewhere classified; E11.65 Type 2 diabetes mellitus with hyperglycemia; D64.9 Anemia, unspecified; E03.9 Hypothyroidism, unspecified; I48.91 Unspecified atrial fibrillation; R80.9 Proteinuria, unspecified; E11.21 Type 2 diabetes mellitus with diabetic nephropathy; S20.462A Insect bite (nonvenomous) of left back wall of thorax, initial encounter; W57.XXXA Bitten or stung by nonvenomous insect and other nonvenomous arthropods, initial encounter; I89.8 Other specified noninfective disorders of lymphatic vessels and lymph nodes; Z68.28 Body mass index [BMI] 28.0-28.9, adult

== ENCOUNTER 2018-10-26 10:17 | Outpatient (CLI) | payer MEDICARE ==
[~2018-10-26] VITALS: Ht 180.3 cm; Wt 77.3 kg
--- NOTE | ~2018-10-26 | HEMODYNAMI ---
PATIENT:CAROLE MCKENNA MEDICAL RECORD: [id number] : [birth year] LOCATION:GUY ADMISSION DATE: 10/26/18 Generatedon:10/26/201815:33 Patient name: CAROLE MCKENNA Patient #: [id number] SSN: : 1 Date of study: 10/26/2018 Page: Of Hemodynamic Procedure Report Patient Data Patient Demographics Procedure consent was obtained First Name: CAROLE Gender: Male Last Name: CLARISA : 1955 [facility] Initial: YAMINI Age: 63 year(s) Patient #: [id number] Race: Unknown Additional ID: [id number] Contact details Address: [place] [address] State: [place] City: [place] Zip code: [address] Past Medical History Allergies Allergen Reaction Date Comments Reported Penicillins 09/28/2018 Penicillins 10/03/2018 Penicillins 10/10/2018 Penicillins 10/16/2018 Penicillins 10/19/2018 Penicillins 10/26/2018 Admission Admission Data Admission Date: 10/26/2018 Admission Time: 10:17 Height (in.): 71 BSA: 1.97 (m2) Height (cm.): 180.34 BMI: 23.71 (kg/m2) Weight (lbs.): 170 Weight (kg.): 77.11 Procedure Procedure Types Cath Procedure Peripheral Cath Diagnostic Procedure Abscess Abscess Drain Injection Procedure Description Procedure Date Procedure Date: 10/26/2018 Procedure Start Time: 15:14 Procedure Staff Name Function Kiko Silveira MD Performing Physician Sofiya Mckeon RT Underground Foreman Mone Barbour RN Nurse Pratik Witt RT Scrub Procedure Data Cath Procedure Fluoroscopy Diagnostic fluoroscopy Total fluoroscopy Time: 1.8 time: 1.8 min min Diagnostic fluoroscopy Total fluoroscopy dose: 8 dose: 8 mGy mGy Contrast Material Contrast Material Type Amount (ml) Isovue 300 12 Hemodynamics Rest BSA: 1.97 (m2) O2 Consumption: Estimated: 267.92 (ml/min) O2 Consumption indexed : Estimated:136 (ml/min/m) Pre Cath Intra NCS Post Cath Procedure Log Time Note 14:54:14 Patient Height : 71 inches 14:54:19 Patient Weight : 170 lbs 14:54:48 Time tracking: Regular hours (M-F 7:00 - 5:00) 14:54:56 Plan of Care:Hemodynamics will remain stable., Cardiac rhythm will remain stable., Comfort level will be maintained., Respiratory function will remain adequate., Patient/ family verbilizes understanding of procedure., Procedure tolerated without complication., Recovers from procedure without complications.. 14:54:58 Correct patient and procedure confirmed by team. 14:55:00 Signed procedure consent form obtained from patient. 14:55:05 H&P Date Dictated: 10/26/2018 Within 30 days and on chart.. 14:55:09 Pre-procedure instructions explained to patient. 14:55:09 Pre-op teaching completed and patient verbalized understanding. 14:55:12 Family unavailable. 14:55:14 Patient NPO since Midnight. 14:55:23 Patient allergic to Penicillins 14:55:27 Is the patient allergic to Iodine/contrast media? No. 14:55:31 Patient diabetic? Yes. 14:55:35 If diabetic: On Metformin? No 14:55:37 - 14:55:43 Previous problem with sedation/anesthesia? No ? 14:55:45 Snore? Yes 14:55:48 Sleep apnea? No 14:55:52 Deviated septum? No 14:55:54 Opens mouth fully? Yes 14:55:55 Sticks out tongue? Yes 14:55:58 Airway obstruction? No ? 14:56:02 Dentures? No ? 14:56:04 - 14:56:13 IV patent on arrival in left hand with D5/.45%NaCl at KVO. 14:56:25 Right Hip was prepped with chlora-prep and draped in sterile fashion. 15:08:08 Use device set IR Diagnostic 15:08:11 Sterile Angiographic Pack opened to sterile field. 15:08:12 Bag Decanter () opened to sterile field. 15:08:23 BAG, DRAINAGE EMPTY 600ML W/TATIANA ([id number]) opened to sterile field. 15:11:06 Physician arrived 15:11:08 --------ALL STOP TIME OUT------ 15:11:09 Final Timeout: patient, procedure, and site verified with staff and physician. All members of the team are in agreement. 15:12:16 Procedure started. 15:12:16 Full Disclosure recording started 15:14:36 Local anesthetic to Right Hip with Lidocaine 1% by Kiko Silveira MD.INITIAL ACCESS ONLY 15:15:31 Abscession 8Fr drainage catheter ([id number]) opened to sterile field. 15:15:33 ROADRUNNER .035 145 glide wire (D55991) opened to sterile field. 15:17:37 STOPCOCK 3-Way Large Bore (D30985) opened to sterile field. 15:31:28 8fr drain was exchanged 15:31:33 Procedure ended.(Physican Out) 15:31:54 Fluoroscopy time 01.80 minutes. 15:31:58 Fluoroscopy dose: 8 mGy 15:31:58 Flurop Dose total: 8 15:32:02 Contrast amount:Isovue 300 12ml. 15:32:54 Procedure and supply charges have been captured, reviewed, submitted an d are correct. 15:33:29 Report given to Outpatients. Device Usage Item Name Manufacture Quantity Catalog Hospital Part Current [facility] l Lot# / Number Charge Number Stock Stock Serial# Code [facility] 1 [id number] [id number] 5 Angiographic Health Pack Bag Decanter Microtek 1 155029 63426 244232 5 () Medical Inc. BAG, Merit Medical 1 [id number] 162280 673965 494989 5 DRAINAGE EMPTY 600ML W/TATIANA (VKL332) Abscession Angiodynamics 1 [id number] 988295 010523 256005 5 8Fr drainage catheter ([id number]) [facility] 1 [id number] 800097 891635 258184 5 [id number] .035 145 glide wire (J75354) [facility] 1 V92336 826675 3894 296636 5 [id number] 3-Way Large Bore (K25461) Signature Audit [place] Stage Time Signature Unsigned Intra-Procedure 10/26/2018 Sofiya Mckeon 3:33:45 PM RT(R) [facility] [address] [place] [address]
[~2018-10-26 10:17] MED LIST changes: +LISINOPRIL10 MG PO; +MAGNESIUM OXID250 MG PO; +MYSOLINE 50 MG50 MG PO
[2018-10-26 10:55] LABS: BASOPHILS 0.3 % (0-2); EOSINOPHILS 3.8 % (0-7); HEMATOCRIT 35.2 % (42.0-54.0); HEMOGLOBIN 12.3 g/dL (13.5-17.5); IMMATURE GRANULOCYTES 0.2 % (0-5); LYMPHOCYTES 33.8 % (15-50); MCH 30.3 pg (26.0-34.0); MCHC 34.9 g/dL (31.0-37.0); MCV 86.7 fL (80.0-100.0); MEAN PLATELET VOLUME 8.1 fL (7.4-10.4); MONOCYTES 6.9 % (2-11); PLATELET COUNT 268 10x3/uL (130-400); RBC 4.06 10x6/uL (4.20-6.10); RDW 12.8 % (11.5-14.5); WBC 6.3 10x3/uL (4.8-10.8)
[2018-10-26 11:05] LABS: ANION GAP 11.9 mmol/L (8-16); CALCIUM 8.5 mg/dL (8.5-10.1); CARBON DIOXIDE 25.6 mmol/L (21.0-32.0); CREATININE - SERUM 1.4 mg/dL (0.6-1.3); POTASSIUM - SERUM 5.5 mmol/L (3.5-5.1)
[2018-10-26 11:16] LABS: APTT 25.9 SECONDS (22.8-39.4); INR 0.91 (0.85-1.17); PROTIME 11.8 SECONDS (11.6-15.0)
--- NOTE | 2018-10-26 12:02 | NUR ---
1202 K+ (5.5) CALLED TO CLARIBEL GAMING RN. SHE STATES SHE WILL REPORT THIS TO THE RADIOLOGIST.
[2018-10-26 12:44] VITALS: BP 131/60; Ht 180.3 cm; Wt 77.3 kg
--- NOTE | 2018-10-26 17:12 | NUR ---
1558 PT ARRIVED WITHOUT RECEIVING ANY ANESTHESIA. VS FOLLOWS; BP 117/69, HR 68, RESP 16, POX 99. PT AWAKE AND ALERT. WILL SERVE LUNCH THEN DISCHARGE HOME.
== END 2018-10-26 16:30 | disposition home or self-care (01) ==
LOC: D.SP 10:17
PROVIDERS: Specialist; ATTEND Internal Medicine
DX: I89.8 Other specified noninfective disorders of lymphatic vessels and lymph nodes (principal); Z01.812 Encounter for preprocedural laboratory examination

== ENCOUNTER 2018-10-31 05:36 | Outpatient (CLI) | payer MEDICARE ==
[~2018-10-31] VITALS: Ht 180.3 cm; Wt 76.4 kg
--- NOTE | ~2018-10-31 | HEMODYNAMI ---
PATIENT:CAROLE MCKENNA MEDICAL RECORD: [id number] : [birth year] LOCATION:DBRIANNA ADMISSION DATE: 10/31/18 Generatedon:10/31/201810:36 Patient name: CAROLE MCKENNA Patient #: [id number] SSN: : 1 Date of study: 10/31/2018 Page: Of Hemodynamic Procedure Report Patient Data Patient Demographics Procedure consent was obtained First Name: CAROLE Gender: Male Last Name: CLARISA : 1955 [facility] Initial: YAMINI Age: 63 year(s) Patient #: [id number] Race: Unknown Additional ID: [id number] Contact details Address: [place] [address] State: [place] City: [place] Zip code: [address] Past Medical History Allergies Allergen Reaction Date Comments Reported Penicillins 09/28/2018 Penicillins 10/03/2018 Penicillins 10/10/2018 Penicillins 10/16/2018 Penicillins 10/19/2018 Penicillins 10/26/2018 Penicillins 10/31/2018 Admission Admission Data Admission Date: 10/31/2018 Admission Time: 5:36 Height (in.): 71 BSA: 1.96 (m2) Height (cm.): 180.34 BMI: 23.43 (kg/m2) Weight (lbs.): 168 Weight (kg.): 76.2 Procedure Procedure Types Cath Procedure Peripheral Cath Diagnostic Procedure Abscess Sclerotherapy w/Imaging Procedure Description Procedure Date Procedure Date: 10/31/2018 Procedure Start Time: 10:12 Procedure Staff Name Function Kiko Silveira MD Performing Physician Sofiya Mckeon RT Celery Packer Blanca Shore RN Nurse Mone Barbour RN Nurse MARINA ARREGUIN RT Scrub Hemodynamics Rest BSA: 1.96 (m2) O2 Consumption: Estimated: 225.62 (ml/min) O2 Consumption indexed : Estimated:115.11 (ml/min/m) Heart Rate: 65 (bpm) Snapshots Pre Cath Intra NCS Post Cath Vital Signs Time Heart Resp SPO2 etCO2 NIBP (mmHg) Rhythm Pain Sedation Rate (ipm) (%) (mmHg) Status Level (bpm) 10:29:04 62 8 100 0 159/62(130) NSR 0 (11) 10(A) , No pain 10:33:24 68 20 99 0 153/74(127) NSR 0 (11) 10(A) , No pain Procedure Log Time Note 9:46:07 Patient Height : 71 inches 9:46:12 Patient Weight : 168 lbs 9:46:48 Time tracking: Regular hours (M-F 7:00 - 5:00) 9:55:17 Plan of Care:Hemodynamics will remain stable., Cardiac rhythm will remain stable., Comfort level will be maintained., Respiratory function will remain adequate., Patient/ family verbilizes understanding of procedure., Procedure tolerated without complication., Recovers from procedure without complications.. 9:55:23 Patient received from Outpatients to IR Alert and oriented. Tansferred to table in Supine position. 9:55:29 Signed procedure consent form obtained from patient. 9:55:32 Signed procedure consent form obtained from patient. 9:56:26 ECG and BP/O2 sat monitors applied to patient. 9:56:36 Pre-procedure instructions explained to patient. 9:56:37 Pre-op teaching completed and patient verbalized understanding. 9:56:41 Family unavailable. 9:56:44 Patient NPO since Midnight. 9:57:09 Patient allergic to Penicillins 9:58:16 Is the patient allergic to Iodine/contrast media? No. 9:58:25 Patient diabetic? Yes. 9:58:29 If diabetic: On Metformin? Yes 9:58:35 If on Metformin: Last Dose? 10/30/2018 9:58:38 - 9:58:42 ----Pre-sedation anethsthesia assessment.---- NO SEDATION NEEDED FOR PROCEDURE 9:59:11 Use device set IR Diagnostic 9:59:14 Tegaderm 4 x 4 (1626W) opened to sterile field. 9:59:15 Sterile Angiographic Pack opened to sterile field. 9:59:16 Bag Decanter () opened to sterile field. 10:00:00 BAG, DRAINAGE EMPTY 600ML W/TATIANA (XCD487) opened to sterile field. 10:00:09 - 10:11:54 Physician arrived 10:11:56 --------ALL STOP TIME OUT------ 10:11:57 Final Timeout: patient, procedure, and site verified with staff and physician. All members of the team are in agreement. 10:12:39 Procedure started. 10:12:39 Full Disclosure recording started 10:27:34 Baseline sample Acquired. 10:27:42 Vital chart was started 10:35:36 5CC OF DEHYDRATED ALCOHOL INJECTED INTO ABSCESS 10:35:44 Procedure ended.(Physican Out) 10:36:09 Procedure and supply charges have been captured, reviewed, submitted an d are correct. 10:36:31 Report given to Outpatients. 10:36:36 Patient transfered to Outpatients with Stretcher. 10:36:52 Vital chart was stopped Device Usage Item Name Manufacture Quantity Catalog Hospital Part Current Minimal Lot# / Number Charge Number Stock Stock Serial# Code Tegaderm 4 x 3M 1 [id number] [id number] [id number] 5 4 (1626W) Sterile Cardinal 1 [id number] 311376 879734 5 Angiographic Health Pack Bag Decanter Microtek 1 009267 57513 065183 5 (2001S) Medical Inc. BAG, Merit 1 [id number] 809223 361228 535668 5 DRAINAGE Medical EMPTY 600ML W/TATIANA (DRK846) Signature Audit [place] Stage Time Signature Unsigned Intra-Procedure 10/31/2018 Sofiya Mckeon 10:36:49 AM RT(R) [address] [place] [address]
[2018-10-31] MEDS ORDERED: GLIPIZIDE10 MG PO (06:43)
[2018-10-31 06:49] VITALS: Ht 180.3 cm; Wt 76.4 kg
[2018-10-31 06:59] LABS: ANION GAP 12.7 mmol/L (8-16); CALCIUM 8.1 mg/dL (8.5-10.1); CREATININE - SERUM 1.4 mg/dL (0.6-1.3); POTASSIUM - SERUM 5.7 mmol/L (3.5-5.1)
[2018-10-31 07:02] LABS: BASOPHILS 0.4 % (0-2); EOSINOPHILS 3.7 % (0-7); HEMATOCRIT 33.4 % (42.0-54.0); HEMOGLOBIN 11.5 g/dL (13.5-17.5); IMMATURE GRANULOCYTES 0.2 % (0-5); LYMPHOCYTES 41.3 % (15-50); MCH 29.8 pg (26.0-34.0); MCHC 34.4 g/dL (31.0-37.0); MCV 86.5 fL (80.0-100.0); MONOCYTES 7.9 % (2-11); NEUTROPHILS 46.5 % (40-80); PLATELET COUNT 288 10x3/uL (130-400); RBC 3.86 10x6/uL (4.20-6.10); RDW 13.1 % (11.5-14.5); WBC 5.5 10x3/uL (4.8-10.8)
[2018-10-31 07:04] LABS: APTT 23.3 SECONDS (22.8-39.4); PROTIME 12.7 SECONDS (11.6-15.0)
--- NOTE | 2018-10-31 11:03 | NUR ---
DC INSTRUCTIONS GIVEN TO PT. STATES UNDERSTANDING. DC'D IV CATH FULLY INTACT. PT DID NOT RECEIVE SEDATION FOR THIS PROCEDURE. HE WILL DRIVE HIMSELF HOME.
--- NOTE | 2018-10-31 11:22 | NUR ---
PT LEFT UNIT AMBULATING AT 1105
== END 2018-10-31 11:05 | disposition home or self-care (01) ==
LOC: D.SP 05:36 → D.RAD 08:00 → D.SP 08:00
PROVIDERS: ATTEND Specialist
DX: I89.8 Other specified noninfective disorders of lymphatic vessels and lymph nodes (principal); Z01.812 Encounter for preprocedural laboratory examination

== ENCOUNTER 2018-11-09 06:41 | Outpatient (CLI) | payer MEDICARE ==
[~2018-11-09] VITALS: Ht 180.3 cm; Wt 75.0 kg
--- NOTE | ~2018-11-09 | HEMODYNAMI ---
PATIENT:CAROLE MCKENNA MEDICAL RECORD: [id number] : 57 LOCATION:DBRIANNA ADMISSION DATE: 11/09/18 Generatedon:11/09/20189:37 Patient name: CAROLE MCKENNA Patient #: [id number] SSN: : 1 Date of study: 11/09/2018 Page: Of Hemodynamic Procedure Report Patient Data Patient Demographics Procedure consent was obtained First Name: CAROLE Gender: Male Last Name: CLARISA : 1955 [facility] Initial: YAMINI Age: 63 year(s) Patient #: [id number] Race: Unknown Additional ID: [id number] Contact details Address: [place] [address] State: [place] City: [place] Zip code: [address] Past Medical History Allergies Allergen Reaction Date Comments Reported Penicillins 09/28/2018 Penicillins 10/03/2018 Penicillins 10/10/2018 Penicillins 10/16/2018 Penicillins 10/19/2018 Penicillins 10/26/2018 Penicillins 10/31/2018 Penicillins 11/09/2018 Admission Admission Data Admission Date: 11/09/2018 Admission Time: 6:41 Procedure Procedure Types Cath Procedure Peripheral Cath Diagnostic Procedure Abscess Sclerotherapy w/Imaging Procedure Description Procedure Date Procedure Date: 11/09/2018 Procedure Start Time: 9:18 Procedure Staff Name Function Hector Waller MD Performing Physician Sofiya Mckeon RT Monitor Pratik Witt RT Scrub Mone Barbour RN Nurse Procedure Data Cath Procedure Fluoroscopy Diagnostic fluoroscopy Total fluoroscopy Time: 0.2 time: 0.2 min min Diagnostic fluoroscopy Total fluoroscopy dose: 1 dose: 1 mGy mGy Contrast Material Contrast Material Type Amount (ml) Isovue 300 3 Hemodynamics Rest Pre Cath Intra NCS Post Cath Procedure Log Time Note 8:57:24 Mone Barbour RN sent for patient. Start room use. 8:57:33 Time tracking: Regular hours (M-F 7:00 - 5:00) 8:57:39 Plan of Care:Hemodynamics will remain stable., Cardiac rhythm will remain stable., Comfort level will be maintained., Respiratory function will remain adequate., Patient/ family verbilizes understanding of procedure., Procedure tolerated without complication., Recovers from procedure without complications.. 8:57:53 Warm blankets applied, and geovanna hugger turned on for patient comfort. 8:57:54 Correct patient and procedure confirmed by team. 8:57:56 Signed procedure consent form obtained from patient. 8:57:57 ECG and BP/O2 sat monitors applied to patient. 8:57:59 Full Disclosure recording started 8:57:59 8:58:02 H&P Date Dictated: 11/09/2018 H&P Addendum completed by physician on day of procedure. (MUST COMPLETE FOR ALL OUTPATIENTS). 8:58:04 Pre-procedure instructions explained to patient. 8:58:05 Pre-op teaching completed and patient verbalized understanding. 8:58:09 Patient NPO since Midnight. 8:58:17 Family unavailable. 9:08:38 Patient allergic to Penicillins 9:08:48 Is the patient allergic to Iodine/contrast media? No. 9:09:09 Is patient on blood thinner?No 9:09:38 Patient diabetic? Yes. 9:09:59 If diabetic: On Metformin? Yes 9:10:02 If on Metformin: Last Dose? 11/09/2018 9:10:04 9:10:36 9:12:18 IV patent on arrival in left hand with D5/.45%NaCl at KVO. 9:12:38 Right Hip/thigh area was prepped with chlora-prep and draped in sterile fashion. 9:16:35 Physician arrived 9:17:45 --------ALL STOP TIME OUT------ 9:17:45 Final Timeout: patient, procedure, and site verified with staff and physician. All members of the team are in agreement. 9:18:10 Procedure started. 9:18:59 Fire Safety Assessment: A--An alcohol-based skin anteseptic being used preoperatively. 9:19:59 STOPCOCK 3-Way Large Bore ([id number]) opened to sterile field. 9:20:21 Use device set IR Diagnostic 9:20:24 Sterile Angiographic Pack opened to sterile field. 9:20:25 Bag Decanter () opened to sterile field. 9:20:50 BAG, DRAINAGE EMPTY 600ML W/TATIANA (ZYQ593) opened to sterile field. 9:22:44 9:28:03 1cc of dehydrated alcohol injected into abscess 9:29:03 Procedure ended.(Physican Out) 9:36:05 Fluoroscopy time 00.20 minutes. 9:36:09 Fluoroscopy dose: 1 mGy 9:36:09 Flurop Dose total: 1 9:36:14 Contrast amount:Isovue 300 3ml. 9:36:32 Procedure and supply charges have been captured, reviewed, submitted and are correct. Device Usage Item Name Manufacture Quantity Catalog Hospital Part Current Minimal Lot# / Number Charge Number Stock Stock Serial# Code CODY [employer] 1 [id number] 1596 [id number] 5 [id number] 3-Way Large Bore ([id number]) Sterile Cardinal 1 [id number] 512342 233067 5 Angiographic Health Pack Bag Decanter Microtek 1 953633 52700 094063 5 (2002S) Medical Inc. BAG, Merit 1 [id number] 903533 894968 [id number] 5 DRAINAGE Medical EMPTY 600ML W/TATIANA (ZWW686) Signature Audit [place] Stage Time Signature Unsigned Intra-Procedure 11/09/2018 Sofiya Mckeon 9:37:19 AM RT(R) Signatures Monitor : Sofiya Mckeon RT Signature : Date : Time : [address] [place] [address]
[~2018-11-09 06:41] MED LIST changes: +GLIPIZIDE10 MG PO
[2018-11-09 07:15] LABS: ANION GAP 13.7 mmol/L (8-16); CALCIUM 8.3 mg/dL (8.5-10.1); CARBON DIOXIDE 21.5 mmol/L (21.0-32.0); CREATININE - SERUM 1.5 mg/dL (0.6-1.3); POTASSIUM - SERUM 5.2 mmol/L (3.5-5.1)
[2018-11-09 07:23] LABS: APTT 29.1 SECONDS (22.8-39.4); INR 1.07 (0.85-1.17); PROTIME 13.4 SECONDS (11.6-15.0)
[2018-11-09 07:49] LABS: BASOPHILS 0.4 % (0-2); EOSINOPHILS 3.8 % (0-7); HEMOGLOBIN 10.9 g/dL (13.5-17.5); IMMATURE GRANULOCYTES 0.2 % (0-5); MCH 29.5 pg (26.0-34.0); MCHC 34.1 g/dL (31.0-37.0); MCV 86.5 fL (80.0-100.0); MEAN PLATELET VOLUME 8.1 fL (7.4-10.4); MONOCYTES 8.6 % (2-11); PLATELET COUNT 330 10x3/uL (130-400); RDW 12.4 % (11.5-14.5); WBC 5.5 10x3/uL (4.8-10.8)
[2018-11-09 08:21] VITALS: BP 106/55; Ht 180.3 cm; Wt 75.0 kg
== END 2018-11-09 10:53 | disposition home or self-care (01) ==
LOC: D.SP 06:41
PROVIDERS: ATTEND Specialist
DX: I89.8 Other specified noninfective disorders of lymphatic vessels and lymph nodes (principal); Z01.812 Encounter for preprocedural laboratory examination

== ENCOUNTER 2018-11-16 06:34 | Outpatient (CLI) | payer MEDICARE ==
[~2018-11-16] VITALS: Ht 180.3 cm; Wt 76.4 kg
--- NOTE | ~2018-11-16 | HEMODYNAMI ---
PATIENT:CAROLE MCKENNA MEDICAL RECORD: [id number] : 57 LOCATION:[facility] ADMISSION DATE: 11/16/18 Generatedon:11/16/201810:23 Patient name: CAROLE MCKENNA Patient #: [id number] SSN: : 1 Date of study: 11/16/2018 Page: Of Hemodynamic Procedure Report Patient Data Patient Demographics Procedure consent was obtained First Name: CAROLE Gender: Male Last Name: CLARISA : 1955 [facility] Initial: YAMINI Age: 63 year(s) Patient #: [id number] Race: Unknown Additional ID: [id number] Contact details Address: [place] [address] State: [place] City: [place] Zip code: [address] Past Medical History Allergies Allergen Reaction Date Comments Reported Penicillins 09/28/2018 Penicillins 10/03/2018 Penicillins 10/10/2018 Penicillins 10/16/2018 Penicillins 10/19/2018 Penicillins 10/26/2018 Penicillins 10/31/2018 Penicillins 11/09/2018 Penicillins 11/16/2018 Admission Admission Data Admission Date: 11/16/2018 Admission Time: 6:34 Procedure Procedure Types Cath Procedure Peripheral Cath Diagnostic Procedure Abscess Abscess Drain Injection Procedure Description Procedure Date Procedure Date: 11/16/2018 Procedure Start Time: 9:58 Procedure Staff Name Function Kiko Silveira MD Performing Physician Pratik Witt RT Monitor MARINA ARREGUIN RT Scrub Mone Barbour RN Nurse Procedure Data Cath Procedure Fluoroscopy Diagnostic fluoroscopy Total fluoroscopy Time: 0.1 time: 0.1 min min Diagnostic fluoroscopy Total fluoroscopy dose: 2 dose: 2 mGy mGy Contrast Material Contrast Material Type Amount (ml) Isovue 300 2 Hemodynamics Rest Pre Cath Intra NCS Post Cath Procedure Log Time Note 9:38:01 Mone Barbour RN sent for patient. Start room use. 9:38:12 Time tracking: Regular hours (M-F 7:00 - 5:00) 9:38:23 Patient received from Outpatients to IR Alert and oriented. Tansferred to table in Supine position. 9:38:24 Correct patient and procedure confirmed by team. 9:38:26 Signed procedure consent form obtained from patient. 9:38:48 Full Disclosure recording started 9:38:48 - 9:38:49 Pre-procedure instructions explained to patient. 9:38:50 Pre-op teaching completed and patient verbalized understanding. 9:38:54 Family unavailable. 9:38:57 Patient NPO since Midnight. 9:39:21 Patient allergic to Penicillins 9:39:29 Is patient on blood thinner?No 9:39:34 Sharps counted by scrub and verified by R.N. 9:39:40 Right groin area was prepped with chlora-prep and draped in sterile fashion 9:39:45 Use device set IR Diagnostic 9:39:47 Bag Decanter (2002S) opened to sterile field. 9:39:48 Sterile Angiographic Pack opened to sterile field. 9:39:48 Tegaderm 4 x 4 ([id number]) opened to sterile field. 9:53:40 Physician arrived 9:53:40 --------ALL STOP TIME OUT------ 9:53:41 Final Timeout: patient, procedure, and site verified with staff and physician. All members of the team are in agreement. 9:53:45 Right groin site verified by team. 9:53:51 Sedation plan: None Medication:Lidocaine 9:58:14 Procedure started. 10:19:19 Procedure ended.(Physican Out) 10:20:47 Fluoroscopy time 00.10 minutes. 10:20:51 Fluoroscopy dose: 2 mGy 10:20:51 Flurop Dose total: 2 10:20:59 Sharps counted by scrub and verified by R.N. 10:21:13 Contrast amount:Isovue 300 2ml. 10:21:15 Insertion/operative site no bleeding no hematoma. 10:22:00 Post-op/insertion site Right groin dressed using a 4 x 4 and Tegaderm. 10:22:22 Post procedure instruction explained to patient.Patient verbalizes understanding. 10:22:23 Procedure and supply charges have been captured, reviewed, submitted an d are correct. 10:23:21 Report given to Outpatients. 10:23:25 Patient transfered to Outpatients with Stretcher. Device Usage Item Name Manufacture Quantity Catalog Hospital Part Current Minimal Lot# / Number Charge Number Stock Stock Serial# Code Bag Decanter Microtek 1 [id number] () [employer] Sterile Cardinal 1 [id number] Angiographic Health Pack Tegaderm 4 x 3M 1 [id number] 4 ([id number]) Signature Audit [place] [facility] Time Signature Unsigned Intra-Procedure 11/16/2018 Pratik 10:23:43 AM Eduar RT (R) (CV) Signatures Monitor : Pratik Signature : Eduar RT Date : Time : [facility] [address] [place] [address]
[2018-11-16 07:00] LABS: BASOPHILS 0.3 % (0-2); HEMATOCRIT 29.5 % (42.0-54.0); HEMOGLOBIN 10.1 g/dL (13.5-17.5); IMMATURE GRANULOCYTES 0.4 % (0-5); MCH 29.6 pg (26.0-34.0); MCHC 34.2 g/dL (31.0-37.0); MCV 86.5 fL (80.0-100.0); MEAN PLATELET VOLUME 7.5 fL (7.4-10.4); MONOCYTES 6.4 % (2-11); NEUTROPHILS 65.9 % (40-80); PLATELET COUNT 310 10x3/uL (130-400); RBC 3.41 10x6/uL (4.20-6.10); RDW 12.5 % (11.5-14.5); WBC 6.8 10x3/uL (4.8-10.8)
[2018-11-16 07:04] LABS: ANION GAP 11.5 mmol/L (8-16); CALCIUM 7.8 mg/dL (8.5-10.1); CREATININE - SERUM 1.4 mg/dL (0.6-1.3); POTASSIUM - SERUM 5.5 mmol/L (3.5-5.1)
[2018-11-16 07:23] LABS: APTT 29.2 SECONDS (22.8-39.4)
[2018-11-16 07:24] LABS: INR 0.99 (0.85-1.17); PROTIME 12.6 SECONDS (11.6-15.0)
[2018-11-16 07:50] VITALS: BP 142/61; Ht 180.3 cm; Wt 76.4 kg
--- NOTE | 2018-11-16 10:34 | NUR ---
PIV DC'D WITH TIP INTACT. PATIENT DRESSING IN PERSONAL CLOTHING 1040 DISCHARGED HOME VIA AMBULATORY
== END 2018-11-16 10:40 | disposition home or self-care (01) ==
LOC: D.RAD 06:34
PROVIDERS: ATTEND Specialist
DX: I89.8 Other specified noninfective disorders of lymphatic vessels and lymph nodes (principal)

== ENCOUNTER 2019-01-17 14:16 | Emergency (ER) | payer MEDICARE ==
[~2019-01-17] VITALS: Ht 180.3 cm; Wt 80.9 kg
[2019-01-17 14:20] VITALS: BP 139/60; Ht 180.3 cm; Wt 80.9 kg
[2019-01-17] MEDS ORDERED: BACLOFEN20 M1 PO (16:31)
[2019-01-17] MEDS ORDERED: VOLTAREN75 MG PO (16:31)
== END 2019-01-17 16:45 ==
LOC: D.ER 14:16
DX: S60.512A Abrasion of left hand, initial encounter (principal); S60.511A Abrasion of right hand, initial encounter; V43.52XA Car driver injured in collision with other type car in traffic accident, initial encounter; R07.9 Chest pain, unspecified; S16.1XXA Strain of muscle, fascia and tendon at neck level, initial encounter; I50.9 Heart failure, unspecified; E11.9 Type 2 diabetes mellitus without complications; K21.9 Gastro-esophageal reflux disease without esophagitis; R51 Headache

== ENCOUNTER → 2019-02-07 12:40 | Outpatient (CLI) | payer MEDICARE ==
[2019-01-17 14:20] VITALS: BMI 24.8
[~2019-02-07 12:40] MED LIST changes: +BACLOFEN20 M1 PO; +VOLTAREN75 MG PO
== END | disposition home or self-care (01) ==
LOC: D.LABREF 12:40
PROVIDERS: ATTEND Podiatrist Foot & Ankle Surgery
DX: L03.115 Cellulitis of right lower limb (principal)